=== PATIENT | male | born 1945 | race Caucasian/White ===

== ENCOUNTER → 2023-06-29 09:06 | Outpatient (REF) | payer MEDICARE, SELFPAY | LOC: RAD 09:06 | PROVIDERS: ATTENDING PHYSICIAN Specialist; FAMILY PHYSICIAN Family Medicine | DX: I63.312 Cerebral infarction due to thrombosis of left middle cerebral artery (principal) | CPT/HCPCS: 93880 ==

== ENCOUNTER 2023-09-15 22:51 | Inpatient (IN) | payer MEDICARE, SELFPAY ==
[2023-09-15] VITALS (25 sets, daily range): BP systolic 52–156; BP diastolic 34–111
[2023-09-15] MEDS: ADRENALIN 1 MG/10 ML IV (20:22)
[2023-09-15 20:28] LABS: % Basophils 0.6 % (0-2); % Eosinophils 0.3 % (0-6); % Immature Granulocytes 1.3 % (0-0.5); % Lymphocytes 43.3 % (20.5-51.1); % Monocytes 7.2 % (1.7-9.3); % Neutrophils 47.3 % (42.2-75.2); Absolute Basophils 0.1 10^3/uL (0-0.2); Absolute Immature Granulocytes 0.1 10^3/uL (0-0.05); Absolute Lymphocytes 3.9 10^3/uL (1.2-3.4); Absolute Monocytes 0.7 10^3/uL (0.1-0.6); Absolute Neutrophils 4.2 10^3/uL (1.4-6.5); Hematocrit 38.4 % (39.0-52.0); Hemoglobin 12.6 g/dL (13.0-18.0); Mean Corp Hgb Conc. 32.8 g/dL (33.0-37.0); Mean Corpuscular Hgb 34.1 pg (27.0-31.0); Mean Corpuscular Volume 104.1 fL (80.0-94.0); Mean Platelet Volume 9.8 fL (7.4-10.4); Nucleated Red Blood Cells % 0 % (-); Platelet Count 135 10^3/uL (130-400); Red Blood Cell Count 3.69 10^6/uL (4.70-6.10); Red Cell Dist. Width 12.1 % (11.5-14.5)
[2023-09-15 20:32] LABS: B.E. -23.9 mmol/L; O2 Saturation % 80.9 % (94-98); PCO2 63 mmHg (35-48); PO2 69 mmHg (83-108)
[2023-09-15 20:35] LABS: pH 6.81 (7.35-7.45)
[2023-09-15] MEDS: LASIX 80 MG IV (20:36)
[2023-09-15] MEDS: ADRENALIN 250 IV (20:37)
--- NOTE | 2023-09-15 20:38 | ED.GENMED ---
History of Present Illness
General
Chief Complaint: Unresponsive
Source: family and ambulance crew
Exam Limitations: clinical condition
Time Seen by Provider: 09/15/23 20:21
Travel History
Have you had any contact with someone who has COVID-19?: Unable to Answer
Do you have any symptoms of coronavirus? Fever > 100 degrees, chills, cough, shortness of breath, sore throat, loss of taste or smell, muscle aches, or headache?: Unable to Answer
History of Present Illness
History of Present Illness:
See MDM
Past History
Past History
ED Past Medical History: Seizures
ED Past Surgical History: Orthopedic
Social History
Tobacco: Non-smoker
Alcohol: Daily
Phy Exam
Physical Exam
Physical Exam:
See MDM
Course
Orders/Labs/Results
Orders:
Orders
09/15/23 20:09
EKG [Electrocardiogram (*1)] Urgent
Reason for Study: Palpitations
09/15/23 20:10
EKG- Treatment ONCE
09/15/23 20:15
EPINEPHrine 4 mg/250 mL NSS [Adrenalin] 4 mg in 250 ml .ROUTE .STK-MED
09/15/23 20:21
CXR Port [CR Chest Portable - 1 View] Urgent
Comment:
Reason For Exam: CHest pain/SOB/Intubated
Reason Study Needs to be Portable: Patient Unstable
09/15/23 20:22
NORepinephrine 4 MG/250 ML [Levophed] 4 mg in 250 ml .ROUTE .STK-MED
09/15/23 20:23
Complete Blood Count/With Diff Urgent
Comprehensive Metabolic Panel Urgent
Lactate Level [Lactic Acid] Urgent
PTT Urgent
Prothrombin Time Urgent
Troponin I Urgent
09/15/23 20:25
ABG [Arterial Blood Gas] Urgent
%Oxygen/Room Air: 54
09/15/23 20:32
CT Chest/abd/pelvis Angio W/wo Urgent
Comment:
Reason For Exam: cardiac arrest
CT Head W/o Iv Contrast Urgent
Comment:
Reason For Exam: cardiac arrest
09/15/23 20:34
Furosemide [Lasix] 80 mg IV NOW STA
09/15/23 20:35
EPINEPHrine 4 mg/250 mL NSS [Adrenalin] 4 mg in 250 ml IV NOW
Initial dose in mcg/min, then titrate:: 2
Titrate to keep:: MAP > 65 mmHg
Titrate by mcg/min:: 0.5 - 1 mcg/minute
Frequency of titrations (minutes):: 5
Maximum dose in mcg/min:: 10
Begin to taper infusion when:: Remained at goal for 4hrs
Taper by mcg/min:: 0.5 - 1 mcg/minute
Frequency of taper (minutes) if patient maintains goal:: 30
Taper to off?: Yes
If infusion off & no longer maintaining goal:: Contact Provider
NORepinephrine 4 MG/250 ML [Levophed] 4 mg in 250 ml IV NOW
Initial dose in mcg/min, then titrate:: 2
Titrate to keep:: MAP > 65 mmHg
Titrate by mcg/min:: 1-2 mcg/min
Frequency of titrations (minutes):: 5
Maximum dose in ICU in mcg/min:: 30
Maximum dose in IMU in mcg/min:: 8
Maximum dose in IVU in mcg/min:: 4
Begin to taper infusion when:: Remained at goal for 4hrs
Taper by mcg/min:: 1-2 mcg/min
Frequency of taper (minutes) if patient maintains goal:: 30
Taper to off?: Yes
If infusion off & no longer maintaining goal:: Contact Provider
09/15/23 20:37
Midazolam HCl [Versed] 2 mg IV NOW STA
09/15/23 20:38
Midazolam HCl [Versed] 2 mg .ROUTE .STK-MED ONE
09/15/23 20:45
FentaNYL 1,000 MCG/100 ML [Sublimaze] 1,000 mcg in 100 ml IV NOW
Indication:: Light Sedation
Begin Infusion:: Now
Goal:: pain score </= 1, CPOT 0-2
Maximum dose in mcg/hr:: 300
Continue currently infusing dose and titrate:: Yes
Titration Instructions:: Titrate every 30 minutes if patient exhibits signs of pain or discomfort
Titration Instructions:: (pain score >/= 2, CPOT >/= 3).
Titration Instructions:: Administer bolus dose and increase infusion by 25 mcg/hr.
Taper Instructions:: If pain score at goal for 4 consecutive hours (pain score </= 1, CPOT 0-2)
Taper Instructions:: decrease infusion by 50 mcg/hr every 2 hours.
Taper Instructions:: When dose </= 50 mcg/hr may turn infusion off and consider PRN
Taper Instructions:: intermittent bolus doses only.
Over-sedation Instructions:: If CPOT 0-2 (goal) and RASS -3 to -5 (below goal) decrease sedative by 50%
Over-sedation Instructions:: first. If pain score remains at goal and RASS remains below goal in 1 hour,
Over-sedation Instructions:: decrease opioid infusion by 50%.
Notify provider:: immediately if pt exhibits: chest wall rigidity, hemodynamic instability,
Notify provider:: agitation/pain despite maximum dosing, pain when RASS below goal.
Additional Instructions:: Patient MUST be mechanically ventilated.
Fentanyl Citrate/Pf [Sublimaze] 50 mcg IV [id number] PRN
Fentanyl Citrate/Pf [Sublimaze] 80 mcg IV NOW STA
09/15/23 20:52
Propofol 1,000,000 Mcg/100 ml [Diprivan] 1,000,000 mcg in 100 ml IV NOW
09/15/23 21:02
Ventilator Initial Settings [RESP] Urgent
Tidal Volume: 450
Rate: 16
FIO2: 100
PEEP: 5
09/15/23 21:03
Lorazepam [Ativan] 2 mg .ROUTE .STK-MED ONE
09/15/23 21:04
Lorazepam [Ativan] 2 mg IV NOW STA
09/15/23 21:06
Piperacillin/Tazo 3.375 Gram [Zosyn] 3.375 gram in 50 ml IV NOW
09/15/23 21:15
EPINEPHrine [Adrenalin 1 mg/10 ml] 1 mg IV NOW STA
09/15/23 21:30
Add On- LAB Urgent
Tests Added?: Triglycerides
Vancomycin [Vancocin] 2,000 mg 0.9% Sodium Chloride 500 ml [Nss] 500 ml IV NOW
09/15/23 21:31
NORepinephrine 4 MG/250 ML [Levophed] 4 mg in 250 ml IV NOW
Initial dose in mcg/min, then titrate:: 2
Titrate to keep:: MAP > 65 mmHg
Titrate by mcg/min:: 1-2 mcg/min
Frequency of titrations (minutes):: 5
Maximum dose in ICU in mcg/min:: 30
Maximum dose in IMU in mcg/min:: 8
Maximum dose in IVU in mcg/min:: 4
Begin to taper infusion when:: Remained at goal for 4hrs
Taper by mcg/min:: 1-2 mcg/min
Frequency of taper (minutes) if patient maintains goal:: 30
Taper to off?: Yes
If infusion off & no longer maintaining goal:: Contact Provider
Abnormal Lab Results
09/15/23 09/15/23
20:23 20:25
RBC 3.69 L 10^6/uL
(4.70-6.10)
Hgb 12.6 L g/dL
(13.0-18.0)
Hct 38.4 L %
(39.0-52.0)
MCV 104.1 H fL
(80.0-94.0)
MCH 34.1 H pg
(27.0-31.0)
MCHC 32.8 L g/dL
(33.0-37.0)
Abs Immat Gran (auto) 0.1 H 10^3/uL
(0-0.05)
Absolute Lymphs (auto) 3.9 H 10^3/uL
(1.2-3.4)
Absolute Monos (auto) 0.7 H 10^3/uL
(0.1-0.6)
Immature Gran % 1.3 H %
(0-0.5)
PT 19.2 H Sec
(11.4-14.6)
APTT 57.3 H Sec
(23.4-35.0)
pH 6.81 L*
(7.35-7.45)
pCO2 63 H mmHg
(35-48)
pO2 69 L mmHg
(83-108)
HCO3 10.0 L* mmol/L
(21-28)
ABG O2 Sat (Measured) 80.9 L %
(94-98)
Sodium 132 L mmol/L
(135-145)
Carbon Dioxide 8 L* mmol/L
(22-30)
Glucose 285 H mg/dl
(70-99)
Lactic Acid 13.2 H* mmol/L
(0.7-2.0)
Calcium 8.3 L mg/dl
(8.4-10.2)
AST 75 H U/L
(17-59)
Troponin I 0.198 H* ng/ml
Total Protein 5.8 L g/dl
(6.3-8.2)
Albumin 3.4 L g/dl
(3.5-5.0)
09/15/23 20:23
09/15/23 20:23
Vital Signs
Initial and Last Documented VS:
Initial Vital Signs
Pulse Resp BP Pulse Ox
74 12 52/34 85
09/15/23 20:10 09/15/23 20:10 09/15/23 20:10 09/15/23 20:10
Last Documented Vital Signs
Pulse Resp BP Pulse Ox
113 33 86/53 97
09/15/23 21:18 09/15/23 21:18 09/15/23 21:18 09/15/23 21:06
Procedures
Central Line
Right Femoral:
Indication for procedure:: cardiac arrest
Procedure completed by: Galileo Heredia DO
Consent form signed: No
If no, reason: Emergency procedure
Central line lumen: triple
Number of attempts: 1
Central line complications: none
Sterile dressing applied?: Yes
MDM/Problems Addressed
Differential Diagnosis Includes:
HPI and MDM Narrative:
78-year-old male presenting as a cardiac arrest. EMS stating that patient was at a picnic and he was complaining of shortness of breath. As soon as he entered the truck, he went to cardiac arrest. CPR was started immediately and he was placed on
Edward machine. He received 4 rounds of epinephrine. They worked on him for approximately 30 minutes. On arrival to the emergency department, patient developed ROSC. He was met by myself, nursing staff and respiratory. Respiratory placed on
vent. He is easy to bag but was developing significant hypoxia. Patient intermittently trying to overbreathing the ventilator
I did discuss the case with daughter who is at bedside indicating that he did not look right since . He is becoming winded when he exerts himself minimally.
Physical exam
General: No movement, lying in bed, eyes open. Pupils sluggish
HEENT: Not protecting airway. Pupils sluggish
Neck: appears supple
CV: Mild mottling to legs. Heart regular rate and rhythm
Resp: No accessory muscle use. Lungs appear clear.
Abd: Non-distended
Extremities: No deformities
Neuro: GCS 3
Psych: Flat affect
Skin: Mild mottling to legs
Problems Addressed including Acute and Chronic Conditions affecting care:
1. Cardiac arrest
Acuity: acute
Prognosis:unstable
Details: Given the preceding days of shortness of breath, will obtain CT angiogram to rule out evidence of PE or aortic dissection
2. Pulmonary edema
Acuity: acute
Prognosis: unstable
Details: Patient given IV Lasix
3. Multifocal pneumonia
Acuity: acute
Prognosis: unstable
Details: Patient started on vancomycin and Zosyn
Updates
Soon after patient presented to the emergency department, heart rate slowly dropping. Patient placed on epinephrine drip
Blood pressure dropping. Patient placed on norepinephrine drip
8:25 PM Case discussed with daughter at bedside. It was shared decision making to stop all resuscitation if we lose pulses again
8:40 PM patient starting to overbreathing the vent. Patient given Versed
Patient found to be acidotic with increased CO2. Respiratory to increase respiratory rate to 16
Will start propofol given agitation and trying to over breathe the vent
9 PM as patient was being taken off of the CT scanner, he developed seizure activity. Patient given [address] negative for pulmonary embolism or aortic dissection
Concern that his developing shortness of breath was developing pneumonia causing respiratory arrest
Differential Diagnosis (but not limited to): Intracranial hemorrhage, NC, aortic dissection, pulmonary embolism
Testing considered: CT angio head and neck
Drug therapy (if applicable): OTC meds, please see d/c instruction regarding Rx drugs
Amount and/or Complexity of Data Reviewed
Clinical info obtained from: EMS and daughter
External data reviewed: N/A
Labs I independently reviewed (but not limited to): ABG showing Acidosis
Radiology: X-ray independently reviewed: Chest x-ray shows pulmonary edema
Pulse Ox: hypoxic
EKG independently reviewed: Sinus bradycardia, left axis, left bundle branch, no STEMI
Burr Grinder: Sinus bradycardia
Critical Care: The high probability of a clinically significant, sudden or life threatening deterioration of the cardiopulmonary system(s) required my full and direct attention, intervention and personal management. The aggregate critical care time
was 53 minutes. This time is in addition to time spent performing reported procedures but includes the following:
[x] Data Review and interpretation
[x] Patient assessment and monitoring of vital signs
[x] Documentation
[x] Medication orders and management
Risk of Complication:
Social Determinants of health: Good social support
Discussed with other providers: Hospitalist
Escalation of Care includes Admit/Obs: Given the cardiac arrest, will admit to the ICU
Occasional wrong word or 'sound a like' substitutions may have occurred due to the inherent limitations of voice recognition software. Read the chart carefully and recognize, using context, where substitutions have occurred.
*Critical Care Note
Total Time (30-74mins, 75-104mins- exclusive of procedures): 53 min
ED Attending Note
-
Portions of this chart may have been created with voice recognition software.� Occasional wrong word or��sound alike� substitutions may have occurred due to the inherent limitations of voice recognition software.
Discharge Plan
Departure
Patient Disposition: Admit
Date of Disposition: 09/15/23
Time of Disposition: 22:00
Admit to: ICU
Presentation/result/management discussed w/ accepting MD/DO: Hospitalist
Discharge Problem:
Respiratory arrest, Acidosis, Hypoxia, Pulmonary edema, Multifocal pneumonia, Seizure
Prescriptions:
No Action
acetaminophen [Tylenol] 325 mg Tablet
325 mg PO DAILYPRN PRN (Reason: mild pain)
therapeutic multivitamin Tablet
1 tab PO DAILY
zinc gluconate 50 mg Tablet
50 mg PO DAILY
propranolol 20 mg Tablet
40 mg PO HS
cholecalciferol (vitamin D3) [Vitamin D3] 25 mcg (1,000 unit) Tablet
25 mcg PO DAILY
Prevagen capsule
1 cap PO DAILY
lisinopril 5 MG tablet
5 mg PO DAILY
clopidogrel 75 mg Tablet
75 mg PO DAILY 20 Days Qty: 20 0RF
aspirin 81 mg tablet,delayed release (DR/EC)
81 mg PO DAILY 30 Days Qty: 30 0RF
levetiracetam [Keppra] 500 mg tablet
500 mg PO BID 30 Days Qty: 60 0RF
Referrals:
Suleman Smith, [Family Provider] -
Interventions
Interventions:
*Risk Screen - Suicide Last Done: 09/15/23 20:13
*General Assessment Last Done: 09/15/23 20:13
*Neglect/Abuse Screening Last Done: 09/15/23 20:13
*ED COVID-19 Vaccine History Last Done: 09/15/23 20:13
ED- Neurological Assessment Last Done: 09/15/23 20:31
Discharge Date and Time
Print Language: CROATIAN
[2023-09-15 20:39] LABS: INR 1.64; PT 19.2 Sec (11.4-14.6)
[2023-09-15] MEDS: VERSED 2 MG IV ×2 (20:39→22:44)
[2023-09-15 20:41] LABS: APTT 57.3 Sec (23.4-35.0)
[2023-09-15 20:57] LABS: Lactic Acid 13.2 mmol/L (0.7-2.0); Troponin I 0.198 ng/ml
[2023-09-15 21:04] LABS: ALT (SGPT) 28 U/L (0-50); AST (SGOT) 75 U/L (17-59); Albumin 3.4 g/dl (3.5-5.0); Alkaline Phosphatase 58 U/L (38-126); Blood Urea Nitrogen 14 mg/dl (9-20); Calcium 8.3 mg/dl (8.4-10.2); Carbon Dioxide 8 mmol/L (22-30); Chloride 99 mmol/L (98-107); Glucose 285 mg/dl (70-99); Potassium 4.2 mmol/L (3.5-5.1); Sodium 132 mmol/L (135-145); Total Bilirubin 0.5 mg/dl (0.2-1.3); Total Protein 5.8 g/dl (6.3-8.2); eGFR > 60.00
[2023-09-15] MEDS: ATIVAN 2 MG IV ×2 (21:05→23:42)
[2023-09-15] MEDS: DIPRIVAN 100 IV (21:07)
[2023-09-15] MEDS: ZOSYN 50 IV (21:27)
[2023-09-15] MEDS: LEVOPHED 250 IV (21:32)
[2023-09-15] MEDS: VANCOCIN 540 MG IV (21:52)
--- NOTE | 2023-09-15 22:05 | HPS.HSE ---
Family Physician
-
Family Physician: Suleman Smith
Chief Complaint
-
S/P Cardiac Arrest.
History of Present Illness
Patient is a 78-year-old male who has past medical history that is significant for hypertension, alcohol dependence and recent history of seizure disorder diagnosed about 6 months ago in the setting of possible CVA for which she is to be started on
Keppra who presents to the emergency department via EMS after suffering a cardiac arrest. History obtained from family members chart.
Patient was last seen normal about 3 days ago. At that time family reported that he had severe dyspnea on exertion and fatigue. Any physical activity results in off-and-on coughing. Did not note any coughing fevers or chills. They did note
decreased appetite felt that the patient may be dehydrated. The next time was seen by family was today and he was able to tolerate p.o. and given fluids because again he thought he was dehydrated. He appeared to improve slightly with the fluids
provided. However after taking home from the family gathering he went into cardiac arrest. Apparently EMS had been called and patient was being evaluated for shortness of breath when he arrested in front of the medics. CPR was performed for 30
minutes before return of spontaneous circulation requiring 4 rounds of epi. Patient was intubated en route to the emergency department. He was hypotensive on arrival to the ED and started on norepinephrine drip and epinephrine also provided the
patient continued to be bradycardic. Per family there has been no recent changes in medications since the seizure episode he has not had a recurrent seizure episode.
Status post intubation in the ED and on multiple pressors is maintaining a MAP of around 65. He was given IV Lasix. Intubated with vent settings of 16 450 105 with a low O2 saturation of 90%. ECG shows sinus bradycardia at a rate of 55 with a 4
degree AV block and no acute ST or T wave changes. Initial troponin was 0.198. Chest x-ray shows diffuse interstitial opacities. CT a of the chest was negative for dissection or PE. There was multifocal infiltrates and bilateral small pleural
effusions. White count was 9 hemoglobin was 12.6 with a platelet count of 135 and INR 1.6. He had a lactic acid of 13.2 with a bicarb of 8. Rest of the chemistry is unremarkable. ABG showed a pH of 6.8/ pCO2 63.
Medical History
Past Medical History
Past Medical History: Reports CVA, GERD, HTN, Hypercholesterolemia and Seizures
Past Surgical History: Reports None
Social History
Unable to obtain full social history at this time due to: Acuity
Family History
Family History: Not pertinent
Allergies / Home Medications
Allergies reflects when Allergies were last updated in [employer].
Home Medications with original date entered in [employer]
Allergy/Medication List:
Allergies
Allergy/AdvReac Type Severity Reaction Status Date / Time
No Known Allergies Allergy Verified 02/14/23 16:44
Home Medications
Prevagen 1 cap PO DAILY 02/14/23
acetaminophen 325 mg tablet (Tylenol) 325 mg PO DAILYPRN PRN mild pain 02/14/23
cholecalciferol (vitamin D3) 25 mcg (1,000 unit) tablet (Vitamin D3) 25 mcg PO DAILY 02/14/23
lisinopril 5 mg tablet 5 mg PO DAILY 02/14/23
propranolol 20 mg tablet 40 mg PO HS 02/14/23
therapeutic multivitamin 1 tab PO DAILY 02/14/23
zinc gluconate 50 mg tablet 50 mg PO DAILY 02/14/23
aspirin 81 mg tablet,delayed release 81 mg PO DAILY 30 days #30 tabs 02/15/23
clopidogrel 75 mg tablet 75 mg PO DAILY 20 days #20 tabs 02/15/23
levetiracetam 500 mg tablet (Keppra) 500 mg PO BID 30 days #60 tabs 02/15/23
Review of Systems
-
Unable to obtain full review of systems at this time due to: Patient Intubation
Physical Exam
Vital Signs
Vital Signs
Pulse Resp BP Pulse Ox
90 23 97/84 97
09/15/23 22:00 09/15/23 22:00 09/15/23 22:00 09/15/23 22:00
Physical Exam
General: Respiratory Distress
HEENT: NormoCephalic, Anicteric and Atraumatic
Respiratory: Clear and Other (Intubated and on vent)
Cardiac: S1/S2 and Regular Rhythm
Breast: Deferred by me
GI: Soft, Non Distended and Normal Bowel Sounds
Rectal: Deferred by Provider
Genito-urinary: Clear Urine and Roberto
Musculoskeletal: No Clubbing, No Cyanosis and No Edema
Skin: Warm
Neuro: Sedated
Hematologic/Lymphatic: No Lymphadenopathy
Psych: Other (sedated)
Laboratory Results
-
09/15/23 20:23
09/15/23 20:23
Laboratory Results
PT 19.2 Sec (11.4-14.6) H 09/15/23 20:
INR 1.64 09/15/23 20:
APTT 57.3 Sec (23.4-35.0) H 09/15/23 20:23
pH 6.81 (7.35-7.45) L* 09/15/23 20:25
pCO2 63 mmHg (35-48) H 09/15/23 20:25
pO2 69 mmHg (83-108) L 09/15/23 20:25
HCO3 10.0 mmol/L (21-28) L* 09/15/23 20:25
Lactic Acid 13.2 mmol/L (0.7-2.0) H* 09/15/23 20:23
Total Bilirubin 0.5 mg/dl (0.2-1.3) 09/15/23 20:
AST 75 U/L (17-59) H 09/15/23 20:23
ALT 28 U/L (0-50) 09/15/23 20:
Alkaline Phosphatase 58 U/L (38-126) 09/15/23 20:23
Troponin I 0.198 ng/ml H* 09/15/23 20:23
Data Reviewed
-
Diagnostic Radiology: Image Personally Visualized and interpreted
CT Scan: Report Reviewed by me
Medical Tests (Nuc Med, Echo, EKG etc): Image Personally Visualized and interpreted
Lab Data: Labs Reviewed by me
Old Records: Reviewed
Impression/Plan
-
IMPRESSION:
PLAN:
1. Cardiac Arrest - Patient with PEA arrest s/p CPR x 30 min and 4 rounds of EPI with ROSC. Unresponsive afterwards. Arrived intubated in ED. ECG without acute ischemia. Trop 0.19. No evidence of PE. Possible multifocal pneumonia with hypoxia
as cause of arrest versus pulmonary edema. No evidence of diffuse total body volume overload.
- admit to icu
- maintain MAP > 65 with pressors
- maintain O2 sat > 93%
- TTM
- cycle enzymes, check echo, cardiology consultation
2. Hypoxic respiratory failure - Multifocal infiltrates possible pulmonary edema versus multifocal pneumonia. No fever or leukocytosis. ?ARDS. Hypercarbia with respiratory and metabolic acidosis.
- Vent setting to mantain SaO2 > 93%, pH > 7.25 (permissive hypercapnea of ards if necessary),
- security guard consultation
- check BNP and procalcitonin
- trial of lasix in ED with about 200 ml urine output. Intermittent lasix as BP tolerates.
- empiric vanc and zosyn for now
3. Seizure d/o - H/O seizure episodes 6 months ago. Unclear if from withdrawal or secondary to CVA. On keppra at home. Appears to be having possible status in ED.
- continue propofol and titrate to stop seizures
- d/w neuro, load with keppra 3g now and continue 500mg iv bid.
- EEG ordered.
DVT PPX - lovenox sq
Code Status - Extensive discussion with family. Poor prognosis. Do not resuscitate. Intubation is ok. Other life saving measures ok.
[2023-09-15 22:43] LABS: B.E. -8.5 mmol/L; HCO3 18.4 mmol/L (21-28); O2 Saturation % 99.4 % (94-98); PCO2 42 mmHg (35-48); PO2 109 mmHg (83-108); pH 7.25 (7.35-7.45)
[2023-09-15] MEDS: KEPPRA 3000 MG IV (23:01)
[2023-09-15 23:07] LABS: Triglycerides 149 mg/dl (10-149)
[2023-09-15 23:43] LABS: COVID-19 Antigen Negative (Negative)
--- NOTE | 2023-09-15 23:50 | W.PN.UPDATE ---
Update Note
Progress Note Update
Procedure Note: Arterial Line�
� Right Wrist Arrow 20 (06/10)�
Diagnosis:��cardiac arrest/TTM
IV Line Comments: Uneventful Procedure�
Ifeanyi's test completed pre-procedure: Yes�
A-Line Comments: Sterile technique as per standard protocol, Ultrasound guided insertion�
Functioning A-line in situ: Yes�
A-line Insertion Start Time:�1120�
A-line in at:��1130
[2023-09-16] VITALS (30 sets, daily range): BP systolic 73–134; BP diastolic 44–81; PULSE 64–89
[2023-09-16] MEDS: TYLENOL ORAL SOLUTION 650 MG TUBE ×5 (00:50→23:09)
[2023-09-16] MEDS: BUSPAR 30 MG TUBE ×4 (00:50→23:10)
[2023-09-16] MEDS: D5/0.45%NACL 1000 IV (01:08)
--- NOTE | 2023-09-16 01:30 | PTCARENOTE ---
received patient from the ED. unresponsive on the vent. jerky movements in all extremities, and facial twitching. pupils 2 and reactive. no purposeful movement. no gag reflex. started cooling at 2440. vent bigeminy on the monitor. labs sent. right
radial a-line zeroed and transduced. pt incontinent x2 of loose brown stool. rectal trumpet in place. Roberto draining clear yellow urine. propofol at 50mcg per provider. epi and levo infusing.
[2023-09-16 01:34] LABS: Lactic Acid 3.3 mmol/L (0.7-2.0)
[2023-09-16 01:47] LABS: Blood Urea Nitrogen 21 mg/dl (9-20); Calcium 8.1 mg/dl (8.4-10.2); Carbon Dioxide 18 mmol/L (22-30); Chloride 100 mmol/L (98-107); Glucose 220 mg/dl (70-99); Magnesium 1.4 mg/dl (1.6-2.3); Sodium 130 mmol/L (135-145); Triglycerides 137 mg/dl (10-149); eGFR > 60.00
[2023-09-16 01:49] LABS: NT-proBNP 17900 pg/ml
[2023-09-16] MEDS: SUBLIMAZE 50 MCG IV ×2 (02:07→09:58)
--- NOTE | 2023-09-16 02:09 | PTCARENOTE ---
accu check 190. machine not carrying over to computer. per TTM protocol hourly accu checks. TELEVISION SERVICE ENGINEER order to hold the d5/0.45 and recheck glucose in an hour.
[2023-09-16 02:10] LABS: Glucose - Point of Care 190 mg/dl (70-99)
[2023-09-16] MEDS: ZOSYN 50 IV ×4 (03:12→21:42)
[2023-09-16] MEDS: MAGNESIUM SULFATE 50 IV (03:12)
[2023-09-16 03:21] LABS: Glucose - Point of Care 228 mg/dl (70-99)
[2023-09-16] MEDS: NOVOLIN R 4 UNITS IV (03:44)
[2023-09-16] MEDS: NOVOLIN R INSULIN INFUSION 100 IV ×3 (04:17→13:13)
--- NOTE | 2023-09-16 05:01 | PTCARENOTE ---
GOL notified at 5am.
[2023-09-16 05:20] LABS: Glucose - Point of Care 234 mg/dl (70-99)
[2023-09-16 06:03] LABS: B.E. -8.4 mmol/L; HCO3 17.9 mmol/L (21-28); PCO2 39 mmHg (35-48); PO2 163 mmHg (83-108); Potassium 3.2 mMOL/L (3.5-5.1); Sodium 128 mMOL/L (136-145); pH 7.27 (7.35-7.45)
[2023-09-16 06:14] LABS: APTT 35.8 Sec (23.4-35.0)
--- NOTE | 2023-09-16 06:17 | PTCARENOTE ---
daughter Kasandra called in and was updated on changes overnight. cell number is [phone]. She would like called with any changes.
[2023-09-16 06:20] LABS: Glucose - Point of Care 220 mg/dl (70-99)
[2023-09-16 06:20] LABS: Blood Urea Nitrogen 22 mg/dl (9-20); Calcium 8.1 mg/dl (8.4-10.2); Carbon Dioxide 16 mmol/L (22-30); Chloride 98 mmol/L (98-107); Glucose 235 mg/dl (70-99); Magnesium 2.3 mg/dl (1.6-2.3); Potassium 3.3 mmol/L (3.5-5.1); Sodium 127 mmol/L (135-145); eGFR > 60.00
[2023-09-16 06:26] LABS: Prealbumin (Transthyretin) 19.4 mg/dl (17.6-36.0)
[2023-09-16] MEDS: ADRENALIN 250 IV (06:41)
[2023-09-16 06:42] LABS: Lactic Acid 5.8 mmol/L (0.7-2.0)
[2023-09-16 06:43] LABS: Procalcitonin 6.78 ng/ml (0.0-0.25)
[2023-09-16] MEDS: KCL 100 IV (07:20)
--- NOTE | 2023-09-16 07:20 | PHA.VAN.IN ---
Assessment
- Assessment
Renal Function: Appears similar to baseline
Minimum Temperature: targeted temperature management protocol
Concomitant Antimicrobials: piperacillin-tazobactam
Plan
- Plan
Initial / Loading Dose: 2000mg (25 mg/kg) 09/14 21:52
Maintenance Regimen: dose by level
Monitoring: random 610 am
MRSA Screen: Ordered per protocol (PCR)
Patient is predicted to have therapeutic AUC with regimen of 1500 mg q24h, patient received a loading dose 09/14 PM will give a one-time dose of 1000mg at 12:00 then a random level in AM to assess clearance prior to starting scheduled dosing.
Pharmacokinetics Vancomycin I
- -
Patient Age: 78
Patient Sex: Male
Vancomycin Day #: 1
Indication: Pulmonary/Respiratory
Requesting Provider: Dr Self
Pertinent Antimicrobial Allergies:
no known allergies
Height / Weight:
Height 5 ft 7 in
Actual Weight 79 kg
Pertinent Past Medical History: s/p cardiac arrest
- Vital Signs / Lab Results
Temp Pulse Resp BP Pulse Ox
91.4 F L 60 16 134/69 100
09/16/23 06:00 09/16/23 06:00 09/16/23 06:00 09/16/23 03:00 09/16/23 06:00
Lab Results - Hematology
09/15/23
20:23
WBC 9.0
Lab Results - Chemistry
09/15/23 09/16/23 09/16/23
20:23 01:14 05:55
BUN 14 21 H 22 H
Creatinine 1.0 1.0 1.0
Albumin 3.4 L
09/15/23 09/16/23 09/16/23
20:23 01:14 05:55
Lactic Acid 13.2 H* 3.3 H 5.8 H*
Microbiology Results
09/15/23 23:12 Influenza Types A & B (NAOMI) - Final
Nasal Swab Negative for Influenza A & B, NAAT
Negative results must be combined with clinical observations
and patient history.
Nucleic Acid Amplification test (NAAT)performed on the
Syntaxin platform.
[2023-09-16] MEDS: REFRESH CELLUVISC GEL 1 DROPS OPHTH ×2 (07:21→19:13)
[2023-09-16] MEDS: NSS (PRESERVATIVE FREE) 10 ML IV ×2 (07:21→19:13)
[2023-09-16] MEDS: PROTONIX IV 40 MG IV ×2 (07:21→19:12)
[2023-09-16 07:36] LABS: Glucose - Point of Care 188 mg/dl (70-99)
--- NOTE | 2023-09-16 08:36 | W.PN.HOSP.TC ---
Today's Communication/Plan
-
see bold
Assessment / Plan
Assessment / Plan
Gen: NAD, NCAT
CV: RRR, +S1/S2, no m/r/g.
Resp: CTAB, no rales, wheezes, or rhonchi.
Skin: No rashes. Non lower ext edema
Neuro: sedated
CXR:
1. MODERATE ACUTE INTERSTITIAL and ALVEOLAR CARDIOGENIC PULMONARY EDEMA which is not definitively changed.
2. Mild cardiomegaly.
3. Endotracheal and nasogastric tubes remaining in place.
CT brain:
1. No CT evidence for acute intracranial hemorrhage or transcortical infarct.
2. Severe white matter leukoaraiosis in the frontal and parietal lobes which appears unchanged.
3. Moderate diffuse cerebral and cerebellar volume loss.
4. 3.8 cm arachnoid cyst in the right side of the posterior fossa which appears unchanged.
5. Endotracheal tube in place with a moderate amount of layering fluid in the posterior nasopharynx.
Acute cardiac Arrest/Acute hypoxemic and hypercapnic respiratory failure:
-Patient with PEA arrest s/p CPR x 30 min and 4 rounds of EPI with ROSC. Unresponsive afterwards. Arrived intubated in ED. ECG on admission without acute ischemia. Trop 0.19 (now increased to 39.9). No evidence of PE (awaiting official .
Possible multifocal pneumonia with hypoxia as cause of arrest versus pulmonary edema. No evidence of diffuse total body volume overload.
-Acute hypoxemic and hypercapnic respiratory failure due to PEA arrest, possible multifocal pneumonia, possible heart failure due to cardiac arrest/pulm edema
-cont Zosyn/Vanco
-cont Epi/Levophed for MAP > 65
-Targeted temperature management
-c/s cards
-check echo
-Lactic acidosis (acute metabolic acidosis), cont to trend lactic acid
-Also acute respiratory acidosis
-Lasix trialed in the ED with about 200 cc of urine output
-starting IVFs with HCO3-
Hyperglycemia:
-cont insulin infusion per protocol
Seizure d/o:
-h/o seizures 6 months ago. Unclear if from withdrawal or secondary to CVA. On keppra at home.
-Appeared to have been having possible status epilepticus in ED
-case discussed with neuro, pt loaded with 3g Keppra, cont Keppra
-check EEG
-cont propofol
Hypomagnesemia, resolved
Hyponatremia
Hypokalemia, replete
Lovenox for DVT proph
Code Status: The admitting physician had an extensive discussion with family on admission. Poor prognosis. Patient is Limited DNR at this time. Intubation/pressors are OK. No CPR/defib.
Case discussed with neuro/leaf conditioner helper.
Total critical care time spent = 45 min.
Anticipated Discharge: > 48 hours
Subjective/Interval History
-
Date of Service: September 16, 2023
Pt unresponsive, intubated/sedated.
Objective Data
-
Labs:
Laboratory Results
09/15/23 09/15/23 09/16/23
20:23 22:37 01:14
WBC
Hgb
Hct
Plt Count
PT 19.2 H
INR 1.64
APTT 57.3 H
HCO3 18.4 L
Sodium 132 L 130 L
Potassium 4.2 4.0
Chloride 99 100
Carbon Dioxide 8 L* 18 L
BUN 14 21 H
Creatinine 1.0 1.0
Glucose 285 H 220 H
Calcium 8.3 L 8.1 L
Total Bilirubin 0.5
AST 75 H
ALT 28
Alkaline Phosphatase 58
09/16/23 09/16/23 09/16/23
05:55 12:00 18:00
WBC Pending Pending
Hgb Pending Pending
Hct Pending Pending
Plt Count Pending Pending
PT 17.0 H
INR 1.40
APTT 35.8 H
HCO3 17.9 L Pending
Sodium 127 L Pending
Potassium 3.3 L Pending
Chloride 98 Pending
Carbon Dioxide 16 L Pending
BUN 22 H Pending
Creatinine 1.0 Pending
Glucose 235 H Pending
Calcium 8.1 L Pending
Total Bilirubin Pending
AST Pending
ALT Pending
Alkaline Phosphatase Pending
Vital Signs:
Vital Signs
Temp Pulse Resp BP Pulse Ox
91.5 F L 56 16 101/51 100
09/16/23 08:00 09/16/23 08:00 09/16/23 08:00 09/16/23 08:00 09/16/23 08:00
I&O
09/15/23 09/16/23 09/17/23
06:59 06:59 06:59
Intake Total 483.3 / 598.4 256.2 / 256.2
Output Total 660 / 810 250 / 250
Balance -176.7 / -211.6 6.2 / 6.2
--- NOTE | 2023-09-16 08:40 | PTCARENOTE ---
Updated assessment, vital signs ongoing and as documented. Follow up with salesperson burial needs team. Lyte replacement as ordered. Continue drip trends, critical care insulin protocol. Continue follow up lab trends ongoing. ET cares, ventilator management
with respiratory cares team. Oral cares, skin cares as per unit based protocols. Await family arrival for update. Continue with teaching, supportive cares and emotional support.
[2023-09-16 08:46] LABS: Glucose - Point of Care 189 mg/dl (70-99)
--- NOTE | 2023-09-16 09:05 | CON.NEURO ---
Neuro Assessment/Plan
Assessment
IMPRESSIONS/RECOMMENDATIONS:
Abrupt change in mental status following cardiac arrest
Prognosis unclear until approximately 3 days after discontinuance of both sedation and targeted temperature management. The patient's prognosis is poor based on 30 minutes prior to return of spontaneous circulation. Going toward a good prognosis
would be absence of cerebral edema by initial CT of head.
Of note is that this patient has experienced recent stroke and had changes by MRI in February 2023 of diffuse white matter changes and possible underlying cerebral amyloid angiopathy.
Plan
Check EEG with consideration for expansion to continuous EEG monitoring
Restart patient's usual levetiracetam 1000 mg twice a day after patient received loading dose of 3000 mg initially in the emergency department
Initiate thiamine 100 mg IV routinely
consider additional anti-seizure medication dependent on EEG result
watch for EtOH withdrawal
check blood work for additional issues
Total Critical Care Time=�50 minutes.
The neurological system is affected and the action required by me to prevent further deterioration or potential was control over the item listed first in the Impressions and Recommendations section of this note.
I was present and personally examined the patient.� I discussed patient care with other professional health care providers.
Also discussed with family.
Will continue to follow patient.
Consultation
Order
Date of Consultation: 09/16/23
Requesting Provider: Hospitalists
Reason for Consult: Encephalopathy following cardiac arrest
Subjective/Objective
Subjective Data
Date of Service: September 16, 2023
Adapted from my esteemed coworkers consultation February 15, 2023:
'This is a 77-year-old right-handed man who presented to [facility] on February 14, 2023 with a witnessed seizure. According to EMR patient was found in the elevator of independent leaving actively seizing by staff. Mr. Miller
endorses no complaints.
Brain MRI wo kahlil(02/15/2023)-small focus of abnormal restricted diffusion within the left thalamus. Posterior fossa arachnoid cyst, moderate cerebral atrophy. Multiple foci of decreased T2 gradient-echo and susceptibility weighted signal with
susceptibility blooming, as described, compatible with numerous foci of hemosiderin deposition from old microhemorrhage. Distribution would suggest that these are mainly due to hypertensive angiopathy, although a component of amyloid angiopathy is
also possible. Numerous small foci of increased T2-weighted signal within the lentiform nuclei and thalami bilaterally, most likely prominent perivascular spaces, although a component of old lacunar infarction is also possible. Moderate to severe T2
and FLAIR white matter hyperintensities.
Routine EEG(02/15/2023)-normal.
Assessment and Plan:
I. Acute/subacute left thalamic infarct. Likely etiology-small vessel disease.
II. Fist seizure. Seizures are rare manifestation of thalamic disorder. Occurrence of seizures in bilateral thalamic infarct has been reported; but seizures in unilateral thalamic infarct have been reported very rarely. Literature review showed only
single case of unilateral thalamic infarct presenting with seizures. Approximately 1/3 of patients will have a recurrent seizure within five years, and the risk is increased 2- to 2.5-fold in patients with associated brain malformation.
III. Essential tremor.
IV. 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
V. 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
-Start ASA 81 mg QD and Plavix 75mg QD;
-Lipitor 40 mg QHS;
-TTE;
-Continue Keppra 500 mg BID and Propanol for ET;
-Mr. Mckeon and his daughter were informed about [employer] driving law( � 83.4.) stating that the patient has to be free from seizure for at least 6 months immediately preceding, with or without medication.'
Subsequently, patient returned to this hospital's emergency department in April 2023 with a described seizure-like event which spontaneously resolved. The patient fell and did strike his head with associated confusion. There was no reported
bowel or bladder incontinence at that time. Patient was provided with additional levetiracetam and sent home.
Yesterday, September 15, 2023, patient returned to this hospital's emergency department with a cardiac arrest, initially with symptoms of dyspnea. The patient received 4 rounds of epinephrine and CPR for approximately 30 minutes prior to return of
spontaneous circulation. The patient was intubated and placed on a combination of propofol and fentanyl. Patient's information obtained from patient's family and medical records in addition to discussion with professional medical providers.
Objective Data
Vital Signs
Temp Pulse Resp BP Pulse Ox
32.9 C L 56 16 101/51 100
09/16/23 08:59 09/16/23 08:30 09/16/23 08:30 09/16/23 08:00 09/16/23 08:30
PT 17.0 Sec (11.4-14.6) H 09/16/23 05:55
INR 1.40 09/16/23 05:55
APTT 35.8 Sec (23.4-35.0) H 09/16/23 05:55
Sodium 127 mmol/L (135-145) L 09/16/23 05:55
Potassium 3.3 mmol/L (3.5-5.1) L 09/16/23 05:55
BUN 22 mg/dl (9-20) H 09/16/23 05:55
Glucose 235 mg/dl (70-99) H 09/16/23 05:55
Calcium 8.1 mg/dl (8.4-10.2) L 09/16/23 05:55
Oad-F-Jqprizihqtx Pept 24424 pg/ml 09/16/23 01:14
Patient Allergies
No Known Allergies Allergy (Verified 02/14/23 16:44)
Review of Systems
-
Unable to obtain full review of systems at this time due to: Patient Intubation and Lethargy
History Source: Patient
All other systems: Reviewed and negative
Physical Exam
-
General: No Apparent Distress, Intubated and Appears Stated Age
Eyes: OU Absent Papilledema, Round OU, [place] Conjunctivae and No Ptosis
HEENT: Anicteric and Moist Mucous Membranes
Neck: Full Range of Motion
Respiratory: No Dyspnea
Cardiac: No JVD
GI: Non-distended
Skin: Unremarkable
Extremities: No Clubbing, No Cyanosis and No Edema
Psych: Unable to Assess
Extended Neurological Exam
Mood & Affect: Unable to Assess
Attention Span & Concentration: Unresponsive to Verbal Stimuli and Unresponsive to Physical Stimuli
Memory: Unable to Assess
Tremor: Hand Tremor Absent and Head Tremor Absent
Involuntary Movement: Other (Frequent myoclonic movements involving bilateral lower extremities upper extremities and chin more proximal than distal, irregular, high amplitude)
Speech: Mute
Cranial Nerve II: Left Eye: Pupillary Reactivity Unremarkable, Unable to Assess Visual Solorio and Smaller than Contralateral (By 1 mm)
Cranial Nerve II: Right Eye: Pupillary Reactivity Unremarkable, Pupillary Size Unremarkable and Unable to Assess Visual Solorio
Cranial Nerves III, IV, : Extraocular Movement: Absent Doll's Eyes
Cranial Nerve V: Facial Sensation: Unable to Assess
Cranial Nerve VII: Facial Symmetry: Normal Facial Symmetry
Cranial Nerve VIII: Hearing: Unable to Assess
Cranial Nerves IX, X: Palate Movement: Unable to Assess
Cranial Nerve XI: Shoulder Shrug: Unable to Assess
Cranial Nerve XII: Tongue Protusion: Unable to Assess
Muscle Strength, Overall: Negative Spontaneously Moves
Muscle Bulk & Tone: Bulk Unremarkable and Tone Unremarkable
Pronator Drift: Unable to Assess
Deep Tendon Reflexes: Absent Throughout
Cold Sensation: Unable to Assess
Vibration Sensation: Unable to Assess
Coordination: Unable to Assess
Babinski Sign: Absent Bilaterally
Gait & Station: Unable to Assess
Data Reviewed
-
Reviewed with: Physician, Nurse and Family (At bedside)
Old Records: Summarized
Medications
-
Active Medications
Generic Name Dose Route Start Last Admin
Trade Name Freq PRN Reason Stop Dose Admin
Acetaminophen 650 mg 09/16/23 06:00 09/16/23 05:40
Acetaminophen (Oral Solution) 650 Mg/20.3 Ml Cup TUBE 09/20/23 05:59 650 mg
Q6 JONNIE Administration
Acetaminophen 650 mg 09/16/23 00:56
Acetaminophen 650 Mg Rectal Suppository RECTAL 10/14/23 00:55
Q6HPRN PRN
fever
Acetaminophen 650 mg 09/16/23 00:56
Acetaminophen 650 Mg Rectal Suppository RECTAL 09/20/23 00:55
Q6HPRN PRN
if cannot be given via tube
Aspirin 81 mg 09/16/23 08:00 09/16/23 07:21
Aspirin 81 Mg (Enteric Coated) Tablet PO 10/14/23 07:59 Not Given
DAILY JONNIE
Buspirone HCl 30 mg 09/16/23 08:00 09/16/23 07:20
Buspirone 15 Mg Tablet TUBE 10/14/23 07:59 30 mg
Q8 JONNIE Administration
Carboxymethylcellulose Sodium 1 drops 09/16/23 08:00 09/16/23 07:21
Carboxymethylcellulose Ophth Gel (Celluvisc) Droperette OPHTH 10/14/23 07:59 1 drops
BID JONNIE Administration
Dextrose 12.5 grams 09/16/23 03:11
Dextrose 50% (0.5 Grams/Ml) 50 Ml Syringe IV 10/14/23 03:10
[id number] PRN
BLOOD GLUCOSE < 70
Enoxaparin Sodium 40 mg 09/16/23 18:00
Enoxaparin Sodium 40 Mg/0.4 Ml Syringe SC 10/14/23 17:59
QPM JONNIE
Fentanyl Citrate 50 mcg 09/16/23 00:56 09/16/23 02:07
Fentanyl (50 Mcg/Ml) 100 Mcg/2 Ml Ampul IV 09/30/23 00:55 50 mcg
[id number] PRN Administration
see protocol
Protocol
Propofol 1,000,000 mcg in 100 mls @ 4.728 mls/hr 09/15/23 20:52 09/15/23 21:07
Diprivan IV 09/16/23 18:01 100 mls
NOW STA Administration
10 MCG/KG/MIN
Piperacillin Sod/Tazobactam Sod 3.375 gram in 50 mls @ 100 mls/hr 09/16/23 04:00 09/16/23 03:12
Zosyn IV 50 mls
Q6H JONNIE Administration
Vancomycin HCl 1 each/ Device 0 mls @ 0 mls/hr 09/16/23 00:56
IV
PER PROTOCOL JONNIE
Protocol
As Directed
Propofol 1,000,000 mcg in 100 mls @ 0 mls/hr 09/16/23 00:56
Diprivan IV
PER PROTOCOL JONNIE
Protocol
Per Protocol
Vecuronium [place] 60 mg/ 250 mls @ 0 mls/hr 09/16/23 00:56
Sodium Chloride IV
PER PROTOCOL JONNIE
Protocol
Per Protocol
Norepinephrine Bitartrate 4 mg in 250 mls @ 0 mls/hr 09/16/23 02:30
Levophed IV
PER PROTOCOL JONNIE
Protocol
Per Protocol
Epinephrine HCl 4 mg in 250 mls @ 0 mls/hr 09/16/23 02:30 09/16/23 06:41
Adrenalin IV 250 mls
PER PROTOCOL JONNIE Administration
Protocol
Per Protocol
Insulin Human Regular 100 units in 100 mls @ 0 mls/hr 09/16/23 03:15 09/16/23 04:17
Novolin R Insulin Infusion IV 100 mls
PER PROTOCOL JONNIE Administration
Protocol
Per Protocol
Potassium Chloride 40 meq in 100 mls @ 25 mls/hr 09/16/23 07:15 09/16/23 07:20
Kcl IV 09/16/23 11:14 100 mls
NOW STA Administration
Vancomycin HCl 1 gram in 200 mls @ 200 mls/hr 09/16/23 12:00
Vancocin IV 09/16/23 12:59
ONCE ONE
Protocol
Meperidine HCl 12.5 mg 09/16/23 00:56
Meperidine 25 Mg/Ml Injection IV
Q5MPRN PRN
BSAS >/= 1
Meperidine HCl 12.5 mg 09/16/23 00:56
Meperidine 25 Mg/Ml Injection IV 09/19/23 00:56
Q4HPRN PRN
BSAS >/= 1
Pantoprazole Sodium 40 mg 09/16/23 08:00 09/16/23 07:21
Pantoprazole Sodium 40 Mg/10 Ml Vial IV 10/14/23 07:59 40 mg
DAILY JONNIE Administration
Sodium Chloride 0 flush 09/15/23 23:00
Sodium Chloride 0.9% (Flush) Syringe IV 10/13/23 22:59
PER PROTOCOL JONNIE
Sodium Chloride 10 ml 09/16/23 08:00 09/16/23 07:21
Sodium Chloride 0.9% (Preservative Free) 10 Ml Vial IV 10/14/23 07:59 10 ml
DAILY JONNIE Administration
Vecuronium [place] 8 mg 09/16/23 00:56
Vecuronium [place] (1 Mg/Ml) 10 Mg/10 Ml 0.1 mg/kg (8 mg) 09/19/23 00:56
IV
Q1HPRN PRN
BSAS >/= 1
Protocol
Home Medications
�Medication �Instructions �Recorded
Prevagen 1 cap PO DAILY 02/14/23
acetaminophen 325 mg tablet 325 mg PO DAILYPRN PRN mild pain 02/14/23
(Tylenol)
cholecalciferol (vitamin D3) 25 25 mcg PO DAILY Supplement 02/14/23
mcg (1,000 unit) tablet (Vitamin
D3)
lisinopril 5 mg tablet 5 mg PO DAILY Blood Pressure 02/14/23
propranolol 20 mg tablet 40 mg PO HS 02/14/23
therapeutic multivitamin 1 tab PO DAILY Supplement 02/14/23
zinc gluconate 50 mg tablet 50 mg PO DAILY 02/14/23
aspirin 81 mg tablet,delayed 81 mg PO DAILY 30 days #30 tabs 02/15/23
release
clopidogrel 75 mg tablet 75 mg PO DAILY 20 days #20 tabs 02/15/23
levetiracetam 500 mg tablet 500 mg PO BID 30 days #60 tabs 02/15/23
(Keppra)
Past History
Past History
ED Past Medical History: CVA (Left thalamic acute ischemic stroke February 2023), Hypercholesterolemia, Seizures (February 2023) and Other (Morbid obesity, essential tremor, pulmonary nodule, branch retinal vein occlusion 2021, prostatic hypertrophy)
ED Past Surgical History: Orthopedic (Right knee replacement) and Other (Cataract extraction OU)
Social History
Tobacco: Non-smoker
Alcohol: Daily
Personal: Single
Family History
Family History: Other (Reviewed and noncontributory)
--- NOTE | 2023-09-16 09:08 | CON.INTV ---
Consultation
Consultation Request
Date/Time Consultation Requested: 09/16/202355
Date/Time Consultation Performed: 09/16/2023849
Requesting Provider: Dr. Self
Performing Provider: Dr. Garcias
Reason for Consultation: Out of hospital cardiac arrest
Medical History
-
Chief Complaint: Out of hospital cardiac arrest
History of Present Illness:
78-year-old male with a past medical history of below who presents with [id number] cardiac arrest. Patient lives at [facility]. His son picked him up yesterday and he was with the rest of his family members for several hours. Per
the son, the patient was not acting himself as he was complaining of abdominal pain and was having generalized weakness. The patient is an alcoholic drinking 12 bottles of wine a week and he does drink alcohol daily. The patient developed sudden
shortness of breath yesterday and there was audible gurgling, as per son. Patient was driven back to [facility] with 911 called once they arrived. When EMS arrived patient endorsed abdominal pain, appeared pale and then while being
brought into the ambulance he suffered a cardiac arrest. Per EMS, it was PEA and then asystole. Patient given 4 rounds of epinephrine en route to the hospital and was intubated in the field with Edward CPR being performed on the chest. ROSC
obtained after approximately 30 minutes. Initial labs showed Hb 12.6, metabolic and respiratory acidosis with serum bicarbonate level of 8, pCO2 42, pH 7.25, glucose 285, lactic acid 13.2, troponin initially 0.198 and this raj to 18.1 on the next
blood draw, proBNP 17,900, procalcitonin 6.78, and COVID antigen negative. Initial CT head showed no acute intracranial hemorrhage or transcortical infarct. Initial CXR showed bibasilar patchy opacities + concerns for acute interstitial pulmonary
edema. Given that the patient was not following commands or awakening, therapeutic hypothermia was initiated and patient was transferred to the ICU for further care. Critical care services now consulted for additional management/recommendations.
When I saw the patient this morning, he was intubated, sedated on propofol at 50mcg/kg/min, also on insulin at 1unit/hr; on Levophed at 16mcg/min and epinephrine at 6mcg/min. Currently intubated on lying control�CMV at 16/450/40%/5. He is
breathing at 21 breaths/min. Current BP 108/43 via A-line, heart rate 68 and SpO2 99%. He reached target hypothermic temperature at 2:45 AM today. Patient's son, Galileo, is at bedside. He is tearful but overall realistic about the situation. He
was there with the patient when he collapsed and he said that if he knew that the code was in the last over 15 minutes that he would have stopped it and let him be at peace. Now that he is here in the hospital he does want full medical care but if
his heart were to stop he does not want more than 5 minutes of CPR to be done. I answered all the patient's questions.
PMHx: Epilepsy, hypertension, former tobacco use disorder, alcohol use disorder, osteoarthritis, hearing impairment, history of CVA, GERD, hypercholesterolemia
PSHx: Corrective eye surgery at age 7, right�TKR (07/2018)
Past Medical History
Past Medical History: Other (Above as per HPI)
Past Surgical History: Other (Above as per HPI)
Social History
Tobacco: Former Smoker
Alcohol: Daily (Goes through about 12 bottles of wine a week)
Drug: None
Family History
Family History: Unable to Obtain
Allergies / Home Medications
Allergies
Allergy/AdvReac Type Severity Reaction Status Date / Time
No Known Allergies Allergy Verified 02/14/23 16:44
Home Medications
�Medication �Instructions �Recorded �Confirmed �Last Taken �Type
Prevagen 1 cap PO DAILY 02/14/23 02/14/23 02/14/23 History
acetaminophen 325 mg tablet 325 mg PO DAILYPRN PRN mild pain 02/14/23 02/14/23 Unknown History
(Tylenol)
cholecalciferol (vitamin D3) 25 25 mcg PO DAILY Supplement 11/11/2902/14/23 02/14/23 History
mcg (1,000 unit) tablet (Vitamin
D3)
lisinopril 5 mg tablet 5 mg PO DAILY Blood Pressure 02/14/23 02/14/23 02/14/23 History
propranolol 20 mg tablet 40 mg PO HS 02/14/23 02/14/23 02/13/23 History
therapeutic multivitamin 1 tab PO DAILY Supplement 02/14/23 02/14/23 02/14/23 History
zinc gluconate 50 mg tablet 50 mg PO DAILY 02/14/23 02/14/23 02/14/23 History
aspirin 81 mg tablet,delayed 81 mg PO DAILY 30 days #30 tabs 02/15/23 Unknown Rx
release
clopidogrel 75 mg tablet 75 mg PO DAILY 20 days #20 tabs 02/15/23 Unknown Rx
levetiracetam 500 mg tablet 500 mg PO BID 30 days #60 tabs 02/15/23 Unknown Rx
(Keppra)
Review of Systems
-
Unable to Obtain full review of systems at this time due to: Acuity
Vitals / Labs / Diagnostic Testing
Vital Signs
Temp Pulse Resp BP Pulse Ox
91.2 F L 63 15 102/60 100
09/16/23 08:59 09/16/23 09:30 09/16/23 09:30 09/16/23 09:00 09/16/23 09:30
Laboratory Results
09/15/23 09/15/23 09/15/23
20:23 20:25 22:37
PT 19.2 H
INR 1.64
APTT 57.3 H
pH 6.81 L* 7.25 L
pCO2 63 H 42
pO2 69 L 109 H
HCO3 10.0 L* 18.4 L
O2 Delivery Level
09/16/23
05:55
PT 17.0 H
INR 1.40
APTT 35.8 H
pH 7.27 L
pCO2 39
pO2 163 H
HCO3 17.9 L
O2 Delivery Level
Microbiology
09/15/23 23:12 Nasal Swab Influenza Types A & B (NAOMI) - Final
Negative for Influenza A & B, NAAT
Negative results must be combined with clinical observations
and patient history.
Nucleic Acid Amplification test (NAAT)performed on the
[employer] platform.
Diagnostic Testing:
Physical Exam
-
HEENT: Normocephalic and Anicteric
Cardiovascular: S1/S2 and Peripheral Edema (Negative)
Respiratory: Wheeze (Negative), Rales (bibasilar), Rhonchi (Negative) and Accessory Resp Muscle Use (n)
GI: Soft, Non Distended, Non Tender and Normal Bowel Sounds
Neurology: Other (Frequent myoclonic jerks involving the jaw, arms and legs; no gag reflex, no cough reflex, no corneal reflex bilaterally and eyes are fixed at +2mm and nonreactive)
Skin: Other (Cool extremities while on hypothermia protocol)
General: Sweats (Negative)
Assessment
-
Assessment: 78-year-old male with a past medical history of below who presents with esg-[id number] cardiac arrest. Patient lives at [facility]. His son picked him up yesterday and he was with the rest of his family members for several
hours. Per the son, the patient was not acting himself as he was complaining of abdominal pain and was having generalized weakness. The patient is an alcoholic drinking 12 bottles of wine a week and he does drink alcohol daily. The patient
developed sudden shortness of breath yesterday and there was audible gurgling, as per son. Patient was driven back to [facility] with 911 called once they arrived. When EMS arrived patient endorsed abdominal pain, appeared pale and
then while being brought into the ambulance he suffered a cardiac arrest. Per EMS, it was PEA and then asystole. Patient given 4 rounds of epinephrine en route to the hospital and was intubated in the field with Edward CPR being performed on the
chest. ROSC obtained after approximately 30 minutes. Initial labs showed Hb 12.6, metabolic and respiratory acidosis with serum bicarbonate level of 8, pCO2 42, pH 7.25, glucose 285, lactic acid 13.2, troponin initially 0.198 and this raj to 18.1
on the next blood draw, proBNP 17,900, procalcitonin 6.78, and COVID antigen negative. Initial CT head showed no acute intracranial hemorrhage or transcortical infarct. Initial CXR showed bibasilar patchy opacities + concerns for acute
interstitial pulmonary edema. Given that the patient was not following commands or awakening, therapeutic hypothermia was initiated and patient was transferred to the ICU for further care. Critical care services now consulted for additional
management/recommendations.
Chronic conditions GRID TRIMMER: Epilepsy, hypertension, former tobacco use disorder, alcohol use disorder, osteoarthritis, hearing impairment
Impression:
#Out of hospital cardiac arrest - reported to be PEA and then became asystole with ROSC after ~ 30 mins s/p 4 pushes of epi
#Aspiration pneumonia involving bilateral lungs
#Acute respiratory failure with hypoxia + hypercapnia now on mechanical ventilation
#Elevated troponin with abnormal EKG due to suspected NSTEMI - ST elevations in aVR, V1-[address] depressions, concerning for ischemia especially with new LBBB
#Acute HFpEF exacerbation with small bilateral pleural effusions and pulmonary vascular congestion in the setting of suspected NSTEMI as above
#Anemia
#Non-anion gap metabolic acidosis + respiratory acidosis
#Hyponatremia
#Hyperglycemia on insulin gtt
#Lactic acidosis
#Alcohol use disorder
#Former tobacco use disorder
#Epilepsy on Keppra
Plan:
- Continue with mechanical ventilation and therapeutic hypothermia
- prn nebulized bronchodilators
- Patient reached target hypothermic temperature overnight at around 2:45 AM and will start rewarming tonight (09/16) at around 2:45 AM
- As patient rewarms, please start weaning off all sedation if possible and then perform SBT when clinically appropriate
- Maintain SpO2 >94% by adjusting FiO2 + PEEP
- Maintain plateau pressure <30
- Continue vasopressors with goal MAP >65
- Patient having ventricular ectopy, and this could very well be due to epinephrine gtt (which was started due to bradycardia in the ER) --> wean off epinephrine gtt; start vasopressin to assist BP while weaning off epi
- Trend lactate level until <2mmol/L
- Trend serum HCO3
- Start bicarb gtt, wean off once serum HCO3>18 and pH>7.35
- Continue broad-spectrum antibiotics with vancomycin + Zosyn
- Check infectious workup with blood culture, sputum culture from ETT, and urine antigens for Legionella/strep pneumonia
- Check MRSA swab and if negative then DC IV vancomycin
- Plan for 7-10 days of ABx
- The patient is having jerking movements and this is suspicious for myoclonic jerks versus seizures � EEG is pending for today
- Neurology on board and I discussed this patient's case with Dr. Rangel
- Continue Keppra, and given the myoclonic jerking movements, neurology is starting Vimpat
- Thiamine, folate and MVN
- Hold off on diuresis given patient's hypotension and vasopressor requirements
- Check 2D-echo
- Continue to trend cTnI level until it begins to downtrend
- I discussed the patient's abnormal EKG as well as elevated troponin with cardiology, Dr. Beckman, and there is concern for ischemia � start heparin drip with rectal aspirin and monitor for bleeding
- Patient does have coffee-ground seen in OG tube and ETT; will need to closely monitor this with serial CBC to trend Hb and platelet count
- Also trend coagulation studies with PT/INR, and obviously trend aPTT while on heparin gtt
- I will consult GI as well given possible GI bleed
- In interim, I will raise PPI to 40mg IV q12hr
- Patient should obtain ischemic evaluation s/p completion of therapeutic hypothermia depending on his prognosis; defer to cardiology
- Replete electrolytes with K>4, Mg>2
- Maintain euglycemia with goal BG 140-180
- Continue insulin gtt as per hypothermia protocol
- Once ready to wean off insulin gtt, would bridge x 2 hours with lantus, giving a dose equaling ~25-30% of preceding 24 hour total daily requirement of insulin in units
- DVT ppx - heparin gtt being started as per cardiology
Lines:
Right femoral CVC
Roberto catheter
Right radial arterial catheter
ETT
OGT
I discussed goals of care with patient's son, Galileo, as well as patient's daughter, Kianna. Decision made by Kianna to keep pt DNR with no CPR, but continue intubation with mechanical ventilation. I answered all of the children's questions,
and emotional support was provided.
Critical care statement: A total of 40 minutes of critical care time was provided for this patient today. This includes management of unstable vital signs, evaluation of the patient at bedside, reviewing the patient's pertinent medical records
including radiographs, microbiology, laboratory evaluations, and discussion with primary team, consultants, pharmacy, nutrition, physical therapy, case management, charge nurse, critical care nursing, and respiratory therapy.
Data:
Head CT 09-15-2023:
1. No CT evidence for acute intracranial hemorrhage or transcortical infarct.
2. Severe white matter leukoaraiosis in the frontal and parietal lobes which appears unchanged.
3. Moderate diffuse cerebral and cerebellar volume loss.
4. 3.8 cm arachnoid cyst in the right side of the posterior fossa which appears unchanged.
5. Endotracheal tube in place with a moderate amount of layering fluid in the posterior nasopharynx.
CXR 09-16-2023:
1. MODERATE ACUTE INTERSTITIAL and ALVEOLAR CARDIOGENIC PULMONARY EDEMA which is not definitively changed.
2. Mild cardiomegaly.
3. Endotracheal and nasogastric tubes remaining in place.
[2023-09-16 09:41] LABS: Glucose - Point of Care 91 mg/dl (70-99)
[2023-09-16] MEDS: DIPRIVAN 100 IV ×3 (09:46→17:03)
[2023-09-16 09:54] LABS: Glycohemoglobin (HgbA1c) 5.1 % (4.0-5.6)
[2023-09-16] MEDS: SODIUM BICARBONATE 1150 MEQ IV (10:09)
--- NOTE | 2023-09-16 10:24 | PTCARENOTE ---
L[employer]estock [employer] Inspector and nephrology at bedside with patients son. Discuss plan of cares, follow up historical and event information. Wean epi as tolerated may use vasopressin if needed. Vitals as documented. Will follow up medications with pharmacy and via
Emar. Repeat labs and protocols ongoing. Nursing at bedside.
[2023-09-16] MEDS: THIAMINE INJECTION 100 MG IV (10:33)
[2023-09-16] MEDS: LEVOPHED 250 IV ×4 (10:39→23:19)
--- NOTE | 2023-09-16 10:41 | PTCARENOTE ---
Cardiology at bedside with patient and family. Continue follow up plan of cares. Update medication plan and continue to follow up with pharmacy and critical care team. Respiratory cares team in and out to assist with ventilator management and et
cares.
[2023-09-16 10:44] LABS: Glucose - Point of Care 139 mg/dl (70-99)
[2023-09-16] MEDS: DEXTROSE 50% SYRINGE 12.5 GRAMS IV ×2 (11:38→18:58)
[2023-09-16 11:44] LABS: Glucose - Point of Care 58 mg/dl (70-99)
[2023-09-16] MEDS: VANCOCIN 200 IV (11:54)
--- NOTE | 2023-09-16 12:00 | CM ---
CM following re: discharge planning.
Reviewed pt's chart, met with pt.
Pt is a 78 year old male, admitted with primary dx of Out of hospital cardiac arrest. Pt remains intubated, rewarming started at night, continue supportive care.
Pt is well known to this CM from previous admission, lives alone in an independent apartment at [facility], has 2 supportive children. Pt ambulates with a walker at baseline and drinks up to 2 bottles of wine daily.
PCP: Suleman Smith
Pharmacy: [facility].
D/C plan: uncertain at this time and will depend on pt's progress
CM will follow with discharge plan updates as hospitalization progresses
--- NOTE | 2023-09-16 12:02 | CON.GI ---
Consultation
-
Date/Time Consultation Requested: 09/16/23
Date/Time Consultation Performed: 09/16/23
Requesting Provider:
Performing Provider:
Reason for Consultation: CGE
Medical History
Chief Complaint / HPI
Chief Complaint: cofee ground emesis
History of Present Illness:
Patient is a 78-year-old male with history of daily alcohol use, seizure disorder , CVA brought in to the emergency department via EMS after suffering a out of hospital cardiac arrest.
As per records, patient was last about 3 days ago by family. Patient was intubated en route to the emergency department. He was noted to be hypotensive, currently on pressors and unresponsive. Metabolic acidosis noted.
He has an OG-tube that had some coffee-ground material and GI consult was called in. There is also plan to start him on heparin drip.
Reviewing labs, hemoglobin slightly low at 11.8, MCV slightly elevated which goes with chronic alcohol use. Normal platelets. AST elevated at 380 and ALT of 71, total bilirubin alkaline phosphatase in normal range. Albumin 2.9. Troponin
significantly elevated. Noted to have non-ST elevation CT with left bundle branch block.
CT scan of the chest/abdomen/pelvis pending.
Past Medical History
Past Medical History: CVA, HTN and Other (Seizures)
Past Surgical History: None
Social History
Tobacco: Other (Could not obtain)
Family History
Family History: Unable to Obtain
Allergies / Home Medications
Allergy/AdvReac Type Severity Reaction Status Date / Time
No Known Allergies Allergy Verified 02/14/23 16:44
�Medication �Instructions �Recorded
Prevagen 1 cap PO DAILY Hormonal Agent 02/14/23
acetaminophen 325 mg tablet 325 mg PO DAILYPRN PRN mild pain 02/14/23
(Tylenol)
cholecalciferol (vitamin D3) 25 25 mcg PO DAILY Supplement 02/14/23
mcg (1,000 unit) tablet (Vitamin
D3)
lisinopril 5 mg tablet 5 mg PO DAILY Blood Pressure 02/14/23
propranolol 20 mg tablet 40 mg PO HS Blood Pressure 02/14/23
therapeutic multivitamin 1 tab PO DAILY Supplement 02/14/23
zinc gluconate 50 mg tablet 50 mg PO DAILY Supplement 02/14/23
aspirin 81 mg tablet,delayed 81 mg PO DAILY 30 days #30 tabs 02/15/23
release
clopidogrel 75 mg tablet 75 mg PO DAILY 20 days #20 tabs 02/15/23
levetiracetam 500 mg tablet 500 mg PO BID 30 days #60 tabs 02/15/23
(Keppra)
Review of Systems
-
Unable to obtain full review of systems at this time due to: Patient Intubation
Vital Signs
Temp Pulse Resp BP Pulse Ox
91.7 F L 69 22 89/48 98
09/16/23 11:03 09/16/23 11:03 09/16/23 11:03 09/16/23 11:03 09/16/23 11:03
Physical Exam
Exam
GI: Soft and Non Distended
Patient intubated.
Results
WBC 9.0 10^3/uL (4.8-10.8) 09/15/23 20:23
Hgb 12.6 g/dL (13.0-18.0) L 09/15/23 20:23
Hct 38.4 % (39.0-52.0) L 09/15/23 20:23
MCV 104.1 fL (80.0-94.0) H 09/15/23 20:23
Plt Count 135 10^3/uL (130-400) 09/15/23 20:23
Absolute Neuts (auto) 4.2 10^3/uL (1.4-6.5) 09/15/23 20:23
PT 17.0 Sec (11.4-14.6) H 09/16/23 05:55
INR 1.40 09/16/23 05:55
APTT 35.8 Sec (23.4-35.0) H 09/16/23 05:55
Sodium 127 mmol/L (135-145) L 09/16/23 05:55
Potassium 3.3 mmol/L (3.5-5.1) L 09/16/23 05:55
Chloride 98 mmol/L (98-107) 09/16/23 05:55
Carbon Dioxide 16 mmol/L (22-30) L 09/16/23 05:55
BUN 22 mg/dl (9-20) H 09/16/23 05:55
Creatinine 1.0 mg/dL (0.7-1.3) 09/16/23 05:55
Calcium 8.1 mg/dl (8.4-10.2) L 09/16/23 05:55
Total Bilirubin 0.5 mg/dl (0.2-1.3) 09/15/23 20:23
AST 75 U/L (17-59) H 09/15/23 20:23
ALT 28 U/L (0-50) 09/15/23 20:23
Alkaline Phosphatase 58 U/L (38-126) 09/15/23 20:23
Diagnostic Image Results:
Prior GI Procedures:
EGD:
Colonoscopy:
Assessment / Plan
-
78-year-old male with history of alcohol abuse, hypertension, CVA, seizure disorder who was brought in without of hospital cardiac arrest, noted to have coffee-ground emesis in the orogastric tube and GI consult called in.
-Coffee-ground emesis-rule out esophagitis, gastritis, ulcer disease
With alcohol abuse, will need to also consider liver disease
Await CTA of the chest/abdomen/pelvis to see if there is any evidence of liver disease/varices
Continue Protonix 40 mg IV twice daily. Patient on multiple drips and had to stop, history of and this time.
Monitor H&H and transfuse as needed.
No plans for urgent upper endoscopy at this time unless overt active bleeding.
Will follow closely
-Continue to follow LFTs
Expect significant elevation in transaminases, especially if there is component of shock liver with out of hospital cardiac arrest history
Will follow
-
-
Thank you for consultation and allowing me to participate in the patient's care. Please call the grinder and honer operator automatic GI physician during the after hours with any questions or concerns.
[2023-09-16 12:14] LABS: Glucose - Point of Care 207 mg/dl (70-99)
[2023-09-16 12:18] LABS: Hematocrit 31.9 % (39.0-52.0); Hemoglobin 11.8 g/dL (13.0-18.0); Mean Corpuscular Hgb 34.4 pg (27.0-31.0); Mean Platelet Volume 9.4 fL (7.4-10.4); Platelet Count 172 10^3/uL (130-400); Red Blood Cell Count 3.43 10^6/uL (4.70-6.10); Red Cell Dist. Width 11.9 % (11.5-14.5); White Blood Cell Count 20.9 10^3/uL (4.8-10.8)
[2023-09-16 12:32] LABS: Magnesium 2.1 mg/dl (1.6-2.3)
[2023-09-16 12:39] LABS: Lactic Acid 5.7 mmol/L (0.7-2.0)
[2023-09-16] MEDS: ASPIRIN 300 MG RECTAL (12:44)
[2023-09-16] MEDS: HEPARIN 25000 UNITS/250 ML IV (12:44)
[2023-09-16] MEDS: LIPITOR 80 MG PO (12:44)
[2023-09-16 12:51] LABS: AST (SGOT) 390 U/L (17-59); Albumin 2.9 g/dl (3.5-5.0); Alkaline Phosphatase 67 U/L (38-126); Blood Urea Nitrogen 23 mg/dl (9-20); Carbon Dioxide 16 mmol/L (22-30); Chloride 99 mmol/L (98-107); Estimated Creatinine Clearance 57 ml/min; Glucose 208 mg/dl (70-99); Potassium 3.9 mmol/L (3.5-5.1); Sodium 129 mmol/L (135-145); Total Bilirubin 0.6 mg/dl (0.2-1.3); Total Protein 5.2 g/dl (6.3-8.2); eGFR > 60.00
[2023-09-16 13:08] LABS: Glucose - Point of Care 194 mg/dl (70-99)
[2023-09-16] MEDS: VERSED 50 IV (13:12)
[2023-09-16 13:22] LABS: ALT (SGPT) 71 U/L (0-50)
--- NOTE | 2023-09-16 13:25 | CON.CAR ---
Consultation
Consultation Request
Date/Time Consultation Requested: 09/16/23
Date/Time Consultation Performed: 09/16/23
Requesting Provider: Clair
Performing Provider: Sukhdev
Reason for Consultation: cardaic arrest
Medical History
-
Chief Complaint: cardiac arrest
History of Present Illness:
History obtained from patient's son who was at bedside as well as chart review
78-year-old man past medical history as below who was at a family gathering yesterday. Following this his son drove him back to his residence. Patient reportedly with worsening dyspnea over the course of the drive as well as diaphoresis. When
they arrived at his residence EMS was called and patient subsequently developed cardiac arrest. This was reportedly PEA and CPR was performed for 30 minutes prior to obtaining ROSC. He was brought to [place] emergency department where he was
started on multiple pressors. Patient was significantly acidotic with a pH of 6.8 and lactate over 13. He was intubated and admitted to the medical ICU for further management. He remains intubated and sedated and is undergoing targeted
temperature management at this time.
Admission ECG showed diffuse ST changes and new left bundle branch block. Initial troponin was 0.198 and up trended 18.1, 39.9, 39.3. proBNP of 17,000.
PMHx:
CVA
HTN
HLD
Seizure disorder
Alcohol dependence
Past Medical History
Past Medical History: Other (as above)
Past Surgical History: Other (as above)
Social History
Tobacco: Non-Smoker
Family History
Family History: Unable to Obtain
Allergies / Home Medications
Allergy/AdvReac Type Severity Reaction Status Date / Time
No Known Allergies Allergy Verified 02/14/23 16:44
�Medication �Instructions �Recorded �Confirmed �Type
Prevagen 1 cap PO DAILY Hormonal Agent 02/14/23 02/14/23 History
acetaminophen 325 mg tablet 325 mg PO DAILYPRN PRN mild pain 02/14/23 02/14/23 History
(Tylenol)
cholecalciferol (vitamin D3) 25 25 mcg PO DAILY Supplement 02/14/23 02/14/23 History
mcg (1,000 unit) tablet (Vitamin
D3)
lisinopril 5 mg tablet 5 mg PO DAILY Blood Pressure 02/14/23 02/14/23 History
propranolol 20 mg tablet 40 mg PO HS Blood Pressure 02/14/23 02/14/23 History
therapeutic multivitamin 1 tab PO DAILY Supplement 02/14/23 02/14/23 History
zinc gluconate 50 mg tablet 50 mg PO DAILY Supplement 02/14/23 02/14/23 History
aspirin 81 mg tablet,delayed 81 mg PO DAILY 30 days #30 tabs 02/15/23 Rx
release
clopidogrel 75 mg tablet 75 mg PO DAILY 20 days #20 tabs 02/15/23 Rx
levetiracetam 500 mg tablet 500 mg PO BID 30 days #60 tabs 02/15/23 Rx
(Keppra)
Review of Systems
-
Unable to obtain full review of systems at this time due to: Patient Intubation
Physical Exam
Vital Signs
Temp Pulse Resp BP Pulse Ox
91.9 F L 70 30 103/57 99
09/16/23 12:10 09/16/23 13:00 09/16/23 13:00 09/16/23 12:00 09/16/23 13:00
Lab Results
Troponin I 39.300 ng/ml H* 09/16/23 12:03
Spx-Y-Ezjyplzlhta Pept 97818 pg/ml 09/16/23 01:14
Physical Exam
General: Well Developed
HEENT: Normocephalic
Respiratory: Other (Mechanically ventilated)
Cardiac: S1/S2 and Regular Rhythm
GI: Soft
Musculoskeletal: No Edema
Skin: Dry and Other (Cool)
Neuro: Sedated and Other (Myoclonic jerks)
Psych: Other (Sedated)
Impression / Plan
-
Process Technician: Vic
PMHx:
PEA arrest, out of hospital
Troponin elevation
CVA
HTN
HLD
Seizure disorder
Alcohol dependence
Plan:
-Out of hospital PEA arrest with prolonged downtime, currently on targeted temperature management, remains intubated and sedated, requiring pressor support
-Initial ECG with new left bundle branch block, would repeat ECG today
-Troponin elevation with peak at 39. Unclear if this is type I or type II RI.
-Plan to treat medically for ACS with aspirin, statin and heparin drip x 48 hours
-If he has neurologic recovery would plan for ischemic evaluation
-Check transthoracic echocardiogram in AM
Discussed with son at bedside as well as steward/stewardess banquet
Data Reviewed
-
EKG: Tracing Personally Visualized and interpreted
Radiology: Report Reviewed by me
CT Scan: Report Reviewed by me
Medical Tests (Nuc Med, Echo etc): Report Reviewed by me
Labs: Labs Reviewed by me
Old Records: Reviewed
--- NOTE | 2023-09-16 14:06 | PTCARENOTE ---
Continue with follow up assessment trends. Seizure activity follow up with neurology and via continues EEG. Follow up with vascular access team. Review drips and concerns thru shift. Continue with ongoing lab trends. Nursing remains at bedside.
[2023-09-16 14:13] LABS: Glucose - Point of Care 136 mg/dl (70-99)
[2023-09-16] MEDS: KCL ELIXIR 20 MEQ TUBE (15:00)
[2023-09-16 15:07] LABS: Glucose - Point of Care 136 mg/dl (70-99)
[2023-09-16 15:13] LABS: Urine Albumin Negative (Neg - Trace); Urine Bilirubin Negative (Negative); Urine Character Clear (Clear); Urine Color Straw; Urine Glucose Negative (Negative); Urine Ketone Negative (Negative); Urine Leukocyte 1+ (Negative); Urine Nitrite Negative (Negative); Urine Occult Blood 4+ (Negative); Urine Urobilinogen Negative (Neg - 1+)
[2023-09-16 15:37] LABS: Urine Bacteria Few (Negative); Urine Squamous Cell 0-2 /LPF (Few)
[2023-09-16] MEDS: VIMPAT 100 MG IV (16:00)
[2023-09-16 16:13] LABS: Glucose - Point of Care 114 mg/dl (70-99)
--- NOTE | 2023-09-16 16:31 | PTCARENOTE ---
picc order on hold for now, per lacho VALADEZ. pt with adequate iv access. VAT available to place picc if/when needed
[2023-09-16] MEDS: SUBLIMAZE 100 IV (16:54)
[2023-09-16 17:10] LABS: Glucose - Point of Care 95 mg/dl (70-99)
[2023-09-16] MEDS: LIPITOR TUBE (17:40)
[2023-09-16 17:51] LABS: B.E. -1.1 mmol/L; HCO3 23.5 mmol/L (21-28); PCO2 38 mmHg (35-48); PO2 120 mmHg (83-108)
[2023-09-16 17:53] LABS: O2 Therapy %Oxygen/Room Air 40%
--- NOTE | 2023-09-16 17:58 | PTCARENOTE ---
Update with primer inserting machine operator team. Follow up abg as noted and reviewed with MD. Presently on 40%fio2. Saturation stable thru shift. TTM presently in process with rewarming to begin 09/16 @0245am. Continue with ongoing drip trends, follow up with pharmacy
thru shift. Continue supportive cares, emotional support. Continue to maintain calm, quiet environment with minimal stimulation.. Nursing remains at bedside.
[2023-09-16 18:27] LABS: Hematocrit 32.2 % (39.0-52.0); Hemoglobin 11.5 g/dL (13.0-18.0); Mean Corp Hgb Conc. 35.7 g/dL (33.0-37.0); Mean Corpuscular Hgb 33.9 pg (27.0-31.0); Mean Platelet Volume 9.6 fL (7.4-10.4); Platelet Count 189 10^3/uL (130-400); Red Blood Cell Count 3.39 10^6/uL (4.70-6.10); Red Cell Dist. Width 11.5 % (11.5-14.5); White Blood Cell Count 16.5 10^3/uL (4.8-10.8)
--- NOTE | 2023-09-16 18:27 | PTCARENOTE ---
Bedside review with manager facility team. Follow up drip trends, events of day, labs and pending labs, TTM protocol and concerns for following shift. Continue with teaching and supportive cares when available. Social service was updated thru day.
Continue with bedside critical care nursing.
[2023-09-16 18:47] LABS: ALT (SGPT) 62 U/L (0-50); AST (SGOT) 333 U/L (17-59); Albumin 2.7 g/dl (3.5-5.0); Alkaline Phosphatase 69 U/L (38-126); Blood Urea Nitrogen 23 mg/dl (9-20); Calcium 7.7 mg/dl (8.4-10.2); Carbon Dioxide 22 mmol/L (22-30); Chloride 98 mmol/L (98-107); Estimated Creatinine Clearance 63 ml/min; Glucose 69 mg/dl (70-99); Potassium 3.3 mmol/L (3.5-5.1); Sodium 128 mmol/L (135-145); Total Bilirubin 0.6 mg/dl (0.2-1.3); eGFR > 60.00
[2023-09-16] MEDS: KEPPRA 1000 MG IV (19:12)
[2023-09-16] MEDS: SENNA SYRUP 8.80000000000000071 MG TUBE (19:13)
[2023-09-16 19:30] LABS: Glucose - Point of Care 103 mg/dl (70-99)
[2023-09-16] MEDS: KCL 160 MEQ IV (19:42)
[2023-09-16] MEDS: KCL ELIXIR 40 MEQ TUBE (19:45)
[2023-09-16] MEDS: NSS 1000 IV (19:52)
[2023-09-16 20:05] LABS: Glucose - Point of Care 94 mg/dl (70-99)
--- NOTE | 2023-09-16 20:29 | PTCARENOTE ---
bedside report done with dayshift. gtts reviewed. insulin gtt off, checking sugars Q4. K resulted at 3.3 replaced IV and PO. pupils 2 and sluggish. no cough or gag reflex. ETT 7.5 24 at the center. palpable pedal pulses. labs drawn from a-line
zeroed and transduced. thibodeaux draining clear yellow urine.
[2023-09-16 20:49] LABS: APTT > 200 Sec (23.4-35.0)
--- NOTE | 2023-09-16 21:11 | W.PN.UPDATE ---
Update Note
Progress Note Update
Ongoing continuous EEG monitoring update:
Burst-suppression demonstrated with bursts lasting up to 10 seconds interspersed by high-amplitude 3-second delta activity.
Will lower newly initiated Midazolam. Continue Lacosamide.
Full interpretation to follow
[2023-09-16 21:40] LABS: Creatine Phosphokinase 1071 U/L (55-170)
[2023-09-17] VITALS (22 sets, daily range): BP systolic 81–118; BP diastolic 47–56; BMI 27.5
[2023-09-17 00:36] LABS: Glucose - Point of Care 97 mg/dl (70-99)
[2023-09-17 00:39] LABS: % Basophils 0.2 % (0-2); % Eosinophils 0.1 % (0-6); % Immature Granulocytes 0.4 % (0-0.5); % Lymphocytes 9.7 % (20.5-51.1); % Monocytes 7.3 % (1.7-9.3); % Neutrophils 82.3 % (42.2-75.2); Absolute Immature Granulocytes 0.1 10^3/uL (0-0.05); Absolute Lymphocytes 1.4 10^3/uL (1.2-3.4); Absolute Neutrophils 11.8 10^3/uL (1.4-6.5); Hematocrit 32.6 % (39.0-52.0); Mean Corp Hgb Conc. 36.8 g/dL (33.0-37.0); Mean Corpuscular Hgb 34.3 pg (27.0-31.0); Mean Corpuscular Volume 93.1 fL (80.0-94.0); Mean Platelet Volume 9.8 fL (7.4-10.4); Nucleated Red Blood Cells % 0 % (-); Platelet Count 153 10^3/uL (130-400); Red Cell Dist. Width 11.4 % (11.5-14.5); White Blood Cell Count 14.3 10^3/uL (4.8-10.8)
[2023-09-17 00:47] LABS: INR 1.35; PT 16.5 Sec (11.4-14.6)
[2023-09-17 00:48] LABS: Lactic Acid 1.4 mmol/L (0.7-2.0)
[2023-09-17 01:02] LABS: APTT > 200 Sec (23.4-35.0)
[2023-09-17 01:05] LABS: ALT (SGPT) 61 U/L (0-50); AST (SGOT) 286 U/L (17-59); Albumin 2.8 g/dl (3.5-5.0); Alkaline Phosphatase 65 U/L (38-126); Blood Urea Nitrogen 23 mg/dl (9-20); Calcium 7.7 mg/dl (8.4-10.2); Carbon Dioxide 19 mmol/L (22-30); Chloride 99 mmol/L (98-107); Estimated Creatinine Clearance 71 ml/min; Glucose 117 mg/dl (70-99); Phosphorus 3.4 mg/dl (2.5-4.5); Potassium 4.3 mmol/L (3.5-5.1); Sodium 128 mmol/L (135-145); Total Bilirubin 0.7 mg/dl (0.2-1.3); Total Protein 5.1 g/dl (6.3-8.2); eGFR > 60.00
[2023-09-17] MEDS: DIPRIVAN 100 IV ×5 (01:08→20:01)
[2023-09-17 01:38] LABS: Total CK 789 U/L (55-170)
[2023-09-17] MEDS: PITRESSIN 100 IV ×3 (02:59→23:12)
--- NOTE | 2023-09-17 03:00 | PTCARENOTE ---
started rewarming at 0243. SBP in the 60's vasopressin added. SBP in the 190's, levo tapered down. labs sent, pending results. pt reamins with no cough or gag. pupils 2 sluggish. CARLOS called for an update, aware of the vasopressin being added.
[2023-09-17 04:00] LABS: Glucose - Point of Care 130 mg/dl (70-99)
[2023-09-17] MEDS: ZOSYN 50 IV ×4 (04:16→21:57)
[2023-09-17] MEDS: VIMPAT 100 MG IV ×2 (04:16→15:47)
[2023-09-17] MEDS: TYLENOL ORAL SOLUTION 650 MG TUBE ×4 (05:16→23:16)
[2023-09-17 05:18] LABS: B.E. -5.2 mmol/L; HCO3 18.6 mmol/L (21-28); PCO2 30 mmHg (35-48); PO2 186 mmHg (83-108)
[2023-09-17 05:40] LABS: APTT 175.6 Sec (23.4-35.0)
[2023-09-17 05:55] LABS: Blood Urea Nitrogen 22 mg/dl (9-20); Calcium 7.4 mg/dl (8.4-10.2); Carbon Dioxide 19 mmol/L (22-30); Chloride 100 mmol/L (98-107); Creatine Phosphokinase 559 U/L (55-170); Estimated Creatinine Clearance 63 ml/min; Glucose 132 mg/dl (70-99); Magnesium 1.8 mg/dl (1.6-2.3); Phosphorus 3.5 mg/dl (2.5-4.5); Potassium 4.5 mmol/L (3.5-5.1); Sodium 126 mmol/L (135-145); eGFR > 60.00
[2023-09-17 05:59] LABS: Vancomycin Random 18.2 ug/ml
[2023-09-17 06:03] LABS: Procalcitonin 9.09 ng/ml (0.0-0.25)
--- NOTE | 2023-09-17 07:23 | W.PN.NEURO.1 ---
Today's Communication / Plan
-
-Neurologic checks
-Continue continuous EEG
-Continue current doses of Levetiracetam and Lacosamide
-Continuous EEG will guide dosing of Midazolam
-Depending on patient stability would hope to obtain some form of brain imaging on 09/17 (CT head without contrast seems more appropriate given critically ill on multiple infusions)
-Slow rewarming, monitor electrolytes, for shivering, cardiac telemetry
Will follow
ICU time = 45 minutes
Neuro Assessment/Plan
Assessment
78 year old man with history of alcohol use disorder, hypertension, hyperlipidemia, imaging finding of previous stroke, previous seizure possibly alcohol related presenting with cardiac arrest. Undergoing TTM.
Approximately 30 minutes of downtime with arrest.
Initial CT head non contrast with no acute changes, no edema had fairly normal bishop/white matter differentiation
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
Patient very likely had sustained an anoxic brain injury
Malignant EEG along with myoclonus is a poor prognostic factor
Further prognosis for neurologic function/recovery will depend on neurologic examination after rewarming and if able to achieve wean from sedation to give better neurologic examination, additionally further brain imaging will guide prognosis
Subjective/Objective
Subjective Data
Date of Service: September 16
No acute events, is on 2 pressors, fentanyl, propofol, midazolam, heparin, insulin infusions. Is on continuous EEG.
Objective Data
Vital Signs
Temp Pulse Resp BP Pulse Ox
93.4 F L 51 16 90/53 100
09/17/23 06:00 09/17/23 05:30 09/17/23 05:30 09/17/23 05:00 09/17/23 05:30
PT 16.5 Sec (11.4-14.6) H 09/17/23 00:31
INR 1.35 09/17/23 00:31
APTT 175.6 Sec (23.4-35.0) H* 09/17/23 05:10
Sodium 126 mmol/L (135-145) L 09/17/23 05:10
Potassium 4.5 mmol/L (3.5-5.1) 09/17/23 05:10
BUN 22 mg/dl (9-20) H 09/17/23 05:10
Glucose 132 mg/dl (70-99) H 09/17/23 05:10
Calcium 7.4 mg/dl (8.4-10.2) L 09/17/23 05:10
Phosphorus 3.5 mg/dl (2.5-4.5) 09/17/23 05:10
Pfi-Z-Ofnaqbspwzd Pept 81133 pg/ml 09/16/23 01:14
Patient Allergies
No Known Allergies Allergy (Verified 02/14/23 16:44)
Review of Systems
-
Unable to obtain full review of systems at this time due to: Patient Intubation and Coma
Physical Exam
-
General: Intubated and Obese
Eyes: No Ptosis
HEENT: Normocephalic
Neck: No Bruits Bilaterally
Respiratory: Clear to Auscultation
Cardiac: Regular Rhythm
GI: Normal Bowel Sounds, Soft and Non-tender
Skin: Unremarkable
Extremities: No Clubbing
Psych: Unable to Assess
Extended Neurological Exam
Attention Span & Concentration: Other (Comatose, intubated, sedated, [id number])
Memory: Unable to Assess
Tremor: Hand Tremor Absent
Involuntary Movement: None and Other (No abnormal movements or myoclonus seen currently)
Speech: Mute
Cranial Nerve II: Left Eye: Other (Pupils miotic 2 mm equal with no reaction to light bilaterally)
Cranial Nerve II: Right Eye: Other (Pupils miotic 2 mm equal with no reaction to light bilaterally)
Cranial Nerves III, IV, : Extraocular Movement: Other (Resting gaze midline, VOR is absent (positive doll's eyes))
Cranial Nerve V: Facial Sensation: Other (Corneal reflex absentbilaterally)
Cranial Nerve VII: Facial Symmetry: Other (Corneal reflex absentbilaterally)
Cranial Nerves IX, X: Palate Movement: Other (No cough or gag)
Muscle Strength, Overall: Other (No movement to sternal rub or peripheral pain in any extremity)
Deep Tendon Reflexes: Trace Throughout
Touch Sensation: Negative Withdrawal to Pain
Babinski Sign: Absent Bilaterally
Data Reviewed
-
CT Head: Report Reviewed and Image Reviewed
EEG: Report Reviewed
[2023-09-17] MEDS: ASPIRIN 300 MG RECTAL (07:35)
[2023-09-17] MEDS: BUSPAR 30 MG TUBE (07:35)
[2023-09-17] MEDS: KEPPRA 1000 MG IV ×2 (07:36→19:58)
[2023-09-17] MEDS: NSS (PRESERVATIVE FREE) IV (07:37)
--- NOTE | 2023-09-17 07:37 | EEGC.RPT ---
Continuous EEG Report
Recording
Start Date of Data Reviewed: 09/16/23
Start Time of Data Reviewed: 12:00
End Date of Data Reviewed: 09/16/23
End Time of Data Reviewed: 12:00
Type of EEG: Continuous
Done with Video Recording: Yes
Study Sequence: Initiation of Study
Electrocardiogram: Unremarkable
Report
24 HOUR CONTINUOUS EEG REPORT
24 HOUR CONTINUOUS EEG INTERPRETATION:
Severely abnormal EEG for age in wakefulness through drowsiness due to:
Isoelectric burst suppression activity lack of unresponsiveness.
CLINICAL CORRELATION:
This study was suggestive of severe bihemispheric suppression of activity.
Clinical correlation is advised.
METHODS:
A 21 channel digitized electroencephalogram (EEG) was performed at the bedside in the intensive care unit. The 10/20 international system of electrode placement was used. ECG was monitored. Persyst quantitative analysis was performed.
ELECTROENCEPHALOGRAPHER IMPRESSION(S):
Quality
Good
Background
Maximum: Delta, poorly organized, initially beta leading to delta after 15:00 hours
Amplitude: Medium
Anterior-posterior gradient: Absent
Photic stimulation
Failed to produce activation of the record
Sleep
Not demonstrated
Abnormal EEG activity
Isoelectric suppressions lasting for approximately 5-10 seconds were interrupted by bursts of poorly organized delta activity lasting for approximately 1 second.
Electrocardiogram
Irregular at times
[2023-09-17] MEDS: PROTONIX IV 40 MG IV ×2 (07:38→19:58)
[2023-09-17] MEDS: NSS (PRESERVATIVE FREE) 10 ML IV ×2 (07:38→19:59)
[2023-09-17] MEDS: REFRESH CELLUVISC GEL 1 DROPS OPHTH ×2 (07:38→19:59)
[2023-09-17] MEDS: SENNA SYRUP TUBE (07:38)
[2023-09-17] MEDS: THIAMINE INJECTION 100 MG IV (07:38)
[2023-09-17 08:11] LABS: Glucose - Point of Care 154 mg/dl (70-99)
[2023-09-17 09:04] LABS: Hematocrit 29.2 % (39.0-52.0); Hemoglobin 10.9 g/dL (13.0-18.0); Mean Corp Hgb Conc. 37.3 g/dL (33.0-37.0); Mean Corpuscular Hgb 34.1 pg (27.0-31.0); Mean Corpuscular Volume 91.3 fL (80.0-94.0); Mean Platelet Volume 9.9 fL (7.4-10.4); Platelet Count 153 10^3/uL (130-400); Red Cell Dist. Width 11.8 % (11.5-14.5); White Blood Cell Count 14.9 10^3/uL (4.8-10.8)
[2023-09-17] MEDS: NSS 1000 IV ×2 (09:04→20:00)
--- NOTE | 2023-09-17 09:08 | W.PN.HOSP.TC ---
Today's Communication/Plan
-
see bold
Assessment / Plan
Assessment / Plan
Gen: NAD, NCAT
CV: remains RRR, +S1/S2, no m/r/g.
Resp: CTAB anteriorly, no rales, wheezes, or rhonchi.
Abd: +BS/soft/ND
Skin: No rashes. Non lower ext edema
Neuro: sedated
CXR:
1. MODERATE ACUTE INTERSTITIAL and ALVEOLAR CARDIOGENIC PULMONARY EDEMA which is not definitively changed.
2. Mild cardiomegaly.
3. Endotracheal and nasogastric tubes remaining in place.
CT brain:
1. No CT evidence for acute intracranial hemorrhage or transcortical infarct.
2. Severe white matter leukoaraiosis in the frontal and parietal lobes which appears unchanged.
3. Moderate diffuse cerebral and cerebellar volume loss.
4. 3.8 cm arachnoid cyst in the right side of the posterior fossa which appears unchanged.
5. Endotracheal tube in place with a moderate amount of layering fluid in the posterior nasopharynx.
CTA C/A/P:
CHEST CTA:
1. Large amount of symmetric bilateral airspace consolidation in the lower lobes and moderate centrilobular ground-glass opacity in the upper lobes which is most consistent with SEVERE ACUTE ALVEOLAR PULMONARY EDEMA given the history of cardiac
arrest. SEVERE BILATERAL PNEUMONIA (possibly aspiration pneumonia) is an alternative diagnostic possibility.
2. Small bilateral pleural effusions.
3. Severe calcific atherosclerotic plaque in the coronary arteries.
4. Severe calcific atherosclerotic plaque in the thoracic aorta.
5. Moderate calcification in the aortic valve.
6. Endotracheal and nasogastric tubes in place.
7. 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
ABDOMEN and PELVIS CTA:
1. Severe calcific atherosclerotic plaque in the abdominal aorta.
2. No CTA evidence for abdominal aortic aneurysm or dissection.
3. Severe diffuse hepatic steatosis.
4. Mild chronic bilateral renal disease.
5. Mild perisplenic ascites.
6. Severely enlarged prostate gland.
7. Severe thickening of the urinary bladder wall suggesting chronic outlet obstruction.
8. Moderate diverticulosis in the descending and sigmoid colon.
9. Nasogastric tube and Roberto catheter in place.
cEEG: Severely abnormal EEG for age in wakefulness through drowsiness due to isoelectric burst suppression activity lack of unresponsiveness. This study was suggestive of severe bihemispheric suppression of activity.
Acute cardiac Arrest/Acute hypoxemic and hypercapnic respiratory failure:
-Patient with PEA arrest s/p CPR x 30 min and 4 rounds of EPI with ROSC. Unresponsive afterwards. Arrived intubated in ED. ECG on admission without acute ischemia. Trop 0.19 (peaked at 39.9). No evidence of PE. Possible multifocal pneumonia
with hypoxia as cause of arrest versus pulmonary edema. No evidence of diffuse total body volume overload.
-Acute hypoxemic and hypercapnic respiratory failure due to PEA arrest, possible multifocal pneumonia (possibly due to aspiration), possible heart failure due to cardiac arrest/pulm edema, possible type I vs type II DC.
-cont Zosyn/Vanco
-cont Epi/Levophed for MAP > 65
-Targeted temperature management
-cont Propofol/fentanyl
-currently on heparin gtt
-cards/neuro/office specialist following, case discussed with Dr. Saldaña
-check echo
-Lactic acidosis (acute metabolic acidosis), resolved with IVFs
-Also acute respiratory acidosis
-Lasix trialed in the ED with about 200 cc of urine output
-s/p IVFs with HCO3-
Hyperglycemia:
-was on ninsulin infusion, now off
-accuchecks
Seizure d/o:
-h/o seizures 6 months ago. Unclear if from withdrawal or secondary to CVA. On keppra at home.
-Appeared to have been having possible status epilepticus in ED
-pt loaded with 3g Keppra on admission
-EEG on 09/16/23 with burst suppression concerning for seizure activity so versed gtt was started 09/16/23
-cont Keppra/Vimpat
-cont cEEG
-cont propofol
-check CT brain 09/18/23
Hypomagnesemia, resolved
Hyponatremia, worsening: Check serum/urine osm, Zain
Hypokalemia, resolved
Lovenox for DVT proph
Code Status: The admitting physician had an extensive discussion with family on admission. Poor prognosis. Patient is Limited DNR at this time. Intubation/pressors are OK. No CPR/defib.
Case discussed with daughter at bedside
Total critical care time spent = 42 min.
Anticipated Discharge: > 48 hours
Subjective/Interval History
-
Date of Service: September 17, 2023
Intubated/sedated
Objective Data
-
Labs:
Laboratory Results
09/17/23 09/17/23 09/17/23
00:31 05:10 08:50
WBC 14.3 H Pending
Hgb 12.0 L Pending
Hct 32.6 L Pending
Plt Count 153 Pending
PT 16.5 H
INR 1.35
APTT > 200 H* 175.6 H*
HCO3 18.6 L
Sodium 128 L 126 L Pending
Potassium 4.3 D 4.5 Pending
Chloride 99 100 Pending
Carbon Dioxide 19 L 19 L Pending
BUN 23 H 22 H Pending
Creatinine 0.8 0.9 Pending
Glucose 117 H 132 H Pending
Calcium 7.7 L 7.4 L Pending
Total Bilirubin 0.7 Pending
AST 286 H Pending
ALT 61 H Pending
Alkaline Phosphatase 65 Pending
09/17/23 09/17/23 09/17/23
13:00 17:00 21:00
WBC Pending Pending Pending
Hgb Pending Pending Pending
Hct Pending Pending Pending
Plt Count Pending Pending Pending
PT
INR
APTT Pending
HCO3
Sodium Pending Pending Pending
Potassium Pending Pending Pending
Chloride Pending Pending Pending
Carbon Dioxide Pending Pending Pending
BUN Pending Pending Pending
Creatinine Pending Pending Pending
Glucose Pending Pending Pending
Calcium Pending Pending Pending
Total Bilirubin Pending Pending Pending
AST Pending Pending Pending
ALT Pending Pending Pending
Alkaline Phosphatase Pending Pending Pending
Vital Signs:
Vital Signs
Temp Pulse Resp BP Pulse Ox
93.8 F L 51 16 90/53 100
09/17/23 07:40 09/17/23 05:30 09/17/23 05:30 09/17/23 05:00 09/17/23 07:42
I&O
09/16/23 09/17/23 09/18/23
06:59 06:59 06:59
Intake Total 483.3 / 598.4 4759.5 / 4914.6 155.1 / 155.1
Output Total 660 / 810 1979
Balance -176.7 / -211.6 2779.5 / 2914.6 135.1 / 135.1
[2023-09-17 09:19] LABS: Lactic Acid 1.5 mmol/L (0.7-2.0)
--- NOTE | 2023-09-17 09:28 | PTCARENOTE ---
Pt having bedside echo
[2023-09-17 09:45] LABS: ALT (SGPT) 53 U/L (0-50); AST (SGOT) 220 U/L (17-59); Albumin 2.5 g/dl (3.5-5.0); Alkaline Phosphatase 65 U/L (38-126); Blood Urea Nitrogen 22 mg/dl (9-20); Calcium 7.3 mg/dl (8.4-10.2); Carbon Dioxide 19 mmol/L (22-30); Chloride 98 mmol/L (98-107); Estimated Creatinine Clearance 63 ml/min; Glucose 147 mg/dl (70-99); Magnesium 1.9 mg/dl (1.6-2.3); Phosphorus 3.6 mg/dl (2.5-4.5); Potassium 4.7 mmol/L (3.5-5.1); Sodium 126 mmol/L (135-145); Total Bilirubin 0.7 mg/dl (0.2-1.3); Total Protein 4.9 g/dl (6.3-8.2); eGFR > 60.00
[2023-09-17] MEDS: LEVOPHED 250 IV ×4 (09:47→21:57)
--- NOTE | 2023-09-17 09:55 | CARDSERVLU ---
Echocardiogram with Lumason completed after protocol screening completed. Allergies verified.
Patent IV site: left AC
IV site flushed with 0.9% NaCl pre and post administration.
Diluted bolus method utilized to enhance visualization of ventricular ortiz.
Total volume given: _2.0_ mL
Patient tolerated all procedures well without complications.
[2023-09-17 11:09] LABS: Osmolality Urine 458 mOsm/kg (300-900)
--- NOTE | 2023-09-17 11:16 | PTCARENOTE ---
was here to anoint patient
[2023-09-17 11:19] LABS: Urine Sodium 21 mmol/L (30-90)
--- NOTE | 2023-09-17 11:34 | W.PN.CARDCBS ---
Today's Communication / Plan
-
Continue IV heparin for now until we know the status of neurologic recovery
Continue rewarming phase
Continue IV heparin
Check echo
Consider ischemic evaluation if there is neurologic recovery but this may not be realistic given severe acidosis on admission
Impression / Plan
-
Razor Grinder: Vic
PMHx:
PEA arrest, out of hospital
Troponin elevation
CVA
HTN
HLD
Seizure disorder
Alcohol dependence
Plan:
Remains unresponsive but warming protocol and chest
Troponin of 40 and left bundle branch block noted on ECG during admission
Cannot exclude CAD as the cause of the arrest
However patient did have malaise and fatigue prior to suffering arrest
Will continue IV heparin
Consider ischemic eval if neurologic recovery occurs but given severe acidosis on admission that may be less likely
Check echocardiogram with ejection fraction could be reduced due to severe acidosis
Discussed with family at bedside
Progress Note - Razor Grinder
Subjective
Date of Service: September 17, 2023
Patient unresponsive
Objective
Labs:
Labs
Hgb 10.9 g/dL (13.0-18.0) L 09/17/23 08:50
Hct 29.2 % (39.0-52.0) L 09/17/23 08:50
Plt Count 153 10^3/uL (130-400) 09/17/23 08:50
PT 16.5 Sec (11.4-14.6) H 09/17/23 00:31
INR 1.35 09/17/23 00:31
APTT 175.6 Sec (23.4-35.0) H* 09/17/23 05:10
Sodium 126 mmol/L (135-145) L 09/17/23 08:50
Potassium 4.7 mmol/L (3.5-5.1) 09/17/23 08:50
BUN 22 mg/dl (9-20) H 09/17/23 08:50
Creatinine 0.9 mg/dL (0.7-1.3) 09/17/23 08:50
Glucose 147 mg/dl (70-99) H 09/17/23 08:50
Troponins
09/15/23 09/16/23 09/16/23
20:23 01:14 05:55
Troponin I 0.198 H* 18.100 H* D 39.900 H* D
09/16/23 09/16/23 09/17/23
12:03 17:45 00:31
Troponin I 39.300 H* 32.900 H* 26.100 H*
Vital Signs and I&O:
Vital Signs
Temp Pulse Resp BP Pulse Ox
96 F L 62 16 101/47 100
09/17/23 11:00 09/17/23 11:00 09/17/23 11:00 09/17/23 11:00 09/17/23 10:30
Vital Signs
Temp Pulse Resp BP Pulse Ox
96 F L 62 16 101/47 100
09/17/23 11:00 09/17/23 11:00 09/17/23 11:00 09/17/23 11:00 09/17/23 10:30
Intake & Output
09/15/23 09/16/23 09/17/23 09/18/23
06:59 06:59 06:59 06:59
Intake Total 483.3 / 598.4 4759.5 / 4914.6 1023.0 / 1023.0
Output Total 660 / 810 1979 105 / 105
Balance -176.7 / -211.6 2779.5 / 2914.6 918.0 / 918.0
Physical Exam
Physical Exam
General: Unresponsive
Neck: Supple, no JVD, HJR, carotids +2 B/L, no bruits bilaterally.
Heart: Non displaced PMI, RRR, no murmurs, No S3, S4, no rubs.
Lungs: Scattered rhonchi
Extremities: No clubbing, cyanosis or edema bilaterally.
Neuro: Unresponsive
[2023-09-17 11:42] LABS: Osmolality Serum 274 mOsm/kg (275-300)
--- NOTE | 2023-09-17 11:59 | W.PN.GI.CBS2 ---
Today's Communication / Plan
-
-Coffee-ground emesis-rule out esophagitis, gastritis, ulcer disease
No further GI bleeding.
With alcohol abuse, will need to also consider liver disease. Abdominal imaging did not show any evidence of cirrhosis but diffuse fatty liver noted.
Continue Protonix 40 mg IV twice daily. Patient on multiple drips and had to stop, history of and this time.
Monitor H&H and transfuse as needed.
No plans for urgent upper endoscopy at this time unless overt active bleeding.
-Continue to follow LFTs
Expect significant elevation in transaminases, especially if there is component of shock liver with out of hospital cardiac arrest history
No further GI recommendations, will sign off, please call back if needed.
Assessment / Plan
-
78-year-old male with history of alcohol abuse, hypertension, CVA, seizure disorder who was brought in without of hospital cardiac arrest, noted to have coffee-ground emesis in the orogastric tube and GI consult called in.
-Coffee-ground emesis-rule out esophagitis, gastritis, ulcer disease
No further GI bleeding.
With alcohol abuse, will need to also consider liver disease. Abdominal imaging did not show any evidence of cirrhosis but diffuse fatty liver noted.
Continue Protonix 40 mg IV twice daily. Patient on multiple drips and had to stop, history of and this time.
Monitor H&H and transfuse as needed.
No plans for urgent upper endoscopy at this time unless overt active bleeding.
-Continue to follow LFTs
Expect significant elevation in transaminases, especially if there is component of shock liver with out of hospital cardiac arrest history
No further GI recommendations, will sign off, please call back if needed.
Subjective
Subjective
Date of Service: September 17, 2023
Patient still intubated, on pressors in the ICU. Rectal bag with brownish stool
Objective
Data Reviewed
Laboratory Data:
Laboratory Results
PT 16.5 Sec (11.4-14.6) H 09/17/23 00:31
INR 1.35 09/17/23 00:31
APTT 175.6 Sec (23.4-35.0) H* 09/17/23 05:10
Phosphorus 3.6 mg/dl (2.5-4.5) 09/17/23 08:50
Magnesium 1.9 mg/dl (1.6-2.3) 09/17/23 08:50
Total Bilirubin 0.7 mg/dl (0.2-1.3) 09/17/23 08:50
AST 220 U/L (17-59) H 09/17/23 08:50
ALT 53 U/L (0-50) H 09/17/23 08:50
Alkaline Phosphatase 65 U/L (38-126) 09/17/23 08:50
Vital Signs and I&O:
Vital Signs
Temp Pulse Resp BP Pulse Ox
96 F L 62 16 101/47 98
09/17/23 11:00 09/17/23 11:00 09/17/23 11:00 09/17/23 11:00 09/17/23 11:47
I&O
09/16/23 09/17/23 09/18/23
06:59 06:59 06:59
Intake Total 483.3 / 598.4 4759.5 / 4914.6 1023.0 / 1023.0
Output Total 660 / 810 1979 105 / 105
Balance -176.7 / -211.6 2779.5 / 2914.6 918.0 / 918.0
Physical Exam
Physical Exam
GI: Soft and Non Distended
--- NOTE | 2023-09-17 12:15 | PTCARENOTE ---
Systems reviewed. Only change noted is some intermittent twitching around mouth/chin. Pupils remain nonreactive. No cough/gag. Does not withdrawal to painful stimuli all extremities. Per Dr Saldaña plan at present is to stop versed when drip
completed. Pt continues with rewarming. Maintained on levo and vaso gtts as charted, ivf as ordered, fent, prop and versed as well as heparin gtt per cardiology. Otherwise please refer to worklist.
[2023-09-17 12:22] LABS: Glucose - Point of Care 173 mg/dl (70-99)
[2023-09-17 12:55] LABS: APTT 80.3 Sec (23.4-35.0)
[2023-09-17 13:04] LABS: Lactic Acid 1.5 mmol/L (0.7-2.0)
--- NOTE | 2023-09-17 13:11 | W.PN.INTV ---
Today's Communication / Plan
Recommendations
Continue mechanical ventilation without change
Wean down sedation as able as patient is rewarmed
Continue antibiotics
Vancomycin discontinued
Echocardiogram
N.p.o. for now
Heparin drip, follow PTT
Assessment
-
Assessment: 78-year-old male with a past medical history of below who presents with tmj-ej-riynrhed cardiac arrest. Patient lives at [facility]. His son picked him up yesterday and he was with the rest of his family members for several
hours. Per the son, the patient was not acting himself as he was complaining of abdominal pain and was having generalized weakness. The patient is an alcoholic drinking 12 bottles of wine a week and he does drink alcohol daily. The patient
developed sudden shortness of breath yesterday and there was audible gurgling, as per son. Patient was driven back to [facility] with 911 called once they arrived. When EMS arrived patient endorsed abdominal pain, appeared pale and
then while being brought into the ambulance he suffered a cardiac arrest. Per EMS, it was PEA and then asystole. Patient given 4 rounds of epinephrine en route to the hospital and was intubated in the field with Edward CPR being performed on the
chest. ROSC obtained after approximately 30 minutes. Initial labs showed Hb 12.6, metabolic and respiratory acidosis with serum bicarbonate level of 8, pCO2 42, pH 7.25, glucose 285, lactic acid 13.2, troponin initially 0.198 and this raj to 18.1
on the next blood draw, proBNP 17,900, procalcitonin 6.78, and COVID antigen negative. Initial CT head showed no acute intracranial hemorrhage or transcortical infarct. Initial CXR showed bibasilar patchy opacities + concerns for acute
interstitial pulmonary edema. Given that the patient was not following commands or awakening, therapeutic hypothermia was initiated and patient was transferred to the ICU for further care. Critical care services now consulted for additional
management/recommendations.
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
Impression:
#Out of hospital cardiac arrest - reported to be PEA and then became asystole with ROSC after ~ 30 mins s/p 4 pushes of epi
#Aspiration pneumonia involving bilateral lungs
#Acute respiratory failure with hypoxia + hypercapnia now on mechanical ventilation
#Elevated troponin with abnormal EKG due to suspected NSTEMI - ST elevations in aVR, V1-[address] depressions, concerning for ischemia especially with new LBBB
#Acute HFpEF exacerbation with small bilateral pleural effusions and pulmonary vascular congestion in the setting of suspected NSTEMI as above
#Anemia
#Non-anion gap metabolic acidosis + respiratory acidosis
#Hyponatremia
#Hyperglycemia on insulin gtt
#Lactic acidosis
#Alcohol use disorder
#Former tobacco use disorder
#Epilepsy on Keppra
Plan:
Remains critically ill: On targeted temperature management protocol. On vasopressors.
Currently in rewarming phase
Continue to monitor electrolytes per protocol.
- Patient reached target hypothermic temperature overnight at around 2:45 AM and will started(09/16) at around 2:45 AM
-Will continue to decrease sedation as able.
Mechanical ventilation settings reviewed, continue without change. ABG showed adequate oxygenation on ventilation.
Respiratory mechanics acceptable.
- Maintain SpO2 >94% by adjusting FiO2 + PEEP
- Maintain plateau pressure <30
- Continue vasopressors with goal MAP >65
- Patient having ventricular ectopy, and this could very well be due to epinephrine gtt (which was started due to bradycardia in the ER) -->
Continue vasopressin and norepinephrine
Epinephrine has been weaned off
No further arrhythmias at this point.
Possible aspiration event:
- Continue broad-spectrum antibiotics with Zosyn
Vancomycin discontinued. MRSA screening negative.
Chest x-ray reviewed with possible right lower lobe infiltrate. Suspect aspiration.
- Plan for 7 days of ABx, depending on cultures.
- The patient is having jerking movements and this is suspicious for myoclonic jerks versus seizures �
On antiseizure medications per neurology
Continue with EEG monitoring
Discussed with neurology earlier today. For prognostic indicators noted.
Will need to monitor for alcohol withdrawal if the patient drinks significant amount of alcohol daily.
- Thiamine, folate and MVN
Possible acute coronary syndrome:
Troponin peaked at 36 now trending lower.
Echocardiogram today.
Heparin drip per cardiology.
If survives then ischemic workup.
-
- Maintain euglycemia with goal BG 140-180
- Continue insulin gtt as per hypothermia protocol
- Once ready to wean off insulin gtt, would bridge x 2 hours with lantus, giving a dose equaling ~25-30% of preceding 24 hour total daily requirement of insulin in units
-
- DVT ppx - heparin gtt being started as per cardiology, follow PTT.
Lines:
Right femoral CVC
Roberto catheter
Right radial arterial catheter
ETT
OGT
Dr. Childers discussed with neurology and primary team.
Dr. Childers also updated family 09/17/2023. Daughter states that if patient has poor prognostic indicators and after rewarming there is no signs of meaningful neurological recovery likely will withdraw care at some point.
Critical care statement: A total of 41 minutes of critical care time was provided for this patient today. This includes management of unstable vital signs, evaluation of the patient at bedside, reviewing the patient's pertinent medical records
including radiographs, microbiology, laboratory evaluations, and discussion with primary team, consultants, pharmacy, nutrition, physical therapy, case management, charge nurse, critical care nursing, and respiratory therapy.
Data:
Head CT 09-15-2023:
1. No CT evidence for acute intracranial hemorrhage or transcortical infarct.
2. Severe white matter leukoaraiosis in the frontal and parietal lobes which appears unchanged.
3. Moderate diffuse cerebral and cerebellar volume loss.
4. 3.8 cm arachnoid cyst in the right side of the posterior fossa which appears unchanged.
5. Endotracheal tube in place with a moderate amount of layering fluid in the posterior nasopharynx.
CXR 09-16-2023:
1. MODERATE ACUTE INTERSTITIAL and ALVEOLAR CARDIOGENIC PULMONARY EDEMA which is not definitively changed.
2. Mild cardiomegaly.
3. Endotracheal and nasogastric tubes remaining in place.
Subjective Dataa
Subjective Data
Date of Service:
Date of Service: September 17, 2023
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
Subjective:
Sedated, mechanical ventilation. Unresponsive.
On multiple vasopressors, critically ill.
Review of Systems
General: Unobtainable - Pat Unresp
Objective Data
Data Reviewed
Vital Signs / I&O / Oxygen:
Vital Signs
Temp Pulse Resp BP Pulse Ox
97.3 F 65 16 113/48 99
09/17/23 13:00 09/17/23 13:00 09/17/23 13:00 09/17/23 12:00 09/17/23 12:47
Intake and Output
09/16/23 09/17/23 09/18/23
06:59 06:59 06:59
Intake Total 483.3 / 598.4 4759.5 / 4914.6 1460.7 / 1460.7
Output Total 660 / 810 1979 / 1999 595 / 595
Balance -176.7 / -211.6 2779.5 / 2914.6 865.7 / 865.7
SaO2 [A/C] 100
SaO2 99
Physical Exam
General: Comfortable
HEENT: Other (ET tube in place without secretion)
Cardiovascular: S1-S2
Respiratory: Clear and Non-Labored Respirations
GI: Soft and Non Distended
Neurology: Other (Sedated/on mechanical ventilation)
Skin: Warm
Labs/Micro/Reports
Laboratory Results
09/16/23 09/16/23 09/17/23
17:45 19:56 00:31
PT 16.5 H
INR 1.35
APTT > 200 H* > 200 H*
pH 7.40
pCO2 38
pO2 120 H
HCO3 23.5
O2 Delivery Level %oxygen/room air 40%
09/17/23 09/17/23
05:10 12:31
PT
INR
APTT 175.6 H* 80.3 H
pH 7.40
pCO2 30 L
pO2 186 H
HCO3 18.6 L
O2 Delivery Level
Microbiology
09/16/23 12:03 Blood/Venous Blood Culture - Preliminary
No Growth in 24 hours- Final report to follow
09/16/23 14:19 Urine Urine Culture - Final
NO GROWTH
09/16/23 14:19 Endotracheal Respiratory Culture - Preliminary
09/16/23 14:19 Endotracheal Gram Stain - Preliminary
09/16/23 14:19 Nose Nasal Screen MRSA (PCR) - Final
MRSA not detected - performed by PCR methodology.
09/16/23 12:03 Urine Legionella Urinary Antigen - Final
Negative for Legionella pneumophila Serogroup 1 antigen.
A negative result does not rule out the possiblity of
Legionella infection due to other serogroups or species of
Legionella. Clinical correlation is recommended.
09/16/23 12:03 Urine Streptococcus pneumoniae Antigen (M - Final
Negative for Streptococcus pneumoniae antigen.
A negative result does not exclude infection with
Streptococcus pneumoniae. Clinical correlation is
recommended.
09/15/23 23:12 Nasal Swab Influenza Types A & B (NAOMI) - Final
Negative for Influenza A & B, NAAT
Negative results must be combined with clinical observations
and patient history.
Nucleic Acid Amplification test (NAAT)performed on the
[employer] platform.
--- NOTE | 2023-09-17 13:13 | PTCARENOTE ---
PTT 80.3. No changes to drip and repeat ptt ordered in 6 hours per protocol
[2023-09-17 13:26] LABS: ALT (SGPT) 49 U/L (0-50); AST (SGOT) 204 U/L (17-59); Albumin 2.6 g/dl (3.5-5.0); Alkaline Phosphatase 67 U/L (38-126); Blood Urea Nitrogen 21 mg/dl (9-20); Carbon Dioxide 19 mmol/L (22-30); Chloride 97 mmol/L (98-107); Estimated Creatinine Clearance 63 ml/min; Glucose 167 mg/dl (70-99); Magnesium 1.8 mg/dl (1.6-2.3); Phosphorus 3.8 mg/dl (2.5-4.5); Potassium 4.8 mmol/L (3.5-5.1); Sodium 126 mmol/L (135-145); Total Bilirubin 0.6 mg/dl (0.2-1.3); Total Protein 4.9 g/dl (6.3-8.2); eGFR > 60.00
[2023-09-17 13:39] LABS: Hematocrit 29.6 % (39.0-52.0); Hemoglobin 10.8 g/dL (13.0-18.0); Mean Corp Hgb Conc. 36.5 g/dL (33.0-37.0); Mean Corpuscular Hgb 34.1 pg (27.0-31.0); Mean Corpuscular Volume 93.4 fL (80.0-94.0); Platelet Count 149 10^3/uL (130-400); Red Blood Cell Count 3.17 10^6/uL (4.70-6.10); Red Cell Dist. Width 11.7 % (11.5-14.5); White Blood Cell Count 16.5 10^3/uL (4.8-10.8)
--- NOTE | 2023-09-17 14:00 | PTCARENOTE ---
Pt reached normothermia about 1345.
--- NOTE | 2023-09-17 14:45 | PTCARENOTE ---
Isabel text by Dr Saldaña to stop versed drip. Pharmacy aware. Discussion to decrease rate of propofol to 20m/k/h and leave fentanyl gtt at current dose and continue eeg. Son at bedside and updated.
--- NOTE | 2023-09-17 15:58 | CM ---
CM reviewed chart
Pt in ICU on vent support
Pt from [facility] [place] and will need PT/OT once appropriate to determine dc needs
Discharge Disposition- TBD, home with services vs SNF
--- NOTE | 2023-09-17 16:52 | PTCARENOTE ---
Systems reviewed. Versed has been stopped and propofol decreased to 20 m/k/m per Dr Saldaña as charted. Pt seen with increased facial twitching Mostly l sided, hiccups? and r foot flexing. Dr Saldaña aware, reviewed eeg and reports enough
suppression between bursts. We will keep sedation where it is currently. CT in am, remove from eeg prior to ct scan. Spoke to ct scan and made them aware. Resp also aware of plan for am.
[2023-09-17] MEDS: LIPITOR 80 MG TUBE (17:31)
[2023-09-17 18:41] LABS: Glucose - Point of Care 154 mg/dl (70-99)
[2023-09-17 18:44] LABS: APTT 78.9 Sec (23.4-35.0)
[2023-09-17] MEDS: SENNA SYRUP 8.80000000000000071 MG TUBE (19:59)
--- NOTE | 2023-09-17 20:00 | PTCARENOTE ---
pt chart reviewed, on assessment pt unresponsive, no gag/cough, pupils unreactive, temp 97.6, artic sun remains on per order, scheduled Tylenol, pulses weak, SR/SB, on hep gtt, BP map 60s to 70s, on levo and vaso, lungs course, thick pascual secretions,
NPO - OGT at 58cm at lip, int. suction, rectal trumpet in place, #16 thibodeaux with temp probe, monitored Q1h, repositioned with pillow support, heels elevated. Please refer to worklist for full assessment and Is & Os.
[2023-09-18] VITALS: BP 108/59
--- NOTE | 2023-09-18 00:18 | PTCARENOTE ---
no changes from prior assessment, see worklist, pt continues with facial twitching, repositioned Q2h
[2023-09-18] MEDS: HEPARIN 25000 UNITS/250 ML IV (02:00)
[2023-09-18] MEDS: SUBLIMAZE 100 IV (02:03)
[2023-09-18 04:00] VITALS: BP 96/55
--- NOTE | 2023-09-18 04:00 | PTCARENOTE ---
pt on assessment noted to have slight R + corneal. GOL at bedside to assess pt, betsey care and partial bath given, repositioned Q2h, continue with levo and vaso, BP map in the 60s-low 70s, afebrile.
[2023-09-18 04:15] LABS: Hematocrit 26.8 % (39.0-52.0); Hemoglobin 9.7 g/dL (13.0-18.0); Mean Corp Hgb Conc. 36.2 g/dL (33.0-37.0); Mean Corpuscular Hgb 34.4 pg (27.0-31.0); Mean Platelet Volume 10.1 fL (7.4-10.4); Platelet Count 123 10^3/uL (130-400); Red Blood Cell Count 2.82 10^6/uL (4.70-6.10); Red Cell Dist. Width 11.9 % (11.5-14.5); White Blood Cell Count 17.2 10^3/uL (4.8-10.8)
[2023-09-18 04:16] LABS: B.E. -5.3 mmol/L; HCO3 18.8 mmol/L (21-28); Ionized Calcium 0.98 mMOL/L (1.15-1.33); O2 Saturation % 99.2 % (94-98); PCO2 31 mmHg (35-48); PO2 90 mmHg (83-108); Potassium 4.6 mMOL/L (3.5-5.1); Sodium 124 mMOL/L (136-145); pH 7.39 (7.35-7.45)
[2023-09-18] MEDS: LEVOPHED 250 IV ×2 (04:20→10:55)
[2023-09-18] MEDS: VIMPAT 100 MG IV ×2 (04:20→10:31)
[2023-09-18] MEDS: ZOSYN 50 IV ×4 (04:21→21:52)
[2023-09-18] MEDS: TYLENOL ORAL SOLUTION 650 MG TUBE ×4 (04:22→23:59)
[2023-09-18 04:26] LABS: INR 1.34; PT 16.4 Sec (11.4-14.6)
[2023-09-18 04:28] LABS: APTT 77.1 Sec (23.4-35.0)
[2023-09-18 05:08] LABS: Blood Urea Nitrogen 21 mg/dl (9-20); Carbon Dioxide 19 mmol/L (22-30); Chloride 98 mmol/L (98-107); Estimated Creatinine Clearance 57 ml/min; Glucose 142 mg/dl (70-99); Potassium 4.4 mmol/L (3.5-5.1); Sodium 125 mmol/L (135-145); Triglycerides 87 mg/dl (10-149); eGFR > 60.00
[2023-09-18] MEDS: DIPRIVAN 100 IV ×2 (05:11→14:58)
[2023-09-18 05:26] VITALS: BMI 28.8
[2023-09-18] MEDS: CALCIUM GLUCONATE 130 MG IV (06:19)
[2023-09-18] MEDS: ASPIRIN 300 MG RECTAL (07:22)
[2023-09-18] MEDS: KEPPRA 1000 MG IV (07:22)
[2023-09-18] MEDS: NSS (PRESERVATIVE FREE) 10 ML IV ×2 (07:23→20:14)
[2023-09-18] MEDS: REFRESH CELLUVISC GEL 1 DROPS OPHTH ×2 (07:23→20:15)
[2023-09-18] MEDS: THIAMINE INJECTION 100 MG IV (07:23)
[2023-09-18] MEDS: PROTONIX IV 40 MG IV ×2 (07:23→20:13)
[2023-09-18] MEDS: SENNA SYRUP 8.80000000000000071 MG TUBE ×2 (07:23→20:13)
--- NOTE | 2023-09-18 07:33 | EEGC.RPT ---
Addendum entered and electronically signed by Damián Saldaña MD 09/18/23 11:36:
Study read until 0726 AM on 09/17. Near end of study suppression periods are more brief of 1-2 seconds, bursts appear similar and are generalized.
Original Note:
Continuous EEG Report
Recording
Start Date of Data Reviewed: 09/17/23
Start Time of Data Reviewed: 07:00
End Date of Data Reviewed: 09/18/23
End Time of Data Reviewed: 07:00
Type of EEG: Continuous
Study Sequence: Continuation of ongoing Study
Report
24 HOUR CONTINUOUS EEG REPORT
24 HOUR CONTINUOUS EEG INTERPRETATION:
Severely abnormal EEG showing burst suppression pattern.
CLINICAL CORRELATION:
This study was suggestive of severe bihemispheric dysfunction, in context of anoxic brain injury is considered a malignant EEG pattern.
Clinical correlation is advised.
METHODS:
A 21 channel digitized electroencephalogram (EEG) was performed at the bedside in the intensive care unit. The 10/20 international system of electrode placement was used. ECG was monitored. Persyst quantitative analysis was performed.
ELECTROENCEPHALOGRAPHER IMPRESSION(S):
Quality
Good
Background
Maximum: Delta, poorly organized
Amplitude: Medium
Anterior-posterior gradient: Absent
No background asymmetry
Photic stimulation
Failed to produce activation of the record
Sleep
Not demonstrated
Abnormal EEG activity
Suppressions lasting for approximately 5-10 seconds were interrupted by bursts high amplitude epileptiform delta activity lasting for approximately 1-2 seconds.
Electrocardiogram
Sinus rhythm
[2023-09-18 08:00] VITALS: BP 114/68
--- NOTE | 2023-09-18 08:31 | W.PN.HOSP.TC ---
Today's Communication/Plan
-
see bold
Assessment / Plan
Assessment / Plan
Gen: NAD, NCAT
CV: continues to remain RRR, +S1/S2, no m/r/g.
Resp: remains CTAB anteriorly, no rales, wheezes, or rhonchi.
Abd: remains +BS/soft/ND
Skin: No rashes. No lower ext edema
Neuro: sedated
CXR:
1. MODERATE ACUTE INTERSTITIAL and ALVEOLAR CARDIOGENIC PULMONARY EDEMA which is not definitively changed.
2. Mild cardiomegaly.
3. Endotracheal and nasogastric tubes remaining in place.
CT brain:
1. No CT evidence for acute intracranial hemorrhage or transcortical infarct.
2. Severe white matter leukoaraiosis in the frontal and parietal lobes which appears unchanged.
3. Moderate diffuse cerebral and cerebellar volume loss.
4. 3.8 cm arachnoid cyst in the right side of the posterior fossa which appears unchanged.
5. Endotracheal tube in place with a moderate amount of layering fluid in the posterior nasopharynx.
CTA C/A/P:
CHEST CTA:
1. Large amount of symmetric bilateral airspace consolidation in the lower lobes and moderate centrilobular ground-glass opacity in the upper lobes which is most consistent with SEVERE ACUTE ALVEOLAR PULMONARY EDEMA given the history of cardiac
arrest. SEVERE BILATERAL PNEUMONIA (possibly aspiration pneumonia) is an alternative diagnostic possibility.
2. Small bilateral pleural effusions.
3. Severe calcific atherosclerotic plaque in the coronary arteries.
4. Severe calcific atherosclerotic plaque in the thoracic aorta.
5. Moderate calcification in the aortic valve.
6. Endotracheal and nasogastric tubes in place.
7. 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
ABDOMEN and PELVIS CTA:
1. Severe calcific atherosclerotic plaque in the abdominal aorta.
2. No CTA evidence for abdominal aortic aneurysm or dissection.
3. Severe diffuse hepatic steatosis.
4. Mild chronic bilateral renal disease.
5. Mild perisplenic ascites.
6. Severely enlarged prostate gland.
7. Severe thickening of the urinary bladder wall suggesting chronic outlet obstruction.
8. Moderate diverticulosis in the descending and sigmoid colon.
9. Nasogastric tube and Roberto catheter in place.
cEEG:
09/17/23: Severely abnormal EEG for age in wakefulness through drowsiness due to isoelectric burst suppression activity lack of unresponsiveness. This study was suggestive of severe bihemispheric suppression of activity.
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
Echo: EF 15%, G3DD, mod-sev , global hypokinesis with mid anteroseptal, mid septal, mid anterior, mid lateral, and apical akinesis.
Acute cardiac Arrest/Acute hypoxemic and hypercapnic respiratory failure:
-Patient with PEA arrest s/p CPR x 30 min and 4 rounds of EPI with ROSC. Unresponsive afterwards. Arrived intubated in ED. ECG on admission without acute ischemia. Trop 0.19 (peaked at 39.9). No evidence of PE. Possible multifocal pneumonia
with hypoxia as cause of arrest versus pulmonary edema. No evidence of diffuse total body volume overload.
-Acute hypoxemic and hypercapnic respiratory failure due to PEA arrest, possible multifocal pneumonia (possibly due to aspiration), possible heart failure due to cardiac arrest/pulm edema, possible type I vs type II NC.
-cont Zosyn/Vanco
-cont Epi/Levophed for MAP > 65
-Targeted temperature management
-cont Propofol/fentanyl
-currently on heparin gtt
-cards/neuro/containers sales representative following, case discussed with Dr. Saldaña
-check echo
-Lactic acidosis (acute metabolic acidosis), resolved with IVFs
-Also acute respiratory acidosis
-Lasix trialed in the ED with about 200 cc of urine output
-s/p IVFs with HCO3-
Hyperglycemia:
-was on insulin infusion, now off
-accuchecks
Seizure d/o:
-h/o seizures 6 months ago. Unclear if from withdrawal or secondary to CVA. On keppra at home.
-Appeared to have been having possible status epilepticus in ED
-pt loaded with 3g Keppra on admission
-EEG on 09/16/23 with burst suppression concerning for seizure activity so versed gtt was started 09/16/23, stopped 09/17/23
-cont Keppra/Vimpat
-cont cEEG
-cont propofol
-check CT brain 09/18/23
Hypomagnesemia, resolved
Hypotonic Hyponatremia, worsening: Likely SIADH. Will c/s renal. Likely needs diuresis.
Hypokalemia, resolved
Lovenox for DVT proph
Code Status: The admitting physician had an extensive discussion with family on admission. Poor prognosis. Patient is Limited DNR at this time. Intubation/pressors are OK. No CPR/defib.
Total critical care time spent = 32 min.
Anticipated Discharge: > 48 hours
Subjective/Interval History
-
Date of Service: September 18, 2023
Intubated/sedated.
Objective Data
-
Labs:
Laboratory Results
09/18/23
04:08
WBC 17.2 H
Hgb 9.7 L
Hct 26.8 L
Plt Count 123 L
PT 16.4 H
INR 1.34
APTT 77.1 H
HCO3 18.8 L
Sodium 125 L
Potassium 4.4
Chloride 98
Carbon Dioxide 19 L
BUN 21 H
Creatinine 1.0
Glucose 142 H
Calcium 7.0 L
Vital Signs:
Vital Signs
Temp Pulse Resp BP Pulse Ox
97.8 F 65 0 96/55 100
09/18/23 07:49 09/18/23 06:30 09/18/23 06:30 09/18/23 04:00 09/18/23 06:30
I&O
09/17/23 09/18/23 09/19/23
06:59 06:59 06:59
Intake Total 4759.5 / 4914.6 4269.8 / 4269.8
Output Total 1979 1635 / 1635
Balance 2779.5 / 2914.6 2634.8 / 2634.8
[2023-09-18] MEDS: PITRESSIN 100 IV ×2 (09:14→20:15)
--- NOTE | 2023-09-18 09:18 | W.CON.NEPH ---
Consultation
-
Date/Time Consultation Requested: 09/18/2023 9:15 AM
Date/Time Consultation Performed: 09/18/2023 9:15 AM
Requesting Provider: Dr. Mello
Performing Provider: Dr. Nobles
Reason for Consultation: Hyponatremia
Medical History
-
Chief Complaint: Hyponatremia
History of Present Illness:
The patient is a 78-year-old male with a past medical history of seizure disorder chronically maintained on Keppra. He is maintained on propranolol and lisinopril for hypertension. He has a history of alcohol dependence with recent seizure
disorder approximately 6 months ago in the setting of a possible CVA for which she is now also maintained on Plavix. The patient was admitted to the hospital on September 15, 2023 after suffering cardiac arrest. When he was in the emergency room
department he required multiple pressors in the setting of his hemodynamic instability following his cardiac arrest. Follow-up echo on 09/17/2023 notes severely reduced left ventricular systolic function with EF of 15%. Further complications have
been noted during his ICU course to include coffee-ground emesis, aspiration pneumonia, acute respiratory failure requiring mechanical ventilation, suspected non-ST elevation PA, and prolonged nonresponsiveness. He has now developed hyponatremia
over the course of his admission with a serum sodium level of 125 and nephrology was asked to see the patient.
Past Medical History
CVA
Alcohol abuse
Seizure disorder
Hyperlipidemia
Hypertension
Social History
Alcohol: Chronic Alcoholic
Family History
Family History: Not Pertinent
Allergies / Home Medications
Allergy/AdvReac Type Severity Reaction Status Date / Time
No Known Allergies Allergy Verified 02/14/23 16:44
�Medication �Instructions �Recorded �Confirmed �Type
Prevagen 1 cap PO DAILY Hormonal Agent 02/14/23 02/14/23 History
acetaminophen 325 mg tablet 325 mg PO DAILYPRN PRN mild pain 02/14/23 02/14/23 History
(Tylenol)
cholecalciferol (vitamin D3) 25 25 mcg PO DAILY Supplement 02/14/23 02/14/23 History
mcg (1,000 unit) tablet (Vitamin
D3)
lisinopril 5 mg tablet 5 mg PO DAILY Blood Pressure 02/14/23 02/14/23 History
propranolol 20 mg tablet 40 mg PO HS Blood Pressure 02/14/23 02/14/23 History
therapeutic multivitamin 1 tab PO DAILY Supplement 02/14/23 02/14/23 History
zinc gluconate 50 mg tablet 50 mg PO DAILY Supplement 02/14/23 02/14/23 History
aspirin 81 mg tablet,delayed 81 mg PO DAILY 30 days #30 tabs 02/15/23 Rx
release
clopidogrel 75 mg tablet 75 mg PO DAILY 20 days #20 tabs 02/15/23 Rx
levetiracetam 500 mg tablet 500 mg PO BID 30 days #60 tabs 02/15/23 Rx
(Keppra)
Review of Systems
-
Unable to obtain full review of systems at this time due to: Acuity and Patient Intubation
Physical Exam
Vital Signs
Vital Signs
Temp Pulse Resp BP Pulse Ox
97.8 F 91 17 114/68 99
09/18/23 07:49 09/18/23 09:00 09/18/23 09:00 09/18/23 08:00 09/18/23 09:00
Lab Results
09/18/23 04:08
09/18/23 04:08
WBC 17.2 10^3/uL (4.8-10.8) H 09/18/23 04:08
RBC 2.82 10^6/uL (4.70-6.10) L 09/18/23 04:08
Hgb 9.7 g/dL (13.0-18.0) L 09/18/23 04:08
Hct 26.8 % (39.0-52.0) L 09/18/23 04:08
Plt Count 123 10^3/uL (130-400) L 09/18/23 04:08
Sodium 125 mmol/L (135-145) L 09/18/23 04:08
Potassium 4.4 mmol/L (3.5-5.1) 09/18/23 04:08
Chloride 98 mmol/L (98-107) 09/18/23 04:08
Carbon Dioxide 19 mmol/L (22-30) L 09/18/23 04:08
BUN 21 mg/dl (9-20) H 09/18/23 04:08
Creatinine 1.0 mg/dL (0.7-1.3) 09/18/23 04:08
eGFR > 60.00 09/18/23 04:08
Glucose 142 mg/dl (70-99) H 09/18/23 04:08
Calcium 7.0 mg/dl (8.4-10.2) L 09/18/23 04:08
Phosphorus Cancelled 09/17/23 21:00
Dnm-Q-Tkaaxmxhfqa Pept 55095 pg/ml 09/16/23 01:14
Albumin Cancelled 09/17/23 21:00
Physical Exam
General: non responsive , intubated
Respiratory: coarse to auscultation bilaterally with normal lung exersion
Cardiac: S1/S2 and Regular Rate/Rhythm
Breast: Deferred by me
Abdomen: Soft, Nontender, Nondistended, Normal Bowel Sounds and No Hepatosplenomegaly
Rectal: Deferred by Provider
Genito-urinary: thibodeaux
Extremities: No Clubbing, No Cyanosis and pitting central edema
Skin: No Rash or open lesions
Neuro: non responsive on sedation
Hematologic/Lymphatic: No Cervical Lymphadenopathy, No Submandibular Lymphadenopathy and No Supraclavicular Lymphadenopathy
Psych: unobtainable
Vascular: plus 1 pedal and radial pulses
Data Reviewed
-
Radiology: Image Personally Visualized and interpreted (Chest x-ray from today bilateral lower opacities) and Report Reviewed by me
CT Scan: Image Personally Visualized and interpreted and Report Reviewed by me (CT of head with no acute finding)
Labs: Labs Reviewed by me (BMP urine osmolality reviewed)
Old Records: Reviewed (Sodium from 02/15/2023 136)
Assessment/Plan
-
Impression:
Hyponatremia
Status post PEA arrest
Prolonged unresponsive event
Metabolic acidosis
Hypercapnic respiratory failure aspiration bilateral pneumonia
Seizure disorder
Hypertension
Peripheral vascular disease
History of CVA
Alcohol abuse
Plan:
Hyponatremia:
-Urine osmolality of 458 consistent with ADH excess likely exacerbated by hypotension in setting of poor cardiac output
-Maintain dual pressor support to keep MAP at 65 or greater
-cannot provide samsca patient with NGT and patient non responsive
-if metabolic acidosis worsens , then will add oral sodium bicarbonate
-Will provide 40 mg of IV Lasix in setting of hypervolemic hyponatremia in setting of cardiogenic shock
-Patient critically ill in setting of vent dependent respiratory failure neurologically poorly responsive and suspected cardiogenic shock
Total Time Spent with Patient (in minutes): 40 minutes critical care time spent with patient
--- NOTE | 2023-09-18 09:20 | W.PN.CARDCBS ---
Today's Communication / Plan
-
Cont ASA/statin
IV heparin gtt x48hrs, will stop tonight
Suspect he will need diuresis, hold off for now while requiring pressor support
Impression / Plan
-
Finger Cobbler: Vic
PMHx:
PEA arrest, out of hospital
Troponin elevation
CVA
HTN
HLD
Seizure disorder
Alcohol dependence
TTE 09/17/23: LVEF 15%, anterior and anteroseptal akinesis from mid portion to apex, mod-severe
Plan:
Remains unresponsive, but sedation is being weaned
Left bundle branch block noted on ECG during admission - now anterior infarct pattern
Troponin peaked at 40
Possible aortic stenosis or ACS was the cause of the arrest
Cont ASA/statin
IV heparin gtt x48hrs, will stop tonight
Eventual BB as hemodynamics allow
Suspect he will need lasix, hold off for now while requiring pressor support
Consider ischemic eval if neurologic recovery occurs but given severe acidosis on admission that may be less likely
Discussed with nursing
Progress Note - Finger Cobbler
Subjective
Date of Service: September 18, 2023
NAOE. Remains intubated and sedated. Pressor support with norepi and vaso. Reportedly with gag reflex today.
Objective
Labs:
09/18/23 04:08
09/18/23 04:08
Labs
Hgb 9.7 g/dL (13.0-18.0) L 09/18/23 04:08
Hct 26.8 % (39.0-52.0) L 09/18/23 04:08
Plt Count 123 10^3/uL (130-400) L 09/18/23 04:08
PT 16.4 Sec (11.4-14.6) H 09/18/23 04:08
INR 1.34 09/18/23 04:08
APTT 77.1 Sec (23.4-35.0) H 09/18/23 04:08
Sodium 125 mmol/L (135-145) L 09/18/23 04:08
Potassium 4.4 mmol/L (3.5-5.1) 09/18/23 04:08
BUN 21 mg/dl (9-20) H 09/18/23 04:08
Creatinine 1.0 mg/dL (0.7-1.3) 09/18/23 04:08
Glucose 142 mg/dl (70-99) H 09/18/23 04:08
Troponins
09/15/23 09/16/23 09/16/23
20:23 01:14 05:55
Troponin I 0.198 H* 18.100 H* D 39.900 H* D
09/16/23 09/16/23 09/17/23
12:03 17:45 00:31
Troponin I 39.300 H* 32.900 H* 26.100 H*
Vital Signs and I&O:
Vital Signs
Temp Pulse Resp BP Pulse Ox
97.8 F 91 17 114/68 99
09/18/23 07:49 09/18/23 09:00 09/18/23 09:00 09/18/23 08:00 09/18/23 09:00
Vital Signs
Temp Pulse Resp BP Pulse Ox
97.8 F 91 17 11468 99
09/18/23 07:49 09/18/23 09:00 09/18/23 09:00 09/18/23 08:00 09/18/23 09:00
Intake & Output
09/16/23 09/17/23 09/18/23 09/19/23
06:59 06:59 06:59 06:59
Intake Total 483.3 / 598.4 4759.5 / 4914.6 4269.8 / 4269.8
Output Total 660 / 810 1979 1635 / 1635
Balance -176.7 / -211.6 2779.5 / 2914.6 2634.8 / 2634.8
Physical Exam
Physical Exam
Gen: NAD
HEENT: NC/AT, sclera anicteric
Neck: No JVD
CV: RRR, NL s1/s2, 2/6 SME at the base
Lungs: Mechanically ventilated
Abd: S/ND
: Roberto with abel urine.
Ext: No LE edema
Skin: Warm, dry.
Neuro: Sedated
--- NOTE | 2023-09-18 09:40 | PTCARENOTE ---
stopped ivf and fentanyl for transport to ct scan. Upon return, Dr Childers in to see pt and said to keep them off.
[2023-09-18] MEDS: LASIX 40 MG IV ×2 (10:02→16:53)
--- NOTE | 2023-09-18 10:10 | PTCARENOTE ---
pt seen by Dr Rangel. Updated to events of morning. He Spoke with daughter about not officially being able to prognosticate until . Plan to resume continuous eeg, increase keppra and lacosamide doses with additional doses this morning.
Per Dr Rangel, propofol to be left as is. Dr Childers aware. Daughter updated to all events of day.
[2023-09-18] MEDS: KEPPRA 500 MG IV (10:32)
--- NOTE | 2023-09-18 10:32 | W.PN.NEURO.1 ---
Today's Communication / Plan
-
Continue continuous EEG monitoring
Increase levetiracetam from 1000 mg twice a day to dosing of 1500 mg twice a day
Increase lacosamide dosing from 100 mg twice a day to dosing of 200 mg twice a day
Continue propofol
Neuro Assessment/Plan
Assessment
78 year old man with history of alcohol use disorder, hypertension, hyperlipidemia, imaging finding of previous stroke, previous seizure possibly alcohol related presenting with cardiac arrest. Undergoing TTM.
Approximately 30 minutes of downtime with arrest.
Initial CT head non contrast with no acute changes, no edema had fairly normal bishop/white matter differentiation. Repeated EEG officially read as not demonstrating edema.
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
Patient very likely had sustained an anoxic brain injury
Malignant EEG along with myoclonus is a poor prognostic factor
Further prognosis for neurologic function/recovery will depend on neurologic examination after rewarming and if able to achieve wean from sedation to give better neurologic examination, additionally further brain imaging will guide prognosis
Plan
Continue continuous EEG monitoring
Increase levetiracetam from 1000 mg twice a day to dosing of 1500 mg twice a day
Increase lacosamide dosing from 100 mg twice a day to dosing of 200 mg twice a day
Continue propofol
Will continue to follow patient.
Subjective/Objective
Subjective Data
Date of Service: September 18, 2023
Patient unable to provide his own medical history
Objective Data
Vital Signs
Temp Pulse Resp BP Pulse Ox
36.6 C 91 17 114/68 99
09/18/23 07:49 09/18/23 09:00 09/18/23 09:00 09/18/23 08:00 09/18/23 09:00
Lab Results
09/18/23 04:08
PT 16.4 Sec (11.4-14.6) H 09/18/23 04:08
INR 1.34 09/18/23 04:08
APTT 77.1 Sec (23.4-35.0) H 09/18/23 04:08
Sodium 125 mmol/L (135-145) L 09/18/23 04:08
Potassium 4.4 mmol/L (3.5-5.1) 09/18/23 04:08
BUN 21 mg/dl (9-20) H 09/18/23 04:08
Glucose 142 mg/dl (70-99) H 09/18/23 04:08
Calcium 7.0 mg/dl (8.4-10.2) L 09/18/23 04:08
Phosphorus Cancelled 09/17/23 21:00
Iiz-J-Zldrmvbqugl Pept 18394 pg/ml 09/16/23 01:14
Patient Allergies
No Known Allergies Allergy (Verified 02/14/23 16:44)
Review of Systems
-
Unable to obtain full review of systems at this time due to: Patient Intubation and Lethargy (Unresponsive)
History Source: Patient
All other systems: Reviewed and negative
Physical Exam
-
General: No Apparent Distress, Intubated and Appears Stated Age
Eyes: Round OU, Vale Conjunctivae and No Ptosis
HEENT: Anicteric and Moist Mucous Membranes
Neck: Full Range of Motion
Respiratory: No Dyspnea
Cardiac: No JVD
GI: Non-distended
Skin: Negative Unremarkable
Extremities: No Clubbing, No Cyanosis and No Edema
Psych: Unable to Assess
Extended Neurological Exam
Mood & Affect: Unable to Assess
Attention Span & Concentration: Unresponsive to Verbal Stimuli and Unresponsive to Physical Stimuli
Memory: Unable to Assess
Tremor: Hand Tremor Absent and Head Tremor Absent
Involuntary Movement: None
Speech: Mute
Cranial Nerve II: Left Eye: Pupillary Reactivity Unremarkable, Pupillary Size Unremarkable and Unable to Assess Visual Solorio
Cranial Nerve II: Right Eye: Pupillary Reactivity Unremarkable, Pupillary Size Unremarkable and Unable to Assess Visual Solorio
Cranial Nerves III, IV, : Extraocular Movement: Absent Doll's Eyes
Cranial Nerve V: Facial Sensation: Other (Negative corneals bilaterally)
Cranial Nerve VII: Facial Symmetry: Normal Facial Symmetry
Cranial Nerve VIII: Hearing: Unable to Assess
Cranial Nerves IX, X: Palate Movement: Unable to Assess
Cranial Nerve XI: Shoulder Shrug: Unable to Assess
Cranial Nerve XII: Tongue Protusion: Unable to Assess
Muscle Strength, Overall: Negative Spontaneously Moves
Muscle Bulk & Tone: Bulk Unremarkable and Tone Unremarkable
Pronator Drift: Unable to Assess
Cold Sensation: Unable to Assess
Vibration Sensation: Unable to Assess
Coordination: Unable to Assess
Gait & Station: Unable to Assess
Data Reviewed
-
CT Head: Image Reviewed
EEG: Ordered and Report Reviewed
Reviewed with: Physician, Nurse and Family (At bedside)
Old Records: Summarized
Past History
Past History
ED Past Medical History: CVA (Left thalamic acute ischemic stroke February 2023), Hypercholesterolemia, Seizures (February 2023) and Other (Morbid obesity, essential tremor, pulmonary nodule, branch retinal vein occlusion 2021, prostatic hypertrophy)
ED Past Surgical History: Orthopedic (Right knee replacement) and Other (Cataract extraction OU)
Social History
Tobacco: Non-smoker
Alcohol: Daily
Personal: Single
Family History
Family History: Other (Reviewed and noncontributory)
Medications
-
Medications:
Generic Name Dose Route Start Last Admin
Trade Name Freq PRN Reason Stop Dose Admin
Acetaminophen 650 mg 09/16/23 00:56
Acetaminophen 650 Mg Rectal Suppository RECTAL 10/14/23 00:55
Q6HPRN PRN
fever
Acetaminophen 650 mg 09/17/23 18:00 09/18/23 04:22
Acetaminophen (Oral Solution) 650 Mg/20.3 Ml Cup TUBE 10/15/23 17:59 650 mg
Q6 JONNIE Administration
Aspirin 300 mg 09/16/23 12:00 09/18/23 07:22
Aspirin 300 Mg Rectal Suppository RECTAL 10/14/23 11:59 300 mg
DAILY JONNIE Administration
Atorvastatin Calcium 80 mg 09/16/23 17:08 09/17/23 17:31
Atorvastatin (Lipitor) 40 Mg Tablet TUBE 10/14/23 11:59 80 mg
QPM JONNIE Administration
Carboxymethylcellulose Sodium 1 drops 09/16/23 08:00 09/18/23 07:23
Carboxymethylcellulose Ophth Gel (Celluvisc) Droperette OPHTH 10/14/23 07:59 1 drops
BID JONNIE Administration
Dextrose 12.5 grams 09/16/23 03:11 09/16/23 18:58
Dextrose 50% (0.5 Grams/Ml) 50 Ml Syringe IV 10/14/23 03:10 12.5 grams
[id number] PRN Administration
BLOOD GLUCOSE < 70
Fentanyl Citrate 50 mcg 09/17/23 16:00
Fentanyl (50 Mcg/Ml) 100 Mcg/2 Ml Ampul IV 10/01/23 15:59
[id number] PRN
see protocol
Protocol
Piperacillin Sod/Tazobactam Sod 3.375 gram in 50 mls @ 100 mls/hr 09/16/23 04:00 09/18/23 09:19
Zosyn IV 50 mls
Q6H JONNIE Administration
Norepinephrine Bitartrate 4 mg in 250 mls @ 0 mls/hr 09/16/23 02:30 09/18/23 04:20
Levophed IV 250 mls
PER PROTOCOL JONNIE Administration
Protocol
Per Protocol
Heparin Sodium 25,000 units in 250 mls @ 0 mls/hr 09/16/23 11:45 09/18/23 02:00
Heparin 34010 Units/250 Ml IV 250 mls
PER PROTOCOL JONNIE Administration
Protocol
Per Protocol
Vasopressin 20 units in 100 mls @ 0 mls/hr 09/16/23 12:00 09/18/23 09:14
Pitressin IV 100 mls
PER PROTOCOL JONNIE Administration
Protocol
Per Protocol
Propofol 1,000,000 mcg in 100 mls @ 9.552 mls/hr 09/17/23 15:00 09/18/23 05:11
Diprivan IV 100 mls
ORDERED RATE JONNIE Administration
20 MCG/KG/MIN
Lacosamide 200 mg 09/18/23 20:00
Lacosamide (10 Mg/Ml) 200 Mg/20 Ml Vial IV 10/02/23 19:59
Q12 JONNIE
Levetiracetam 1,500 mg 09/18/23 20:00
Levetiracetam (100 Mg/Ml) 500 Mg/5 Ml Vial IV 10/14/23 19:59
Q12 JONNIE
Pantoprazole Sodium 40 mg 09/16/23 20:00 09/18/23 07:23
Pantoprazole Sodium 40 Mg/10 Ml Vial IV 10/14/23 19:59 40 mg
BID JONNIE Administration
Sennosides 8.8 mg 09/16/23 20:00 09/18/23 07:23
Sennosides (Senna Syrup) 8.8 Mg/5 Ml Unit Dose Cup TUBE 09/19/23 08:01 8.8 mg
BID JONNIE Administration
Sodium Chloride 0 flush 09/15/23 23:00
Sodium Chloride 0.9% (Flush) Syringe IV 10/13/23 22:59
PER PROTOCOL JONNIE
Sodium Chloride 10 ml 09/16/23 20:00 09/18/23 07:23
Sodium Chloride 0.9% (Preservative Free) 10 Ml Vial IV 10/14/23 19:59 10 ml
BID JONNIE Administration
Thiamine HCl 100 mg 09/16/23 11:00 09/18/23 07:23
Thiamine (100 Mg/Ml) 2 Ml Vial IV 10/14/23 10:59 100 mg
DAILY JONNIE Administration
--- NOTE | 2023-09-18 11:09 | PTCARENOTE ---
pt being placed back on eeg currently
--- NOTE | 2023-09-18 11:34 | W.PN.INTV ---
Today's Communication / Plan
Recommendations
Continue mechanical ventilation without change
Continue antibiotics for aspiration
Continue heparin drip
Antiplatelet
Minimize sedation, currently on low-dose propofol
Antiseizure medications
Continue to follow electrolytes
Diuretics if able
Prognosis is guarded.
Family updated by Dr. Childers 09/18/2023
Assessment
-
Assessment: 78-year-old male with a past medical history of below who presents with [id number] cardiac arrest. Patient lives at [facility]. His son picked him up yesterday and he was with the rest of his family members for several
hours. Per the son, the patient was not acting himself as he was complaining of abdominal pain and was having generalized weakness. The patient is an alcoholic drinking 12 bottles of wine a week and he does drink alcohol daily. The patient
developed sudden shortness of breath yesterday and there was audible gurgling, as per son. Patient was driven back to [facility] with 911 called once they arrived. When EMS arrived patient endorsed abdominal pain, appeared pale and
then while being brought into the ambulance he suffered a cardiac arrest. Per EMS, it was PEA and then asystole. Patient given 4 rounds of epinephrine en route to the hospital and was intubated in the field with Edward CPR being performed on the
chest. ROSC obtained after approximately 30 minutes. Initial labs showed Hb 12.6, metabolic and respiratory acidosis with serum bicarbonate level of 8, pCO2 42, pH 7.25, glucose 285, lactic acid 13.2, troponin initially 0.198 and this raj to 18.1
on the next blood draw, proBNP 17,900, procalcitonin 6.78, and COVID antigen negative. Initial CT head showed no acute intracranial hemorrhage or transcortical infarct. Initial CXR showed bibasilar patchy opacities + concerns for acute
interstitial pulmonary edema. Given that the patient was not following commands or awakening, therapeutic hypothermia was initiated and patient was transferred to the ICU for further care. Critical care services now consulted for additional
management/recommendations.
Chronic conditions SAP BI ARCHITECT: Epilepsy, hypertension, former tobacco use disorder, alcohol use disorder, osteoarthritis, hearing impairment
Impression:
#Out of hospital cardiac arrest - reported to be PEA and then became asystole with ROSC after ~ 30 mins s/p 4 pushes of epi
#Aspiration pneumonia involving bilateral lungs
#Acute respiratory failure with hypoxia + hypercapnia now on mechanical ventilation
#Elevated troponin with abnormal EKG due to suspected NSTEMI - ST elevations in aVR, V1-[address] depressions, concerning for ischemia especially with new LBBB
#Acute HFpEF exacerbation with small bilateral pleural effusions and pulmonary vascular congestion in the setting of suspected NSTEMI as above
Echocardiogram during the hospital stay ejection fraction 15%.
#Anemia
#Non-anion gap metabolic acidosis + respiratory acidosis
#Hyponatremia
#Hyperglycemia on insulin gtt
#Lactic acidosis
#Alcohol use disorder
#Former tobacco use disorder
#Epilepsy on Keppra
Plan:
Remains critically ill: Remains intubated and on vasopressors. Targeted temperature protocol completed. Patient is now rewarmed.
-
With sedation decreased, patient has respiratory effort, corneal reflex, mild gag reflex. Otherwise not withdrawing to pain or following commands.
-
Currently on low-dose propofol. Per neurology will continue for now.
Fentanyl discontinued.
Antiseizure medications adjusted
Continue with frequent neurological checks
CT of the head this morning 09/18/2023: Reviewed, showed no acute abnormalities.
-
Continue hemodynamic support-will continue to wean down Levophed as able.
Echocardiogram noted with ejection fraction 15% and global hypokinesis.
Whether ejection fraction will recover is not clear.
Cardiology continues to follow. No plans for any ischemic evaluation at this point.
Continue antiplatelets
Heparin drip was stopped tonight.
-
Mechanical ventilation settings reviewed, continue without change. ABG showed adequate oxygenation on ventilation.
Respiratory mechanics acceptable.
- Maintain SpO2 >94% by adjusting FiO2 + PEEP
- Maintain plateau pressure <30
-
Continue vasopressors with goal MAP >65
Currently on norepinephrine and vasopressin.
Will continue to wean down as able.
No further arrhythmias at this point.
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
Nephrology consulted
Discontinue IV fluids
Diuretics if hemodynamics allow.
Continue to follow electrolytes.
Possible aspiration event:
- Continue broad-spectrum antibiotics with Zosyn
Vancomycin discontinued. MRSA screening negative.
Chest x-ray reviewed with possible right lower lobe infiltrate. Suspect aspiration.
- Plan for 7 days of ABx, depending on cultures.
- The patient is having jerking movements and this is suspicious for myoclonic jerks versus seizures �
Monitor for alcohol withdrawal-Daily alcohol drinker.
Discussed with neurology earlier today.
- Thiamine, folate and MVN
-
- Maintain euglycemia with goal BG 140-180
- Continue insulin gtt as per hypothermia protocol
- Once ready to wean off insulin gtt, would bridge x 2 hours with lantus, giving a dose equaling ~25-30% of preceding 24 hour total daily requirement of insulin in units
-
- DVT ppx - heparin gtt being started as per cardiology, follow PTT.
Lines:
Right femoral CVC
Roberto catheter
Right radial arterial catheter
ETT
OGT
Dr. Childers discussed with neurology and primary team.
Dr. Childers updated daughter at the bedside 09/18/2023. Will continue supportive care for additional [address] Childers also updated family 09/17/2023. Daughter states that if patient has poor prognostic indicators and after rewarming there is no signs of meaningful neurological recovery likely will withdraw care at some point.
Critical care statement: A total of 41 minutes of critical care time was provided for this patient today. This includes management of unstable vital signs, evaluation of the patient at bedside, reviewing the patient's pertinent medical records
including radiographs, microbiology, laboratory evaluations, and discussion with primary team, consultants, pharmacy, nutrition, physical therapy, case management, charge nurse, critical care nursing, and respiratory therapy.
Data:
Head CT 09-15-2023:
1. No CT evidence for acute intracranial hemorrhage or transcortical infarct.
2. Severe white matter leukoaraiosis in the frontal and parietal lobes which appears unchanged.
3. Moderate diffuse cerebral and cerebellar volume loss.
4. 3.8 cm arachnoid cyst in the right side of the posterior fossa which appears unchanged.
5. Endotracheal tube in place with a moderate amount of layering fluid in the posterior nasopharynx.
CXR 09-16-2023:
1. MODERATE ACUTE INTERSTITIAL and ALVEOLAR CARDIOGENIC PULMONARY EDEMA which is not definitively changed.
2. Mild cardiomegaly.
3. Endotracheal and nasogastric tubes remaining in place.
Subjective Dataa
Subjective Data
Date of Service:
Date of Service: September 18, 2023
Chief Complaint: Life Skills Coordinator Volunteer Follow Up (Status postcardiac arrest)
Subjective:
No overnight events, remains on vasopressors. Intubated and critically ill.
With sedation breaks patient has respiratory effort.
Corneal reflex
Mild gag reflex
Review of Systems
General: Unobtainable - Pat Unresp
Objective Data
Data Reviewed
Vital Signs / I&O / Oxygen:
Vital Signs
Temp Pulse Resp BP Pulse Ox
97.8 F 89 16 114/68 100
09/18/23 08:00 09/18/23 11:00 09/18/23 11:00 09/18/23 08:00 09/18/23 11:00
Intake and Output
09/17/23 09/18/23 09/19/23
06:59 06:59 06:59
Intake Total 4759.5 / 4914.6 4269.8 / 4473.8 476.0 / 476.0
Output Total 1979 1635 / 1735 300 / 300
Balance 2779.5 / 2914.6 2634.8 / 2738.8 176.0 / 176.0
SaO2 [A/C] 100
SaO2 100
Physical Exam
General: Comfortable
HEENT: Other (ET tube in place without secretion)
Cardiovascular: S1-S2
Respiratory: Clear and Non-Labored Respirations
GI: Soft and Non Distended
Neurology: Other (Pupils are pinpoint and sluggish.) and Other (With sedation decreased, has respiratory effort, has corneal reflex, mild gag reflex. Does not withdraw to pain. Not following commands.)
Skin: Warm
Labs/Micro/Reports
Lab Data
09/18/23 04:08
Laboratory Results
09/17/23 09/17/23 09/18/23
12:31 18:24 04:08
PT 16.4 H
INR 1.34
APTT 80.3 H 78.9 H 77.1 H
pH 7.39
pCO2 31 L
pO2 90
HCO3 18.8 L
O2 Delivery Level
Microbiology
09/16/23 14:19 Endotracheal Respiratory Culture - Final
Yeast
09/16/23 14:19 Endotracheal Gram Stain - Final
09/16/23 12:03 Blood/Venous Blood Culture - Preliminary
No Growth in 24 hours- Final report to follow
09/16/23 14:19 Urine Urine Culture - Final
NO GROWTH
09/16/23 14:19 Nose Nasal Screen MRSA (PCR) - Final
MRSA not detected - performed by PCR methodology.
09/16/23 12:03 Urine Legionella Urinary Antigen - Final
Negative for Legionella pneumophila Serogroup 1 antigen.
A negative result does not rule out the possiblity of
Legionella infection due to other serogroups or species of
Legionella. Clinical correlation is recommended.
09/16/23 12:03 Urine Streptococcus pneumoniae Antigen (M - Final
Negative for Streptococcus pneumoniae antigen.
A negative result does not exclude infection with
Streptococcus pneumoniae. Clinical correlation is
recommended.
09/15/23 23:12 Nasal Swab Influenza Types A & B (NAOMI) - Final
Negative for Influenza A & B, NAAT
Negative results must be combined with clinical observations
and patient history.
Nucleic Acid Amplification test (NAAT)performed on the
[employer] platform.
[2023-09-18 12:00] VITALS: BP 111/65
--- NOTE | 2023-09-18 12:15 | PTCARENOTE ---
Systems reviewed. Pt now with only left corneal, no gag, not withdrawing to pain. Pupils remain nonreactive. Have been weaning levo as charted while pt diuresing. Yellow colored ring removed from left hand and placed on photo frame for family to
take with them. Daughter in law in to see pt and let son know to take ring when he arrives. Otherwise no changes.
[2023-09-18 16:00] VITALS: BP 103/63
--- NOTE | 2023-09-18 16:09 | W.PN.UPDATE ---
Update Note
Progress Note Update
Continuous EEG monitoring update
Burst suppression demonstrated with beta activity between each second burst lasting 0.5 seconds of high amplitude delta activity.
Unchanged during monitoring even with alteration in medications
Will continue continuous EEG monitoring
[2023-09-18 16:28] LABS: Carbon Dioxide 19 mmol/L (22-30); Chloride 96 mmol/L (98-107); Potassium 4.1 mmol/L (3.5-5.1); Sodium 124 mmol/L (135-145)
--- NOTE | 2023-09-18 16:30 | PTCARENOTE ---
Systems reviewed. No changes from noon. Pt maintained off fentanyl with propofol as charted. pressors as charted. Heparin gtt unchanged. Dr Nobles in to see pt. Updated to i/o, repeat labs, pressor requirements. Additional lasix ordered. No
other changes
[2023-09-18] MEDS: LIPITOR 80 MG TUBE (18:09)
--- NOTE | 2023-09-18 18:25 | PTCARENOTE ---
Daughter called in and was given update.
Levo currently off
--- NOTE | 2023-09-18 19:23 | PTCARENOTE ---
levo restarted at start of report. see flowsheet
[2023-09-18 20:00] VITALS: BP 96/57
--- NOTE | 2023-09-18 20:00 | PTCARENOTE ---
pt chart reviewed, on assessment pt unresponsive, no gag, weak cough, pupils unreactive, no corneals, continues with cont. EEG monitoring, temp 97.2, artic sun remains on per order, scheduled Tylenol, pulses weak, SR, on hep gtt, BP map 60s to 70s,
on levo and vaso, lungs course, thick bloody secretions, NPO - OGT at 58cm at lip, int. suction, rectal trumpet in place, #16 thibodeaux with temp probe, monitored Q1h, repositioned with pillow support, heels elevated. Please refer to worklist for full
assessment and Is & Os.
[2023-09-18] MEDS: KEPPRA 1500 MG IV (20:14)
[2023-09-18] MEDS: VIMPAT 200 MG IV (20:15)
[2023-09-19] VITALS: BP 85/50
--- NOTE | 2023-09-19 | PTCARENOTE ---
on reassessment no corneals, no gag, weak cough, continues with levo, vaso, and prop. repositioned q2h, no other changes at this time.
[2023-09-19] MEDS: DIPRIVAN 100 IV ×2 (01:29→10:04)
[2023-09-19 04:00] VITALS: BP 106/62
--- NOTE | 2023-09-19 04:00 | PTCARENOTE ---
Levo titrating up overnight, CARLOS called and updated, no other changes at this time.
[2023-09-19] MEDS: TYLENOL ORAL SOLUTION 650 MG TUBE (04:37)
[2023-09-19] MEDS: ZOSYN 50 IV ×2 (04:37→10:06)
[2023-09-19 04:43] LABS: B.E. -1.3 mmol/L; HCO3 22.4 mmol/L (21-28); Ionized Calcium 1.08 mMOL/L (1.15-1.33); O2 Saturation % 99.7 % (94-98); PCO2 33 mmHg (35-48); PO2 120 mmHg (83-108); Potassium 3.4 mMOL/L (3.5-5.1); Sodium 123 mMOL/L (136-145); pH 7.44 (7.35-7.45)
[2023-09-19 04:44] LABS: Hematocrit 25.8 % (39.0-52.0); Hemoglobin 9.4 g/dL (13.0-18.0); Mean Corp Hgb Conc. 36.4 g/dL (33.0-37.0); Mean Corpuscular Hgb 34.3 pg (27.0-31.0); Mean Corpuscular Volume 94.2 fL (80.0-94.0); Mean Platelet Volume 10.2 fL (7.4-10.4); Platelet Count 117 10^3/uL (130-400); Red Blood Cell Count 2.74 10^6/uL (4.70-6.10); Red Cell Dist. Width 11.9 % (11.5-14.5); White Blood Cell Count 15.1 10^3/uL (4.8-10.8)
[2023-09-19 04:51] LABS: O2 Therapy 40%
[2023-09-19 05:02] LABS: APTT 51.2 Sec (23.4-35.0)
[2023-09-19 05:14] LABS: Blood Urea Nitrogen 19 mg/dl (9-20); Calcium 7.5 mg/dl (8.4-10.2); Carbon Dioxide 24 mmol/L (22-30); Chloride 95 mmol/L (98-107); Estimated Creatinine Clearance 57 ml/min; Glucose 121 mg/dl (70-99); Potassium 3.4 mmol/L (3.5-5.1); Sodium 125 mmol/L (135-145); eGFR > 60.00
[2023-09-19] MEDS: HEPARIN 25000 UNITS/250 ML IV (05:48)
[2023-09-19 06:00] VITALS: BMI 28.2
[2023-09-19] MEDS: KCL 50 IV (06:06)
--- NOTE | 2023-09-19 07:19 | W.PN.HOSP.TC ---
Today's Communication/Plan
-
see bold
Assessment / Plan
Assessment / Plan
Gen: NAD, NCAT
CV: continues to remain RRR, +S1/S2, no m/r/g.
Resp: remains CTAB anteriorly, no rales, wheezes, or rhonchi.
Abd: remains +BS/soft/ND
Skin: No rashes. No lower ext edema
Neuro: sedated
09/16/23 12:03 Blood/Venous Blood Culture - Preliminary
No Growth in 48 hours- Final report to follow
09/16/23 14:19 Endotracheal Respiratory Culture - Final
Yeast
09/16/23 14:19 Endotracheal Gram Stain - Final
09/16/23 14:19 Urine Urine Culture - Final
NO GROWTH
09/16/23 14:19 Nose Nasal Screen MRSA (PCR) - Final
MRSA not detected - performed by PCR methodology.
09/16/23 12:03 Urine Legionella Urinary Antigen - Final
Negative for Legionella pneumophila Serogroup 1 antigen.
A negative result does not rule out the possiblity of
Legionella infection due to other serogroups or species of
Legionella. Clinical correlation is recommended.
09/16/23 12:03 Urine Streptococcus pneumoniae Antigen (M - Final
Negative for Streptococcus pneumoniae antigen.
A negative result does not exclude infection with
Streptococcus pneumoniae. Clinical correlation is
recommended.
09/15/23 23:12 Nasal Swab Influenza Types A & B (NAOMI) - Final
Negative for Influenza A & B, NAAT
Negative results must be combined with clinical observations
and patient history.
Nucleic Acid Amplification test (NAAT)performed on the
[employer] NOW platform.
CXR:
1. MODERATE ACUTE INTERSTITIAL and ALVEOLAR CARDIOGENIC PULMONARY EDEMA which is not definitively changed.
2. Mild cardiomegaly.
3. Endotracheal and nasogastric tubes remaining in place.
CT brain:
1. No CT evidence for acute intracranial hemorrhage or transcortical infarct.
2. Severe white matter leukoaraiosis in the frontal and parietal lobes which appears unchanged.
3. Moderate diffuse cerebral and cerebellar volume loss.
4. 3.8 cm arachnoid cyst in the right side of the posterior fossa which appears unchanged.
5. Endotracheal tube in place with a moderate amount of layering fluid in the posterior nasopharynx.
CTA C/A/P:
CHEST CTA:
1. Large amount of symmetric bilateral airspace consolidation in the lower lobes and moderate centrilobular ground-glass opacity in the upper lobes which is most consistent with SEVERE ACUTE ALVEOLAR PULMONARY EDEMA given the history of cardiac
arrest. SEVERE BILATERAL PNEUMONIA (possibly aspiration pneumonia) is an alternative diagnostic possibility.
2. Small bilateral pleural effusions.
3. Severe calcific atherosclerotic plaque in the coronary arteries.
4. Severe calcific atherosclerotic plaque in the thoracic aorta.
5. Moderate calcification in the aortic valve.
6. Endotracheal and nasogastric tubes in place.
7. 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
ABDOMEN and PELVIS CTA:
1. Severe calcific atherosclerotic plaque in the abdominal aorta.
2. No CTA evidence for abdominal aortic aneurysm or dissection.
3. Severe diffuse hepatic steatosis.
4. Mild chronic bilateral renal disease.
5. Mild perisplenic ascites.
6. Severely enlarged prostate gland.
7. Severe thickening of the urinary bladder wall suggesting chronic outlet obstruction.
8. Moderate diverticulosis in the descending and sigmoid colon.
9. Nasogastric tube and Roberto catheter in place.
cEEG:
09/17/23: Severely abnormal EEG for age in wakefulness through drowsiness due to isoelectric burst suppression activity lack of unresponsiveness. This study was suggestive of severe bihemispheric suppression of activity.
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
Echo: EF 15%, G3DD, mod-sev , global hypokinesis with mid anteroseptal, mid septal, mid anterior, mid lateral, and apical akinesis.
CT brain 09/18/23: No acute intracranial abnormality noted.
Acute cardiac Arrest/Acute hypoxemic and hypercapnic respiratory failure:
-Patient with PEA arrest s/p CPR x 30 min and 4 rounds of EPI with ROSC. Unresponsive afterwards. Arrived intubated in ED. ECG on admission without acute ischemia. Trop 0.19 (peaked at 39.9). No evidence of PE. Possible multifocal pneumonia
with hypoxia as cause of arrest versus pulmonary edema. No evidence of diffuse total body volume overload.
-Acute hypoxemic and hypercapnic respiratory failure due to PEA arrest, possible multifocal pneumonia (possibly due to aspiration), possible heart failure due to cardiac arrest/pulm edema, possible type I vs type II [place].
-cont Zosyn
-cont Levophed for MAP > 65
-Targeted temperature management
-cont Propofol/fentanyl
-currently on heparin gtt, will stop this AM
-cards/neuro/senior gl accountant following
-Lactic acidosis (acute metabolic acidosis), resolved with IVFs
-Also acute respiratory acidosis
-Lasix trialed in the ED with about 200 cc of urine output
-s/p IVFs with HCO3-
Hyperglycemia:
-a1c 5.1%
-was on insulin infusion, now off
-accuchecks
Seizure d/o:
-h/o seizures 6 months ago. Unclear if from withdrawal or secondary to CVA. On keppra at home.
-Appeared to have been having possible status epilepticus in ED
-pt loaded with 3g Keppra on admission
-EEG on 09/16/23 with burst suppression concerning for seizure activity so versed gtt was started 09/16/23, stopped 09/17/23
-cont Keppra/Vimpat
-cont cEEG
-cont propofol
Hypomagnesemia, resolved
Hypotonic Hyponatremia: Likely SIADH. appreciate renal. s/p IV Lasix
Hypokalemia, resolved
Daughter updated at bedside.
Code Status: The admitting physician had an extensive discussion with family on admission. Poor prognosis. Patient is Limited DNR at this time. Intubation/pressors are OK. No CPR/defib.
Total critical care time spent = 34 min.
Anticipated Discharge: > 48 hours
Subjective/Interval History
-
Date of Service: September 19, 2023
Intubated, sedated
Objective Data
-
Labs:
Laboratory Results
09/19/23 09/19/23
04:27 12:00
WBC 15.1 H
Hgb 9.4 L
Hct 25.8 L
Plt Count 117 L
APTT 51.2 H Pending
HCO3 22.4
Sodium 125 L
Potassium 3.4 L
Chloride 95 L
Carbon Dioxide 24
BUN 19
Creatinine 1.0
Glucose 121 H
Calcium 7.5 L
Vital Signs:
Vital Signs
Temp Pulse Resp BP Pulse Ox
97.8 F 75 16 106/62 99
09/19/23 07:17 09/19/23 06:00 09/19/23 06:00 09/19/23 04:00 09/19/23 06:00
I&O
09/18/23 09/19/23 09/20/23
06:59 06:59 06:59
Intake Total 4269.8 / 4473.8 1569.6 / 1569.6
Output Total 1775 / 1875 4115 / 4115
Balance 2494.8 / 2598.8 -2545.4 / -2545.4
[2023-09-19] MEDS: CALCIUM CHLORIDE 10% SYRINGE 60 MG IV (07:35)
[2023-09-19] MEDS: VIMPAT 200 MG IV (07:43)
[2023-09-19] MEDS: KEPPRA 1500 MG IV (07:43)
[2023-09-19] MEDS: ASPIRIN 300 MG RECTAL (07:43)
[2023-09-19] MEDS: SENNA SYRUP 8.80000000000000071 MG TUBE (07:44)
[2023-09-19] MEDS: REFRESH CELLUVISC GEL 1 DROPS OPHTH (07:44)
[2023-09-19] MEDS: THIAMINE INJECTION 100 MG IV (07:44)
[2023-09-19] MEDS: PROTONIX IV 40 MG IV (07:45)
[2023-09-19] MEDS: NSS (PRESERVATIVE FREE) 10 ML IV (07:45)
[2023-09-19] MEDS: PITRESSIN 100 IV (07:48)
[2023-09-19] MEDS: LEVOPHED 250 IV (07:49)
--- NOTE | 2023-09-19 07:51 | EEGC.RPT ---
Continuous EEG Report
Recording
Start Date of Data Reviewed: 09/18/23
Start Time of Data Reviewed: 07:00
End Date of Data Reviewed: 09/19/23
End Time of Data Reviewed: 07:00
Type of EEG: Continuous
Done with Video Recording: Yes
Study Sequence: Continuation of ongoing Study
Electrocardiogram: Unremarkable
Report
24 HOUR CONTINUOUS EEG REPORT
24 HOUR CONTINUOUS EEG INTERPRETATION:
Severely abnormal EEG for age in wakefulness through drowsiness due to:
Isoelectric burst suppression activity with lack of unresponsiveness.
CLINICAL CORRELATION:
This study was suggestive of severe bihemispheric suppression of activity.
In comparison with prior studies, there was mild improvement with absence of suppressions.
Clinical correlation is advised.
METHODS:
A 21 channel digitized electroencephalogram (EEG) was performed at the bedside in the intensive care unit. The 10/20 international system of electrode placement was used. ECG was monitored. Persyst quantitative analysis was not performed due to
technical limitations.
ELECTROENCEPHALOGRAPHER IMPRESSION(S):
Quality
Good
Background
Maximum: Beta, usually delta, poorly organized
Amplitude: Medium
Anterior-posterior gradient: Absent
Sleep
Not demonstrated
Abnormal EEG activity
Isoelectric suppressions lasting for approximately 2 seconds were interrupted by bursts of poorly organized delta activity lasting for approximately 1 second.
Electrocardiogram
Regular rhythm
[2023-09-19 08:00] VITALS: BP 116/68
--- NOTE | 2023-09-19 08:27 | PTCARENOTE ---
Received pt with eyes closed.No response to verbal,tactile or noxious stimuli.Pupils sluggishly reactive.+ corneal reflex and cough noted.No gag noted.SR noted.Heparin,Vasopressin,Levophed and Propofol gtts infusing via right femoral TLC.TTM
normothermia until 1400 today.#7 ETT to vent Decreased breath sounds bibasilar.Suctioned for moderate amount blood tinged pascual secretions.POX 98%OGT intact and draining bilious fluid.Rectal trumpet draining green liqiod stool.Roberto draining yellow
urine.Skin integrity as documented.Pt's daughter at bedside.Plan if care discussed.
--- NOTE | 2023-09-19 10:22 | W.PN.NEPH.PH ---
Today's Communication / Plan
-
lasix iv and replace k, cecile
Assessment/Plan
-
Impression:
Hyponatremia
Status post PEA arrest
Prolonged unresponsive event
Metabolic acidosis
Hypercapnic respiratory failure aspiration bilateral pneumonia
Seizure disorder
Hypertension
Peripheral vascular disease
History of CVA
Alcohol abuse
Plan:
Hyponatremia:
-Urine osmolality of 458 consistent with ADH excess likely exacerbated by hypotension in setting of poor cardiac output and hypervolemia
-Maintain pressor support to keep MAP at 65 or greater
-cannot provide samsca patient with NGT and patient non responsive
metabolic acidosis improving
wt is improving but higher than admit wt
will cont lasix 40mg IV now, replace k
replace cecile too
-Patient critically ill in setting of vent dependent respiratory failure neurologically poorly responsive and suspected cardiogenic shock
CC time spent 31min
-
-
Date of Service: September 19, 2023
CC / HPI / ROS
-
Chief Complaint:
hyponatremia
History of Present Illness:
sodium no change at 125, non oliguric with lasix
remains on levo, off vaso
normothermia to be done this afternoon
no fever, remains on propofol, EEG abnormal
hb stable at 9.4. plt decreasing to 117
Review of Systems:
intubated and sedated
Labs
-
Labs:
WBC 15.1 10^3/uL (4.8-10.8) H 09/19/23 04:27
RBC 2.74 10^6/uL (4.70-6.10) L 09/19/23 04:27
Hgb 9.4 g/dL (13.0-18.0) L 09/19/23 04:27
Hct 25.8 % (39.0-52.0) L 09/19/23 04:27
Plt Count 117 10^3/uL (130-400) L 09/19/23 04:27
Sodium 125 mmol/L (135-145) L 09/19/23 04:27
Potassium 3.4 mmol/L (3.5-5.1) L 09/19/23 04:27
Chloride 95 mmol/L (98-107) L 09/19/23 04:27
Carbon Dioxide 24 mmol/L (22-30) 09/19/23 04:27
BUN 19 mg/dl (9-20) 09/19/23 04:27
Creatinine 1.0 mg/dL (0.7-1.3) 09/19/23 04:27
eGFR > 60.00 09/19/23 04:27
Glucose 121 mg/dl (70-99) H 09/19/23 04:27
Calcium 7.5 mg/dl (8.4-10.2) L 09/19/23 04:27
Phosphorus Cancelled 09/17/23 21:00
Qgq-E-Ahtqbydxmwy Pept 59671 pg/ml 09/16/23 01:14
Albumin Cancelled 09/17/23 21:00
Physical Exam
-
Vital Signs:
Vital Signs
Temp Pulse Resp BP Pulse Ox
97.8 F 75 16 106/62 98
09/19/23 07:17 09/19/23 06:00 09/19/23 06:00 09/19/23 04:00 09/19/23 08:16
Cardiovascular:: Regular rate and rhythm
Lung Excursion:: Abnormal (decreased)
Abdomen:: Nontender and Soft
Extremity Edema:: None: Bilateral:
Roberto Catheter: Yes
--- NOTE | 2023-09-19 10:24 | PN.CDI ---
CDI
- -
CDI:
Physician Documentation Request
Admit Date: 09/15/23 22:51
Dear Doctor Riaz,
Patient admitted following cardiac arrest.
09/17 Cardiology PN: 'Left bundle branch block noted on ECG during admission - now anterior infarct pattern...Cont ASA/statin, IV heparin gtt x48hrs, will stop tonight, Eventual BB as hemodynamics allow'
09/17 Biological Sciences Professor PN: 'Elevated troponin with abnormal EKG due to suspected NSTEMI - ST elevations in aVR, V1-[address] depressions, concerning for ischemia especially with new LBBB'
09/18 Hospitalist PN: 'possible heart failure due to cardiac arrest/pulm edema, possible type I vs type II [place].'
Please clarify the following regarding the documented myocardial infarction'
Extent of [place]
STEMI - indicate the location and vessel involved
NSTEMI - subendocardial, nontransmural
Unable to determine
Type of [place]
Type I
Type II (due to demand ischemia)
Other (Type 3, 4a, 4b, 4c, 5) please specify
Unable to determine
Use of terms such as suspected, likely, concern for, or probable (associated with a specific diagnosis that is being evaluated, monitored, or treated as if it exists) are acceptable and can be coded in the inpatient setting, when documented at the
time of discharge.
Thank you,
Yesenia Thompson RN, BSN
CDI Specialist
Available via [place] text
Please use your independent medical judgment in providing your response.
--- NOTE | 2023-09-19 10:53 | W.PN.CARDCBS ---
Addendum entered and electronically signed by Jatinder Santizo MD 09/19/23 12:59:
Clinical query regarding troponin elevation:
Suspect NSTEMI - Given rise and fall in troponin and ST changes on admission ECG
Original Note:
Today's Communication / Plan
-
Stop heparin
Continue aspirin and statin
Eventual ischemic evaluation if he has neurologic recovery
Impression / Plan
-
Wool Hanker: Vic
PMHx:
PEA arrest, out of hospital
Troponin elevation
CVA
HTN
HLD
Seizure disorder
Alcohol dependence
TTE 09/17/23: LVEF 15%, anterior and anteroseptal akinesis from mid portion to apex, mod-severe
Plan:
Remains unresponsive, but sedation is being weaned
Left bundle branch block noted on ECG during admission - now anterior infarct pattern
Troponin peaked at 40
Possible that aortic stenosis or ACS were the cause of the arrest
Cont ASA/statin
Stop heparin gtt as patient has completed 48hrs
Eventual BB as hemodynamics allow
Suspect he will eventually need diuresis, hold off for now while requiring pressor support
Consider ischemic eval if he has neurologic recovery
Discussed with nursing and family at bedside
Progress Note - Wool Hanker
Subjective
Date of Service: September 19, 2023
No acute overnight events. Patient remains intubated and sedated in the medical ICU. Still requiring norepinephrine and vasopressin for pressor support.
Objective
Labs:
09/19/23 04:27
Labs
Hgb 9.4 g/dL (13.0-18.0) L 09/19/23 04:27
Hct 25.8 % (39.0-52.0) L 09/19/23 04:27
Plt Count 117 10^3/uL (130-400) L 09/19/23 04:27
PT 16.4 Sec (11.4-14.6) H 09/18/23 04:08
INR 1.34 09/18/23 04:08
APTT 51.2 Sec (23.4-35.0) H 09/19/23 04:27
Sodium 125 mmol/L (135-145) L 09/19/23 04:27
Potassium 3.4 mmol/L (3.5-5.1) L 09/19/23 04:27
BUN 19 mg/dl (9-20) 09/19/23 04:27
Creatinine 1.0 mg/dL (0.7-1.3) 09/19/23 04:27
Glucose 121 mg/dl (70-99) H 09/19/23 04:27
Troponins
09/16/23 09/16/23 09/17/23
12:03 17:45 00:31
Troponin I 39.300 H* 32.900 H* 26.100 H*
Vital Signs and I&O:
Vital Signs
Temp Pulse Resp BP Pulse Ox
97.9 F 75 16 106/62 98
09/19/23 08:00 09/19/23 06:00 09/19/23 06:00 09/19/23 04:00 09/19/23 08:16
Vital Signs
Temp Pulse Resp BP Pulse Ox
97.9 F 75 16 106/62 98
09/19/23 08:00 09/19/23 06:00 09/19/23 06:00 09/19/23 04:00 09/19/23 08:16
Intake & Output
09/17/23 09/18/23 09/19/23 09/20/23
06:59 06:59 06:59 06:59
Intake Total 5399.5 / 4914.6 4269.8 / 4473.8 1569.6 / 1569.6
Output Total 1979 1775 / 1875 4115 / 4115
Balance 2779.5 / 2914.6 2494.8 / 2598.8 -2545.4 / -2545.4
Physical Exam
Physical Exam
Gen: NAD
HEENT: NC/AT, sclera anicteric
Neck: No JVD
CV: RRR, NL s1/s2, 2/6 AN at the base
Lungs: Mechanically ventilated
Abd: S/ND
: Roberto with abel urine.
Ext: No LE edema
Skin: Warm, dry.
Neuro: Sedated
--- NOTE | 2023-09-19 10:59 | W.PN.INTV ---
Today's Communication / Plan
Recommendations
Continue mechanical ventilation without change
Minimize sedation as able
Antibiotics
Wean off vasopressors as able
Hold off on tube feedings
Continue antiseizure medication
Prognosis is poor.
Assessment
-
Assessment: 78-year-old male with a past medical history of below who presents with [id number] cardiac arrest. Patient lives at [facility]. His son picked him up yesterday and he was with the rest of his family members for several
hours. Per the son, the patient was not acting himself as he was complaining of abdominal pain and was having generalized weakness. The patient is an alcoholic drinking 12 bottles of wine a week and he does drink alcohol daily. The patient
developed sudden shortness of breath yesterday and there was audible gurgling, as per son. Patient was driven back to [facility] with 911 called once they arrived. When EMS arrived patient endorsed abdominal pain, appeared pale and
then while being brought into the ambulance he suffered a cardiac arrest. Per EMS, it was PEA and then asystole. Patient given 4 rounds of epinephrine en route to the hospital and was intubated in the field with Edward CPR being performed on the
chest. ROSC obtained after approximately 30 minutes. Initial labs showed Hb 12.6, metabolic and respiratory acidosis with serum bicarbonate level of 8, pCO2 42, pH 7.25, glucose 285, lactic acid 13.2, troponin initially 0.198 and this raj to 18.1
on the next blood draw, proBNP 17,900, procalcitonin 6.78, and COVID antigen negative. Initial CT head showed no acute intracranial hemorrhage or transcortical infarct. Initial CXR showed bibasilar patchy opacities + concerns for acute
interstitial pulmonary edema. Given that the patient was not following commands or awakening, therapeutic hypothermia was initiated and patient was transferred to the ICU for further care. Critical care services now consulted for additional
management/recommendations.
Chronic conditions CHILDREN'S AUTHOR: Epilepsy, hypertension, former tobacco use disorder, alcohol use disorder, osteoarthritis, hearing impairment
Impression:
#Out of hospital cardiac arrest - reported to be PEA and then became asystole with ROSC after ~ 30 mins s/p 4 pushes of epi
#Aspiration pneumonia involving bilateral lungs
#Acute respiratory failure with hypoxia + hypercapnia now on mechanical ventilation
#Elevated troponin with abnormal EKG due to suspected NSTEMI - ST elevations in aVR, V1-[address] depressions, concerning for ischemia especially with new LBBB
#Acute HFpEF exacerbation with small bilateral pleural effusions and pulmonary vascular congestion in the setting of suspected NSTEMI as above
Echocardiogram during the hospital stay ejection fraction 15%.
#Anemia
#Non-anion gap metabolic acidosis + respiratory acidosis
#Hyponatremia
#Hyperglycemia on insulin gtt
#Lactic acidosis
#Alcohol use disorder
#Former tobacco use disorder
#Epilepsy on Keppra
Plan:
Remains critically ill: Remains intubated and on vasopressors. Targeted temperature protocol completed. Patient is now rewarmed.
-
Remain only on low-dose propofol overnight
No meaningful neurological recovery: Essentially unchanged from yesterday, has corneal reflex, hide respiratory effort is and has cough effort.
-
Currently on low-dose propofol. Defer to neurology timing for discontinuation.
Fentanyl discontinued.
Continue antiepileptic drugs.
EEG monitoring.
Continue with frequent neurological checks
CT of the head morning 09/18/2023: Reviewed, showed no acute abnormalities.
-
Continue hemodynamic support-will continue to wean down Levophed as able.
Vasopressors discontinued 09/19/2023.
Echocardiogram noted with ejection fraction 15% and global hypokinesis.
Whether ejection fraction will recover is not clear.
Cardiology continues to follow. No plans for any ischemic evaluation at this point.
Continue antiplatelets
Heparin drip discontinued.
-
Mechanical ventilation settings reviewed, continue without change. ABG showed adequate oxygenation on ventilation.
Respiratory mechanics acceptable.
- Maintain SpO2 >94% by adjusting FiO2 + PEEP
- Maintain plateau pressure <30
No plans for spontaneous breathing trial.
-
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
Nephrology consulted
Discontinued IV fluids
Diuretics if hemodynamics allow.
Continue to follow electrolytes.
Diuretics as able
Possible aspiration event:
- Continue broad-spectrum antibiotics with Zosyn total 5 days.
Vancomycin discontinued. MRSA screening negative.
Chest x-ray reviewed with possible right lower lobe infiltrate. Suspect aspiration.
- Plan for 7 days of ABx, depending on cultures.
Monitor for alcohol withdrawal-Daily alcohol drinker. Not evident at this point the patient has been on sedation.
- Thiamine, folate and MVN
-
- Maintain euglycemia with goal BG 140-180
Will continue to provide insulin as necessary.
-
- DVT ppx -once heparin drip is discontinued will transition to subcu prophylactic dose.
Lines:
Right femoral CVC
Roberto catheter
Right radial arterial catheter
ETT
OGT
Poor prognosis in regards to meaningful neurological recovery going forward.
Dr. Childers has been updating family on a daily basis. They would not want any heroic interventions.
Dr. Childers discussed with neurology and primary team 09/19/2023.
Dr. Childers updated daughter at the bedside 09/18/2023. Will continue supportive care for additional [address] Childers also updated family 09/17/2023. Daughter states that if patient has poor prognostic indicators and after rewarming there is no signs of meaningful neurological recovery likely will withdraw care at some point.
Critical care statement: A total of 41 minutes of critical care time was provided for this patient today. This includes management of unstable vital signs, evaluation of the patient at bedside, reviewing the patient's pertinent medical records
including radiographs, microbiology, laboratory evaluations, and discussion with primary team, consultants, pharmacy, nutrition, physical therapy, case management, charge nurse, critical care nursing, and respiratory therapy.
Data:
Head CT 09-15-2023:
1. No CT evidence for acute intracranial hemorrhage or transcortical infarct.
2. Severe white matter leukoaraiosis in the frontal and parietal lobes which appears unchanged.
3. Moderate diffuse cerebral and cerebellar volume loss.
4. 3.8 cm arachnoid cyst in the right side of the posterior fossa which appears unchanged.
5. Endotracheal tube in place with a moderate amount of layering fluid in the posterior nasopharynx.
CXR 09-16-2023:
1. MODERATE ACUTE INTERSTITIAL and ALVEOLAR CARDIOGENIC PULMONARY EDEMA which is not definitively changed.
2. Mild cardiomegaly.
3. Endotracheal and nasogastric tubes remaining in place.
Subjective Dataa
Subjective Data
Date of Service:
Date of Service: September 19, 2023
Chief Complaint: Zipper Joiner Follow Up (Status postcardiac arrest)
Subjective:
Remains critically ill, intubated, unresponsive.
On low rate vasopressors.
No meaningful neurological recovery
Has remained on propofol due to? Seizure activity.
Review of Systems
General: Unobtainable - Pat Unresp
Objective Data
Data Reviewed
Vital Signs / I&O / Oxygen:
Vital Signs
Temp Pulse Resp BP Pulse Ox
97.9 F 75 16 106/62 98
09/19/23 08:00 09/19/23 06:00 09/19/23 06:00 09/19/23 04:00 09/19/23 08:16
Intake and Output
09/18/23 09/19/23 09/20/23
06:59 06:59 06:59
Intake Total 4269.8 / 4473.8 1569.6 / 1569.6
Output Total 1775 / 1875 4115 / 4115
Balance 2494.8 / 2598.8 -2545.4 / -2545.4
SaO2 [A/C] 98
SaO2 98
Physical Exam
General: Comfortable
HEENT: Other (ET tube in place without secretion)
Cardiovascular: S1-S2
Respiratory: Clear and Non-Labored Respirations
GI: Soft and Non Distended
Neurology: Other (Pupils are pinpoint and sluggish.) and Other (With sedation decreased, has respiratory effort, has corneal reflex, mild gag reflex. Does not withdraw to pain. Not following commands.)
Skin: Warm
Labs/Micro/Reports
Lab Data
09/19/23 04:27
Laboratory Results
09/19/23
04:27
APTT 51.2 H
pH 7.44
pCO2 33 L
pO2 120 H
HCO3 22.4
O2 Delivery Level 40%
Microbiology
09/16/23 12:03 Blood/Venous Blood Culture - Preliminary
No Growth in 48 hours- Final report to follow
09/16/23 14:19 Endotracheal Respiratory Culture - Final
Yeast
09/16/23 14:19 Endotracheal Gram Stain - Final
09/16/23 14:19 Urine Urine Culture - Final
NO GROWTH
09/16/23 14:19 Nose Nasal Screen MRSA (PCR) - Final
MRSA not detected - performed by PCR methodology.
09/16/23 12:03 Urine Legionella Urinary Antigen - Final
Negative for Legionella pneumophila Serogroup 1 antigen.
A negative result does not rule out the possiblity of
Legionella infection due to other serogroups or species of
Legionella. Clinical correlation is recommended.
09/16/23 12:03 Urine Streptococcus pneumoniae Antigen (M - Final
Negative for Streptococcus pneumoniae antigen.
A negative result does not exclude infection with
Streptococcus pneumoniae. Clinical correlation is
recommended.
--- NOTE | 2023-09-19 11:18 | W.PN.UPDATE ---
Update Note
Progress Note Update
Discussion with daughter today. She would not want to continue with resuscitation efforts as patient wishes in the past did not align with future potential long hospital stay with unlikely neurological recovery.
Will move towards comfort care.
Family is coming to visit.
Once they are ready will extubate. Will focus on keeping him comfortable.
Will discontinue nonessential medications at this point.
--- NOTE | 2023-09-19 11:37 | PTCARENOTE ---
1120-[employer] coordinator notified of pt's family intentions to withdrawal care today.[employer] has signed off pt's case as per coordinator.
[2023-09-19 12:00] VITALS: BP 104/69
--- NOTE | 2023-09-19 12:04 | PTCARENOTE ---
Pt assessed.No change in assessment noted.Awaiting family members arrival .
[2023-09-19] MEDS: TYLENOL ORAL SOLUTION TUBE (12:05)
--- NOTE | 2023-09-19 12:26 | CM ---
CM following re: discharge planning.
Discussed in Rounds, reviewed pt's chart, met with pt.
Per Rounds meeting, GOC discussion with daughter and the rest of the family, moving towards comfort care, family to visit the pt today.
D/C plan: comfort care.
CM is available for emotional support.
--- NOTE | 2023-09-19 13:11 | W.PN.NEURO.1 ---
Today's Communication / Plan
-
-Anticipate we will move to comfort measures after my conversation with the patient's daughter at bedside this more
-Can come off continuous EEG
-Would remain on the current doses of levetiracetam and lacosamide
Discussed with Dr Vale
Neuro Assessment/Plan
Assessment
78 year old man with history of alcohol use disorder, hypertension, hyperlipidemia, imaging finding of previous stroke, previous seizure possibly alcohol related presenting with cardiac arrest. Undergoing TTM.
Approximately 30 minutes of downtime with arrest.
Initial CT head non contrast with no acute changes, no edema had fairly normal bishop/white matter differentiation. Repeated EEG officially read as not demonstrating edema.
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
EEG from 09/17 on my interpretation does show some evidence of loss of sylvester-white matter differentiation in the frontal lobes bilaterally, no evidence of significant cerebral edema or hemorrhage or masses
Patient presumed to have sustained significant anoxic brain injury
On minimal sedation 09/18 patient is comatose, no purposeful movements or evidence of awareness on neurologic exam
Malignant EEG along with myoclonus is a poor prognostic factor, patient continues to have highly abnormal EEG with suppression, generalized periodic discharge
Overall patient's prognosis from a neurologic perspective is on the poor side, patient with coma and highly abnormal EEG after being rewarmed from cardiac arrest. I do not feel there is a reasonable chance of recovery to a independent or meaningful
neurologic state taking into account the patient's wishes for quality of life. Discussed this with the patient's daughter at bedside who feels that patient would not want to continue with current invasive treatments and she feels sure that his
current state prognosis are not morning which she would want to continue living.
Subjective/Objective
Subjective Data
Date of Service: September 19, 2023
No acute events, remains on continuous EEG, on 20 of propofol, intubated, comatose
Objective Data
Vital Signs
Temp Pulse Resp BP Pulse Ox
96.7 F L 92 16 116/68 99
09/19/23 11:00 09/19/23 11:00 09/19/23 11:00 09/19/23 08:00 09/19/23 12:00
Lab Results
09/19/23 04:27
PT 16.4 Sec (11.4-14.6) H 09/18/23 04:08
INR 1.34 09/18/23 04:08
APTT 51.2 Sec (23.4-35.0) H 09/19/23 04:27
Sodium 125 mmol/L (135-145) L 09/19/23 04:27
Potassium 3.4 mmol/L (3.5-5.1) L 09/19/23 04:27
BUN 19 mg/dl (9-20) 09/19/23 04:27
Glucose 121 mg/dl (70-99) H 09/19/23 04:27
Calcium 7.5 mg/dl (8.4-10.2) L 09/19/23 04:27
Phosphorus Cancelled 09/17/23 21:00
Cmd-V-Karzdvmpbzg Pept [id number] pg/ml 09/16/23 01:14
Patient Allergies
No Known Allergies Allergy (Verified 02/14/23 16:44)
Review of Systems
-
Unable to obtain full review of systems at this time due to: Coma
Physical Exam
-
General: Intubated and Obese
Eyes: No Ptosis
HEENT: Normocephalic
Neck: No Bruits Bilaterally
Respiratory: Clear to Auscultation
Cardiac: Regular Rhythm
GI: Normal Bowel Sounds
Skin: Unremarkable
Extremities: No Clubbing
Psych: Unable to Assess
Extended Neurological Exam
Attention Span & Concentration: Other (Comatose E1V1M1)
Memory: Unable to Assess
Speech: Mute
Cranial Nerve II: Left Eye: Other (Pupils 2 mm equal and miotic no reaction to light)
Cranial Nerve II: Right Eye: Other (Pupils 2 mm equal and miotic no reaction to light)
Cranial Nerves III, IV, : Extraocular Movement: Other (Resting gaze midline, VOR intact)
Cranial Nerve V: Facial Sensation: Other (Corneal reflex intact bilaterally)
Cranial Nerve VII: Facial Symmetry: Other (Corneal reflex intact bilaterally)
Cranial Nerves IX, X: Palate Movement: Other (No cough appreciated on my suctioning)
Muscle Strength, Overall: Other (No movement to sternal rub or pain in hands bilaterally, feet show triple flexion response bilaterally)
Deep Tendon Reflexes: Unremarkable Throughout
Babinski Sign: Absent Bilaterally
Data Reviewed
-
CT Head: Report Reviewed and Image Reviewed
EEG: Report Reviewed
--- NOTE | 2023-09-19 14:01 | RESPNOTE ---
patient terminally extubated at this time. family at bedside.
--- NOTE | 2023-09-19 14:06 | PTCARENOTE ---
Pt extubated.Medications discontinued.Pt's family at bedside.Emotional support given.
--- NOTE | 2023-09-19 16:00 | PTCARENOTE ---
Pt assessed.No change in assessment noted.
--- NOTE | 2023-09-19 16:39 | W.PN.UPDATE ---
Update Note
Progress Note Update
Patient has been extubated.
Now has been transferred to [facility].
Critical care team will sign off.
[2023-09-19] MEDS: LEVSIN ORAL DROPS 0.125 MG SL (18:03)
--- NOTE | 2023-09-19 20:00 | PTCARENOTE ---
rec`d pt at [address] on monitor. michael in place. comfort care continued. POX in 80s. prn meds given for comfort. inspir and expir wheeze. rectal tube in place. thibodeaux draining yellow urine. safe environment maintained.
[2023-09-19] MEDS: MORPHINE SULFATE 2 MG IV (22:58)
[2023-09-20] MEDS: MORPHINE SULFATE 2 MG IV ×7 (00:45→23:51)
[2023-09-20] MEDS: LEVSIN ORAL DROPS 0.125 MG SL ×2 (00:46→08:39)
[2023-09-20] MEDS: ATIVAN 2 MG IV (06:12)
[2023-09-20] MEDS: ASPIRIN RECTAL (07:34)
--- NOTE | 2023-09-20 07:48 | W.PN.HOSP.TC ---
Today's Communication/Plan
-
see bold
Assessment / Plan
Assessment / Plan
Gen: NAD, NCAT
CV: tachy, reg rhythm, +S1/S2, no m/r/g.
Resp: rcontinues to remain CTAB anteriorly, no rales, wheezes, or rhonchi.
Skin: No rashes. No lower ext edema
Neuro: unresponsive
09/16/23 12:03 Blood/Venous Blood Culture - Preliminary
No Growth in 72 hours- Final report to follow
09/16/23 14:19 Endotracheal Respiratory Culture - Final
Yeast
09/16/23 14:19 Endotracheal Gram Stain - Final
09/16/23 14:19 Urine Urine Culture - Final
NO GROWTH
09/16/23 14:19 Nose Nasal Screen MRSA (PCR) - Final
MRSA not detected - performed by PCR methodology.
09/16/23 12:03 Urine Legionella Urinary Antigen - Final
Negative for Legionella pneumophila Serogroup 1 antigen.
A negative result does not rule out the possiblity of
Legionella infection due to other serogroups or species of
Legionella. Clinical correlation is recommended.
09/16/23 12:03 Urine Streptococcus pneumoniae Antigen (M - Final
Negative for Streptococcus pneumoniae antigen.
A negative result does not exclude infection with
Streptococcus pneumoniae. Clinical correlation is
recommended.
09/15/23 23:12 Nasal Swab Influenza Types A & B (NAOMI) - Final
Negative for Influenza A & B, NAAT
Negative results must be combined with clinical observations
and patient history.
Nucleic Acid Amplification test (NAAT)performed on the
[employer] platform.
CXR:
1. MODERATE ACUTE INTERSTITIAL and ALVEOLAR CARDIOGENIC PULMONARY EDEMA which is not definitively changed.
2. Mild cardiomegaly.
3. Endotracheal and nasogastric tubes remaining in place.
CT brain:
1. No CT evidence for acute intracranial hemorrhage or transcortical infarct.
2. Severe white matter leukoaraiosis in the frontal and parietal lobes which appears unchanged.
3. Moderate diffuse cerebral and cerebellar volume loss.
4. 3.8 cm arachnoid cyst in the right side of the posterior fossa which appears unchanged.
5. Endotracheal tube in place with a moderate amount of layering fluid in the posterior nasopharynx.
CTA C/A/P:
CHEST CTA:
1. Large amount of symmetric bilateral airspace consolidation in the lower lobes and moderate centrilobular ground-glass opacity in the upper lobes which is most consistent with SEVERE ACUTE ALVEOLAR PULMONARY EDEMA given the history of cardiac
arrest. SEVERE BILATERAL PNEUMONIA (possibly aspiration pneumonia) is an alternative diagnostic possibility.
2. Small bilateral pleural effusions.
3. Severe calcific atherosclerotic plaque in the coronary arteries.
4. Severe calcific atherosclerotic plaque in the thoracic aorta.
5. Moderate calcification in the aortic valve.
6. Endotracheal and nasogastric tubes in place.
7. 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
ABDOMEN and PELVIS CTA:
1. Severe calcific atherosclerotic plaque in the abdominal aorta.
2. No CTA evidence for abdominal aortic aneurysm or dissection.
3. Severe diffuse hepatic steatosis.
4. Mild chronic bilateral renal disease.
5. Mild perisplenic ascites.
6. Severely enlarged prostate gland.
7. Severe thickening of the urinary bladder wall suggesting chronic outlet obstruction.
8. Moderate diverticulosis in the descending and sigmoid colon.
9. Nasogastric tube and Roberto catheter in place.
cEEG:
09/17/23: Severely abnormal EEG for age in wakefulness through drowsiness due to isoelectric burst suppression activity lack of unresponsiveness. This study was suggestive of severe bihemispheric suppression of activity.
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
Echo: EF 15%, G3DD, mod-sev , global hypokinesis with mid anteroseptal, mid septal, mid anterior, mid lateral, and apical akinesis.
CT brain 09/18/23: No acute intracranial abnormality noted.
On 09/18/23 the pt was made comfort care. Cont Morphine/ativan PRN, will likely need morphine gtt.
In summary, the most likely series of events was acute anoxic encephalopathy due to acute hypoxemic respiratory failure due to acute heart failure with reduced ejection fraction due to out of hospital PEA cardiac arrest possibly due to NSTEMI.
From 09/18/23:
Acute cardiac Arrest/Acute hypoxemic and hypercapnic respiratory failure:
-Patient with PEA arrest s/p CPR x 30 min and 4 rounds of EPI with ROSC. Unresponsive afterwards. Arrived intubated in ED. ECG on admission without acute ischemia. Trop 0.19 (peaked at 39.9). No evidence of PE. Possible multifocal pneumonia
with hypoxia as cause of arrest versus pulmonary edema. No evidence of diffuse total body volume overload.
-Acute hypoxemic and hypercapnic respiratory failure due to PEA arrest, possible multifocal pneumonia (possibly due to aspiration), possible heart failure due to cardiac arrest/pulm edema, likely NSTEMI.
-cont Zosyn
-cont Levophed for MAP > 65
-Targeted temperature management
-cont Propofol/fentanyl
-currently on heparin gtt, will stop this AM
-cards/neuro/bisque brusher following
-Lactic acidosis (acute metabolic acidosis), resolved with IVFs
-Also acute respiratory acidosis
-Lasix trialed in the ED with about 200 cc of urine output
-s/p IVFs with HCO3-
Hyperglycemia:
-a1c 5.1%
-was on insulin infusion, now off
-accuchecks
Seizure d/o:
-h/o seizures 6 months ago. Unclear if from withdrawal or secondary to CVA. On keppra at home.
-Appeared to have been having possible status epilepticus in ED
-pt loaded with 3g Keppra on admission
-EEG on 09/16/23 with burst suppression concerning for seizure activity so versed gtt was started 09/16/23, stopped 09/17/23
-cont Keppra/Vimpat
-cont cEEG
-cont propofol
Hypomagnesemia, resolved
Hypotonic Hyponatremia: Likely SIADH. appreciate renal. s/p IV Lasix
Hypokalemia, resolved
Anticipated Discharge: Today
Subjective/Interval History
-
Date of Service: September 20, 2023
unresponsive.
Objective Data
-
Labs:
Laboratory Results
09/19/23 09/19/23 09/20/23
21:27 23:05 06:00
WBC Cancelled
Hgb Cancelled
Hct Cancelled
Plt Count Cancelled
APTT Cancelled
Sodium Cancelled
Potassium Cancelled
Chloride Cancelled
Carbon Dioxide Cancelled
BUN Cancelled
Creatinine Cancelled
Glucose Cancelled
Calcium Cancelled
Vital Signs:
Vital Signs
Temp Pulse Resp BP Pulse Ox
99.3 F 99 25 104/69 75
09/20/23 07:33 09/20/23 05:30 09/20/23 05:30 09/19/23 12:00 09/20/23 05:30
I&O
09/19/23 09/20/23 09/21/23
06:59 06:59 06:59
Intake Total 1569.6 / 1614.4 234.6 / 234.6
Output Total 4115 / 4145 250 / 250
Balance -2545.4 / -2530.6 -15.4 / -15.4
--- NOTE | 2023-09-20 08:00 | PTCARENOTE ---
Received patient from assembler 1st shift. Patient appears to have some respiratory dyspnea. Will give morphine and levsin for oral secretions. Patient is on comfort care. Right radial Angelica still intact, patient on room air. Will medicate patient per
MAR and pull A-line. review orders.
--- NOTE | 2023-09-20 09:10 | CM ---
Addendum entered by Trey Finnegan 09/20/23 12:25:
CM met with pt's daughter Kianna this morning [phone]. Pt's daughter stated that she and her brother agree that hospice care is the most appropriate level of care at this time. Emotional support offered and provided. Pt's daughter has been
notified that medical scientific liaison will reach out to her regarding hospice.
Original Note:
CM following re: discharge planning.
Reviewed pt's chart. per chart review, pt extubated yesterday and comfort care initiated.
Hospice care consult noted. pt referred to hospice for inpatient hospice with [facility].
D/C plan: Hospice care with hospice [facility].
CM is available for emotional support.
[2023-09-20] MEDS: MORPHINE 100 IV (12:39)
--- NOTE | 2023-09-20 12:45 | PTCARENOTE ---
Transitioned patient onto morphine gtt per order set. Patient continues to be unresponsive, Will turn and bathe patient, keeping him comfortable.
[2023-09-20] MEDS: ROBINUL 0.200000000000000011 MG IV ×2 (12:52→20:47)
--- NOTE | 2023-09-20 13:16 | HOSPNOTE ---
Referral recieved. Patient is currently on comfort care. Morphine drip infusing. Attending feels is imminent. Called and spoke to daughter Kianna. She understands and is in agreement with comfort care today and transfer to [address] [place] [address]. I
reviewed if patient is with us tomorrow, will reevaluate for inpatient hospice admission tomorrow. She is agreeable. CM and attending updated. Primary nurse also updated.
[2023-09-20 16:34] VITALS: BP 106/66
[2023-09-20 20:09] VITALS: BP 127/65
[2023-09-21] MEDS: NSS (PRESERVATIVE FREE) 1 ML IV ×2 (00:54→05:07)
[2023-09-21] MEDS: ATIVAN 2 MG IV ×2 (00:54→05:07)
[2023-09-21] MEDS: MORPHINE SULFATE 2 MG IV ×4 (00:55→03:39)
[2023-09-21] MEDS: ROBINUL 0.200000000000000011 MG IV (02:04)
[2023-09-21] MEDS: MORPHINE SULFATE 4 MG IV ×2 (05:06→05:59)
--- NOTE | 2023-09-21 07:12 | W.PN.DEATH ---
Pronouncement of
-
Called to see patient to pronounce.
No spontaneous heart tones or respirations noted.
Patient not responsive to verbal stimuli.
Patient is pronounced .
Time of : 07:10
Date of : 09/21/23
Cause of : acute anoxic encephalopathy due to acute hypoxemic respiratory failure due to acute heart failure with reduced ejection fraction due to out of hospital PEA cardiac arrest possibly due to NSTEMI
Family Notified: Yes (pt's daughter over the phone)
--- NOTE | 2023-09-21 09:44 | W.DCSUMMARY ---
Discharge Summary
Discharge Data
Date of Admission: 09/15/23
Date of Discharge: 09/21/23
-
Pending Results: No
Hospital Course
Primary diagnoses:
Acute anoxic encephalopathy due to acute hypoxemic and hypercapnic respiratory failure due to acute heart failure with reduced ejection fraction due to out of hospital pulseless electrical activity cardiac arrest possibly due to non-ST elevation
myocardial infarction
Seizure disorder with acute seizure activity
Acute respiratory acidosis
Acute lactic acidosis (metabolic acidosis)
Secondary diagnoses:
Hyperglycemia
Essential hypertension
Alcohol abuse disorder
Possible history of cerebrovascular accident
Hypomagnesemia
Hypotonic Hyponatremia likely due to syndrome of inappropriate antidiuretic hormone
Hypokalemia
Consultants:
Cardiology
Neurology
Critical care medicine
Gastroenterology
Imaging:
CXR:
1. MODERATE ACUTE INTERSTITIAL and ALVEOLAR CARDIOGENIC PULMONARY EDEMA which is not definitively changed.
2. Mild cardiomegaly.
3. Endotracheal and nasogastric tubes remaining in place.
CT brain:
1. No CT evidence for acute intracranial hemorrhage or transcortical infarct.
2. Severe white matter leukoaraiosis in the frontal and parietal lobes which appears unchanged.
3. Moderate diffuse cerebral and cerebellar volume loss.
4. 3.8 cm arachnoid cyst in the right side of the posterior fossa which appears unchanged.
5. Endotracheal tube in place with a moderate amount of layering fluid in the posterior nasopharynx.
CTA C/A/P:
CHEST CTA:
1. Large amount of symmetric bilateral airspace consolidation in the lower lobes and moderate centrilobular ground-glass opacity in the upper lobes which is most consistent with SEVERE ACUTE ALVEOLAR PULMONARY EDEMA given the history of cardiac
arrest. SEVERE BILATERAL PNEUMONIA (possibly aspiration pneumonia) is an alternative diagnostic possibility.
2. Small bilateral pleural effusions.
3. Severe calcific atherosclerotic plaque in the coronary arteries.
4. Severe calcific atherosclerotic plaque in the thoracic aorta.
5. Moderate calcification in the aortic valve.
6. Endotracheal and nasogastric tubes in place.
7. 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
ABDOMEN and PELVIS CTA:
1. Severe calcific atherosclerotic plaque in the abdominal aorta.
2. No CTA evidence for abdominal aortic aneurysm or dissection.
3. Severe diffuse hepatic steatosis.
4. Mild chronic bilateral renal disease.
5. Mild perisplenic ascites.
6. Severely enlarged prostate gland.
7. Severe thickening of the urinary bladder wall suggesting chronic outlet obstruction.
8. Moderate diverticulosis in the descending and sigmoid colon.
9. Nasogastric tube and Roberto catheter in place.
cEEG:
09/17/23: Severely abnormal EEG for age in wakefulness through drowsiness due to isoelectric burst suppression activity lack of unresponsiveness. This study was suggestive of severe bihemispheric suppression of activity.
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
Echo: EF 15%, G3DD, mod-sev , global hypokinesis with mid anteroseptal, mid septal, mid anterior, mid lateral, and apical akinesis.
CT brain 09/18/23: No acute intracranial abnormality noted.
Hospital course: 78-year-old male who presented after an out of hospital PEA cardiac arrest as outlined in the H&P done on admission. Patient was being evaluated by medics for shortness of breath and had a cardiac arrest. CPR was performed for
approximately 30 minutes. Before return of spontaneous circulation. He required 4 rounds of epinephrine. ECG on admission without acute ischemia. Patient was intubated in the ER. Patient was placed on vasopressors. All imaging above.
Continuous EEG was notable for seizure activity the patient was on a midazolam drip. Patient was loaded with Keppra on admission. He was continued on Keppra and Vimpat. The patient's troponin peaked at 39.9. There was concern for multifocal
pneumonia and the patient was on Zosyn. His pressure was supported with vasopressors. He underwent targeted temperature management. He was on a heparin drip for 48 hours for NSTEMI. The patient's daughter decided to transition the patient to
comfort care on 09/18/23. His final diagnosis was acute anoxic encephalopathy due to acute hypoxemic and hypercapnic respiratory failure due to acute heart failure with reduced ejection fraction due to out of hospital PEA cardiac arrest possibly due
to NSTEMI. He was placed on a morphine drip and peacefully at 0710 on September 21, 2023.
Discharge Plan
-
Referrals:
Suleman Smith, DO [Family Provider] -
Prescriptions:
No Action
acetaminophen [Tylenol] 325 mg Tablet
325 mg PO DAILYPRN PRN (Reason: mild pain)
therapeutic multivitamin Tablet
1 tab PO DAILY
zinc gluconate 50 mg Tablet
50 mg PO DAILY
propranolol 20 mg Tablet
40 mg PO HS
cholecalciferol (vitamin D3) [Vitamin D3] 25 mcg (1,000 unit) Tablet
25 mcg PO DAILY
Prevagen capsule
1 cap PO DAILY
lisinopril 5 MG tablet
5 mg PO DAILY
clopidogrel 75 mg Tablet
75 mg PO DAILY 20 Days Qty: 20 0RF
aspirin 81 mg tablet,delayed release (DR/EC)
81 mg PO DAILY 30 Days Qty: 30 0RF
levetiracetam [Keppra] 500 mg tablet
500 mg PO BID 30 Days Qty: 60 0RF
Discharge Date and Time
Print Language: MALAYSIAN
--- NOTE | 2023-09-21 09:56 | W.PN.UPDATE ---
Update Note
Progress Note Update
Total time spent on d/c = 31 min. This included today's physical exam, progress note, review of laboratory and diagnostic data, preparation of discharge documents and prescriptions, and discussions about the pt's hospital course and discharge plan
with the patient and other medical billing assistant involved in the patient's care.
--- NOTE | 2023-09-21 10:39 | HOSPNOTE ---
Condolence call placed to daughter Kianna after noting that patient had on comfort care. Voicemail left with return phone number to call if desired. Emotional support offered.
--- NOTE | 2023-09-21 11:12 | CM ---
patient on comfort care this morning.hospice has reached out to the family.
== END 2023-09-21 07:10 | disposition expired ==
LOC: 2 NORTH 22:51
PROVIDERS: Internal Medicine Cardiovascular Disease; Nurse Practitioner Primary Care; ADMITTING PHYSICIAN Internal Medicine; ATTENDING PHYSICIAN Internal Medicine; CONSULT PHYSICIAN Internal Medicine Cardiovascular Disease; CONSULT PHYSICIAN Internal Medicine Critical Care Medicine; CONSULT PHYSICIAN Internal Medicine Gastroenterology; CONSULT PHYSICIAN Psychiatry & Neurology Neurology; CONSULT PHYSICIAN Specialist; EMERGENCY PHYSICIAN Student in an Organized Health Care Education/Training Program; FAMILY PHYSICIAN Family Medicine
PROC: 5A1945Z Respiratory Ventilation, 24-96 Consecutive Hours (ICD-10-PCS; 2023-09-15)
DX: I21.4 Non-ST elevation (NSTEMI) myocardial infarction (principal); I50.21 Acute systolic (congestive) heart failure; J69.0 Pneumonitis due to inhalation of food and vomit; J96.01 Acute respiratory failure with hypoxia; J96.02 Acute respiratory failure with hypercapnia; R40.20 Unspecified coma; I63.9 Cerebral infarction, unspecified; E22.2 Syndrome of inappropriate secretion of antidiuretic hormone; G93.1 Anoxic brain damage, not elsewhere classified; E87.4 Mixed disorder of acid-base balance; Z66 Do not resuscitate; Z51.5 Encounter for palliative care; I11.0 Hypertensive heart disease with heart failure; I73.9 Peripheral vascular disease, unspecified; F10.20 Alcohol dependence, uncomplicated; D64.9 Anemia, unspecified; G93.0 Cerebral cysts; G40.909 Epilepsy, unspecified, not intractable, without status epilepticus; E66.9 Obesity, unspecified; R57.0 Cardiogenic shock; I46.2 Cardiac arrest due to underlying cardiac condition; I44.39 Other atrioventricular block; E78.00 Pure hypercholesterolemia, unspecified; E83.42 Hypomagnesemia; E87.6 Hypokalemia; G25.0 Essential tremor; G62.9 Polyneuropathy, unspecified; H91.90 Unspecified hearing loss, unspecified ear; K21.9 Gastro-esophageal reflux disease without esophagitis; N40.0 Benign prostatic hyperplasia without lower urinary tract symptoms; R73.9 Hyperglycemia, unspecified; Z96.651 Presence of right artificial knee joint; Z68.27 Body mass index [BMI] 27.0-27.9, adult; Z86.73 Personal history of transient ischemic attack (TIA), and cerebral infarction without residual deficits; Z79.02 Long term (current) use of antithrombotics/antiplatelets; Z79.82 Long term (current) use of aspirin; Z79.899 Other long term (current) drug therapy; Z87.891 Personal history of nicotine dependence
CPT/HCPCS: 36556; 36600; 51702; 70450; 71045; 71275; 74174; 80048; 80051; 80053; 80202; 81003; 81015; 82330; 82550; 82553; 82805; 82962; 83036; 83605; 83735; 83880; 83930; 83935; 84100; 84132; 84134; 84145; 84300; 84302; 84478; 84484; 85025; 85027; 85610; 85730; 86850; 86900; 86901; 87040; 87070; 87086; 87205; 87449; 87502; 87641; 87811; 87899; 93005; 93306; 94002; 94003; 95714; 96365; 96366; 96367; 96375; 99291; C9254; Q9950; Q9967